=== PATIENT | female | born 1990 | race Caucasian/White ===

== ENCOUNTER → 2016-07-10 | Outpatient (CLI) | payer BC ==
--- NOTE | 2016-07-10 10:14 | US ---
EXAMINATION TYPE: US abdomen complete DATE OF EXAM: 07/10/2016 9:31 AM COMPARISON: on PACS CLINICAL HISTORY: R11.2 Nausea Vomiting R10.10 Abd Pain K21.9Reflux. Bloating. Nausea after eating. EXAM MEASUREMENTS: Liver Length: 15.3 cm Gallbladder Wall: 0.2 cm CHD: 0.3 cm Spleen: 13.4 cm Right Kidney: 11.4 x 4.9 x 3.5 cm Left Kidney: 11.7 x 5.5 x 4.9 cm TECHNOLOGIST IMPRESSION: Pancreas: not seen due to overlying bowel gas Liver: wnl Gallbladder: wnl Evidence for sonographic Kim's sign: negative CHD: wnl Spleen: enlarged Right Kidney: medial anechoic lesion at hilum = 1.8 x 1.1 x 1.1 cm Left Kidney: wnl Upper IVC: seen Abd Aorta: seen The gallbladder wall measures 2.4 mm. The pancreas is poorly visualized. There is a extrarenal pelvis on the right. IMPRESSION: LIMITED EXAMINATION SHOWING NO DEFINITE ACUTE ABNORMALITY.
== END | disposition home or self-care (01) ==
LOC: RADUSWWP 08:59
PROVIDERS: ATTEND Family Medicine
DX: K21.9 Gastro-esophageal reflux disease without esophagitis (principal)
CPT/HCPCS: 76700

== ENCOUNTER 2016-08-28 10:12 | Day surgery (SDC) | payer BC ==
[2016-08-27 08:48] VITALS: BMI 35.4
[~2016-08-28 10:12] MED LIST: LACTATED RINGERS 1,000 ML IV SCH; LIDOCAINE 1% 20 ML VIAL (10MG/ML) FOR IV START INTRADERMA PRN
[2016-08-28 10:48] VITALS: TEMP 98
[2016-08-28] MEDS ORDERED: LACTATED RINGERS 1,000 ML IV ONE (10:50)
[2016-08-28] MEDS ORDERED: PROPOFOL 10 MG/ML 20 ML VIAL IV ONE (11:28)
[2016-08-28] MEDS ORDERED: fentaNYL (PF) 50 MCG/ML 2 ML AMP ONE ×2 (11:28)
--- NOTE | 2016-08-28 11:43 | P.PCN ---
Date of Procedure: 08/28/16 Procedure(s) Performed: BRIEF HISTORY: Patient is a 25-year-old, pleasant, white female, scheduled for an upper endoscopy as part of evaluation of epigastric pain and long-standing history of gastroesophageal reflux symptoms. She also has been have complaining of abdominal bloating for the last 2 years duration. She was started on Prilosec 20 mg daily and symptoms are gradually improving. He scheduled for an upper endoscopy to rule out compensated reflux disease. PROCEDURE PERFORMED: Esophagogastroduodenoscopy with biopsy. PREOPERATIVE DIAGNOSIS: The gastric pain, long-standing history of GERD and abdominal bloating. IV sedation per anesthesia. PROCEDURE: After informed consent was obtained, the patient was brought into the endoscopy unit. IV sedation was administered by Anesthesia under continuous monitoring. Initially the Olympus GIF-140 video endoscope was inserted into the mouth. Esophagus intubated without any difficulty. It was gradually advanced into the stomach and duodenum and carefully examined. The bulb and the second part of the duodenum appeared normal. The scope at this time was withdrawn to the stomach, adequately insufflated with air, and upon careful examination, mucosa of the antrum, had mild mottling of the mucosa and biopsies were done from this area. The body, cardia and the fundus appeared normal. The scope was then withdrawn into the esophagus. Small hiatal hernia noted. The GE junction was located at 35 cm from the incisors. There was a long segment of Dunn's esophagus extended from 25-35 cm from the incisors and multiple biopsies were done from the segment of Dunn's esophagus. At the proximal segment of the Dunn's esophagus there were 2 superficial erosions identified. The rest of the esophagus appeared normal and the patient tolerated the procedure well. IMPRESSION: 1. 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 2. Small hiatal hernia. 3. Mild antral gastritis. RECOMMENDATIONS: The findings of this examination were discussed with the patient as well as her family. She was advised to follow with the biopsy results. If the biopsy does confirm presence of Dunn's esophagus, she can have a repeat upper endoscopy every 2 years. In the meantime I suggested that she increase the Prilosec to 20 mg twice daily and follow antireflux measures.
[2016-08-28 12:21] VITALS: BP 116/69; PULSE 69; RESP 18
== END 2016-08-28 12:36 | disposition home or self-care (01) ==
LOC: ORWHC2ENDO 10:12
PROVIDERS: ATTEND Internal Medicine Gastroenterology
DX: K29.50 Unspecified chronic gastritis without bleeding (principal); K22.70 Barrett's esophagus without dysplasia; K21.9 Gastro-esophageal reflux disease without esophagitis; K44.9 Diaphragmatic hernia without obstruction or gangrene; K59.00 Constipation, unspecified; Z79.899 Other long term (current) drug therapy; Z88.0 Allergy status to penicillin
CPT/HCPCS: 81025; 88305; 88342; 43239; J3010; J2704

== ENCOUNTER → 2017-08-31 | Outpatient (CLI) | payer OTHER ==
--- NOTE | 2017-08-31 08:22 | CT ---
EXAMINATION TYPE: CT facial bones wo con DATE OF EXAM: 08/31/2017 COMPARISON: NONE HISTORY: Localized swelling, mass and lump, head CT DLP: 746.[address] of the facial bones was performed in the axial and coronal planes. Bone and soft tissu e window settings are submitted. The lack of contrast limits evaluation. There is a rounded unilocular lucent lesion periapical region first premolar on the upper left felt t o reflect a periapical cyst which measures 7.8 x 7 mm. Ventral bony erosion is noted. This may corres pond to the site of "lump". No additional lesions are identified. Paranasal sinuses are well aerated. No evidence for fracture. Nose and upper lip ring is incidentally noted with streak artifact. IMPRESSION: 1. Suspect a periapical cyst first premolar upper left mandibular region. Ventral bony erosion noted.
== END | disposition home or self-care (01) ==
LOC: RADCTMAIN 07:46
PROVIDERS: ATTEND Family Medicine
DX: M89.9 Disorder of bone, unspecified (principal)
CPT/HCPCS: 70486

== ENCOUNTER → 2018-04-06 | Outpatient (CLI) | payer OTHER ==
--- NOTE | 2018-04-06 22:55 | US ---
EXAMINATION TYPE: US transvaginal DATE OF EXAM: 04/06/2018 COMPARISON: CT abdomen and pelvis April 29, 2014 CLINICAL HISTORY: N92.0 Excessive and frequent menstruation with. TECHNIQUE: Transvaginal (TV). Date of LMP: 03/29/18 EXAM MEASUREMENTS: Uterus: 6.0 x 2.6 x 3.8 cm Endometrial Stripe: 0.4 cm Right Ovary: 3.1 x 2.0 x 1.9 cm Left Ovary: 3.4 x 2.1 x 2.0 cm 1. Uterus: Anteverted wnl 2. Endometrium: wnl 3. Right Ovary: wnl 4. Left Ovary: wnl 5. Bilateral Adnexa: wnl 6. Posterior cul-de-sac: wnl IMPRESSION: No suspicious finding is seen to account for patient's symptoms.
== END | disposition home or self-care (01) ==
LOC: RADUSWWP 16:44
PROVIDERS: ATTEND Family Medicine
DX: N92.0 Excessive and frequent menstruation with regular cycle (principal)
CPT/HCPCS: 76830

== ENCOUNTER 2018-07-05 21:40 | Emergency (ER) | payer OTHER ==
[2018-07-05] MEDS ORDERED: SODIUM CHLORIDE 0.9% 1,000 ML IV ONE (21:53)
--- NOTE | 2018-07-05 21:55 | ED ---
General Adult HPI - General Chief complaint: Abdominal Pain Stated complaint: Kidney pain, Fever Time Seen by Provider: 07/05/18 21:52 Source: patient Mode of arrival: ambulatory Limitations: no limitations - History of Present Illness Initial comments: Is a previously healthy 27 her old female presents the emergency department today for evaluation of persistent fever, flank pain. Patient reports she's been experiencing right-sided flank pain for approximately 6 days. She initially thought it was just musculoskeletal back pain however the pain pers isted today she developed a fever. She was evaluated by her primary care physician diagnosed with a urinary infection treated with an IM dose of Rocephin, she's been treating her fever with naproxen she was advised by her primary care that if she has persistent fever despite antibiotic and antipyretic use she should come to the ER for evaluation. Despite using antipyretics she had a persistent fever greater than 100 which prompted her to come here for reevaluation. - Related Data Home Medications Medication Instructions Recorded Confirmed Omeprazole [PriLOSEC] 20 mg PO BID 02/26/16 07/05/18 Naproxen 500 mg PO BID PRN 07/05/18 07/05/18 Allergies Allergy/AdvReac Type Severity Reaction Status Date / Time amoxicillin Allergy Rash/Hives Verified 07/05/18 22:45 Review of Systems ROS Statement: Those systems with pertinent positive or pertinent negative responses have been documented in the HPI. ROS Other: All systems not noted in ROS Statement are negative. Past Medical History Past Medical History: No Reported History Additional Past Medical History / Comment(s): boil on abdomed/ staph History of Any Multi-Drug Resistant Organisms: None Reported Date of last positivie culture/infection: 02/26/16 MDRO Source:: abdomen Past Surgical History: No Surgical Hx Reported Additional Past Surgical History / Comment(s): dermoid cyst on ovary removed Past Anesthesia/Blood Transfusion Reactions: Motion Sickness, Postoperative Nausea & Vomiting (PONV) Past Psychological History: No Psychological Hx Reported Smoking Status: Never smoker Past Alcohol Use History: None Reported Past Drug Use History: None Reported - Past Family History Father Family Medical History: Cancer, Diabetes Mellitus Additional Family Medical History / Comment(s): July 2015 of Esophageal cancer Mother Family Medical History: Diabetes Mellitus General Exam - General Exam Comments Initial Comments: Physical Exam GENERAL: Patient is well-developed and well-nourished. Patient is flushed, skin is warm HENT: Normocephalic, Atraumatic. EYES: PERRL, EOMI PULMONARY: Unlabored respirations. No audible rales rhonchi or wheezing was noted. CARDIOVASCULAR: There is a regular rate and rhythm without any murmurs gallops or rubs. ABDOMEN: Soft and nontender with normal bowel sounds. Right sided flank pain to percussion SKIN: Skin is clear with no lesions or rashes and otherwise unremarkable. : Deferred NEUROLOGIC: Patient is alert and oriented x3. Moving all extremities spontaneously MUSCULOSKELETAL: Normal extremities with adequate strength and full range of motion. No lower extremity swelling or edema. No calf tenderness. PSYCHIATRIC: Normal psychiatric evaluation. Limitations: no limitations Limitations: no limitations Course Vital Signs 07/05/18 07/06/18 21:43 00:39 Temperature 100.5 F H 99.5 F Pulse Rate 134 H 68 Respiratory 20 18 Rate Blood Pressure 124/88 109/70 O2 Sat by Pulse 96 99 Oximetry Medical Decision Making - Medical Decision Making Patient was seen and evaluated history was obtained from the patient Outpatient urinalysis suggestive of UTI patient did receive IM Rocephin Patient is tachycardic and febrile upon arrival a sepsis order set was initiated Patient received antipyretics and IV fluids upon reevaluation her tachycardia has improved significantly her fever has resolved she reports feeling well urinalysis again confirms a urinary tract infection she was given IV Rocephin and advised to resume her oral outpatient antibiotics as prescribed. All questions pertaining care were answered return parameters were discussed the patient was discharged home in stable condition. - Lab Data Result diagrams: 07/05/18 22:15 07/05/18 22:15 Lab Results 07/05/18 07/05/18 07/05/18 Range/Units 22:15 22:15 22:15 WBC 9.5 (3.8-10.6) k/uL RBC 4.88 (3.80-5.40) m/uL Hgb 13.5 (11.4-16.0) gm/dL Hct 40.7 (34.0-46.0) % MCV 83.4 (80.0-100.0) fL MCH 27.8 (25.0-35.0) pg MCHC 33.3 (31.0-37.0) g/dL RDW 13.5 (11.5-15.5) % Plt Count 264 (150-450) k/uL Neutrophils % 80 % Lymphocytes % 11 % Monocytes % 6 % Eosinophils % 1 % Basophils % 0 % Neutrophils # 7.6 (1.3-7.7) k/uL Lymphocytes # 1.1 (1.0-4.8) k/uL Monocytes # 0.6 (0-1.0) k/uL Eosinophils # 0.1 (0-0.7) k/uL Basophils # 0.0 (0-0.2) k/uL Sodium 139 (137-145) mmol/L Potassium 4.2 (3.5-5.1) mmol/L Chloride 107 (98-107) mmol/L Carbon Dioxide 22 (22-30) mmol/L Anion Gap 10 mmol/L BUN 16 (7-17) mg/dL Creatinine 0.68 (0.52-1.04) mg/dL Est GFR (CKD-EPI)AfAm >90 (>60 ml/min/1.73 sqM) Est GFR (CKD-EPI)NonAf >90 (>60 ml/min/1.73 sqM) Glucose 135 H (74-99) mg/dL Plasma Lactic Acid Severiano (0.7-2.0) mmol/L Calcium 9.0 (8.4-10.2) mg/dL Total Bilirubin 0.7 (0.2-1.3) mg/dL AST 26 (14-36) U/L ALT 31 (9-52) U/L Alkaline Phosphatase 71 (38-126) U/L Total Protein 7.5 (6.3-8.2) g/dL Albumin 4.1 (3.5-5.0) g/dL Urine Color Urine Appearance (Clear) Urine pH (5.0-8.0) Ur Specific Paloma (1.001-1.035) Urine Protein (Negative) Urine Glucose (UA) (Negative) Urine Ketones (Negative) Urine Blood (Negative) Urine Nitrite (Negative) Urine Bilirubin (Negative) Urine Urobilinogen (<2.0) mg/dL Ur Leukocyte Esterase (Negative) Urine RBC (0-5) /hpf Urine WBC (0-5) /hpf Ur Squamous Epith Cells (0-4) /hpf Urine Mucus (None) /hpf Urine HCG, Qual Not Detected (Not Detectd) Influenza Type A RNA (Not Detectd) Influenza Type B (PCR) (Not Detectd) 07/05/18 07/05/18 07/05/18 Range/Units 22:15 22:15 22:30 WBC (3.8-10.6) k/uL RBC (3.80-5.40) m/uL Hgb (11.4-16.0) gm/dL Hct (34.0-46.0) % MCV (80.0-100.0) fL MCH (25.0-35.0) pg MCHC (31.0-37.0) g/dL RDW (11.5-15.5) % Plt Count (150-450) k/uL Neutrophils % % Lymphocytes % % Monocytes % % Eosinophils % % Basophils % % Neutrophils # (1.3-7.7) k/uL Lymphocytes # (1.0-4.8) k/uL Monocytes # (0-1.0) k/uL Eosinophils # (0-0.7) k/uL Basophils # (0-0.2) k/uL Sodium (137-145) mmol/L Potassium (3.5-5.1) mmol/L Chloride (98-107) mmol/L Carbon Dioxide (22-30) mmol/L Anion Gap mmol/L BUN (7-17) mg/dL Creatinine (0.52-1.04) mg/dL Est GFR (CKD-EPI)AfAm (>60 ml/min/1.73 sqM) Est GFR (CKD-EPI)NonAf (>60 ml/min/1.73 sqM) Glucose (74-99) mg/dL Plasma Lactic Acid Severiano 0.9 (0.7-2.0) mmol/L Calcium (8.4-10.2) mg/dL Total Bilirubin (0.2-1.3) mg/dL AST (14-36) U/L ALT (9-52) U/L Alkaline Phosphatase (38-126) U/L Total Protein (6.3-8.2) g/dL Albumin (3.5-5.0) g/dL Urine Color Yellow Urine Appearance Clear (Clear) Urine pH 7.5 (5.0-8.0) Ur Specific [place] 1.014 (1.001-1.035) Urine Protein Trace H (Negative) Urine Glucose (UA) Negative (Negative) Urine Ketones Negative (Negative) Urine Blood Negative (Negative) Urine Nitrite Negative (Negative) Urine Bilirubin Negative (Negative) Urine Urobilinogen 2.0 (<2.0) mg/dL Ur Leukocyte Esterase Moderate H (Negative) Urine RBC 4 (0-5) /hpf Urine WBC 61 H (0-5) /hpf Ur Squamous Epith Cells 4 (0-4) /hpf Urine Mucus Rare H (None) /hpf Urine HCG, Qual (Not Detectd) Influenza Type A RNA Not Detected (Not Detectd) Influenza Type B (PCR) Not Detected (Not Detectd) Disposition Clinical Impression: UTI (urinary tract infection) Disposition: HOME SELF-CARE Condition: Good Instructions (If sedation given, give patient instructions): Urinary Tract Infection in Women (ED) Is patient prescribed a controlled substance at d/c from ED?: No Referrals: David Robison III, MD [Primary Care Provider] - 1-2 days
[2018-07-05] MEDS ORDERED: ACETAMINOPHEN TAB 500 MG TAB PO STA (22:36)
[2018-07-05 22:37] LABS: Basophils % (A) 0 %; Eosinophils # (A) 0.1 k/uL (0-0.7); Eosinophils % (A) 1 %; HCT 40.7 % (34.0-46.0); HGB 13.5 gm/dL (11.4-16.0); Lymphocytes # (A) 1.1 k/uL (1.0-4.8); Lymphocytes % (A) 11 %; MCH 27.8 pg (25.0-35.0); MCHC 33.3 g/dL (31.0-37.0); MCV 83.4 fL (80.0-100.0); Mean Platelet Volume 6.5; Monocytes # (A) 0.6 k/uL (0-1.0); Monocytes % (A) 6 %; Neutrophils # (A) 7.6 k/uL (1.3-7.7); Neutrophils % (A) 80 %; Platelet Count 264 k/uL (150-450); RBC 4.88 m/uL (3.80-5.40); RDW 13.5 % (11.5-15.5); WBC 9.5 k/uL (3.8-10.6)
[2018-07-05] MEDS: SODIUM CHLORIDE 0.9% 500 ML 500 ML IV SCH (22:41)
[2018-07-05 22:53] LABS: ALT 31 U/L (9-52); AST 26 U/L (14-36); Albumin 4.1 g/dL (3.5-5.0); Alkaline Phosphatase 71 U/L (38-126); Anion Gap 10 mmol/L; Blood Urea Nitrogen 16 mg/dL (7-17); Carbon Dioxide 22 mmol/L (22-30); Chloride 107 mmol/L (98-107); Glucose 135 mg/dL (74-99); Potassium 4.2 mmol/L (3.5-5.1); Sodium 139 mmol/L (137-145); Total Bilirubin 0.7 mg/dL (0.2-1.3); Total Protein 7.5 g/dL (6.3-8.2)
[2018-07-05 22:57] LABS: Appearance,Urine Clear (Clear); Bilirubin,Urine Negative (Negative); Blood,Urine Negative (Negative); Color,Urine Yellow; Glucose,Urine (UA) Negative (Negative); Ketones,Urine Negative (Negative); Leukocyte Esterase,Urine Moderate (Negative); Mucus,Urine Rare /hpf; Nitrite,Urine Negative (Negative); PH, Urine 7.5 (5.0-8.0); Protein,Urine Trace (Negative); RBC,Urine 4 /hpf (0-5); Specific Gravity,Urine 1.014 (1.001-1.035); Squamous Epithelial Cell,Urine 4 /hpf (0-4); WBC,Urine 61 /hpf (0-5)
[2018-07-06 00:41] VITALS: BP 109/70; PULSE 68; RESP 18; TEMP 99.5
== END 2018-07-06 00:39 | disposition home or self-care (01) ==
LOC: EC 21:40
DX: N39.0 Urinary tract infection, site not specified (principal); Z98.890 Other specified postprocedural states; Z79.899 Other long term (current) drug therapy; Z88.0 Allergy status to penicillin
CPT/HCPCS: 36415; 80053; 83605; 85025; 81001; 81025; 87040; 87086; 87502; 99284; 96365; 96361; J0696

== ENCOUNTER 2019-05-24 08:57 | Day surgery (SDC) | payer BC, OTHER ==
[2019-05-19 14:31] VITALS: BMI 35.4
[2019-05-24 09:57] VITALS: TEMP 98.9
[2019-05-24] MEDS ORDERED: PROPOFOL 10 MG/ML 20 ML VIAL IV ONE (10:16)
[2019-05-24] MEDS ORDERED: LIDOCAINE 1% INJ 10MG/ML (20 ML MDV) ONE (10:16)
[2019-05-24] MEDS ORDERED: GLYCOPYRROLATE 0.2 MG/ML 2 ML VIAL ONE (10:16)
--- NOTE | 2019-05-24 10:27 | P.PCN ---
Date of Procedure: 05/24/19 Procedure(s) Performed: BRIEF HISTORY: Patient is a 28-year-old, pleasant, female, scheduled for an upper endoscopy as a part of surveillance of Dunn's esophagus. She does have long-standing history of GERD and remains on Prilosec 20 mg twice daily. PROCEDURE PERFORMED: Esophagogastroduodenoscopy biopsy. PREOPERATIVE DIAGNOSIS: Surveillance of Dunn's esophagus. IV sedation per anesthesia. PROCEDURE: After informed consent was obtained, the patient was brought into the endoscopy unit. IV sedation was administered by Anesthesia under continuous monitoring. Initially the Olympus GIF-140 video endoscope was inserted into the mouth. Esophagus intubated without any difficulty. It was gradually advanced into the stomach and duodenum and carefully examined. The bulb and the second part of the duodenum appeared normal. The scope at this time was withdrawn to the stomach, adequately insufflated with air, and upon careful examination, mucosa of the antrum, body, cardia and the fundus appeared normal. The scope was then withdrawn into the esophagus. The GE junction was located at 34 cm from the incisors. Moderate size hiatal hernia noted There was a long segment of Dunn's esophagus and from 24-34 cm from the incisors and multiple biopsies were done to rule out dysplasia. The rest of the esophagus appeared normal. There were no erosions or ulcerations seen and the patient tolerated the procedure well. IMPRESSION: 1. Long segment Dunn's esophagus extending from 24-34 cm from the incisors with normal-appearing mucosa status post multiple biopsies to rule out dysplasia. 2. Moderate size hiatal hernia. RECOMMENDATIONS: The findings of this examination were discussed with the patient as well as a family. She was advised to follow with the biopsy results. If the biopsy shows no evidence of dysplasia, she can have a repeat upper endoscopy in 2 years. He'll continue with omeprazole 20 mg twice daily and follow antireflux measures
[2019-05-24 10:34] VITALS: RESP 16
[2019-05-24 10:49] VITALS: PULSE 85
[2019-05-24 10:59] VITALS: BP 111/73
== END 2019-05-24 11:21 | disposition home or self-care (01) ==
LOC: ORWHC2ENDO 08:57
PROVIDERS: ATTEND Internal Medicine Gastroenterology
DX: K22.70 Barrett's esophagus without dysplasia (principal); K21.9 Gastro-esophageal reflux disease without esophagitis; K44.9 Diaphragmatic hernia without obstruction or gangrene; Z88.0 Allergy status to penicillin; G43.909 Migraine, unspecified, not intractable, without status migrainosus; Z79.899 Other long term (current) drug therapy
CPT/HCPCS: 81025; 43239; J2001; J2704; 88305

== ENCOUNTER 2021-08-07 16:22 | Outpatient (CLI) | payer BC, OTHER ==
[2021-08-07 17:55] VITALS: BP 124/68; PULSE 107; RESP 16; TEMP 98.9
--- NOTE | 2021-08-30 11:55 | P.MSEPDOC ---
Presenting Problems - Arrival Data Date of Arrival on Unit: 08/07/21 Time of Arrival on Unit: 16:30 Mode of Transport: Ambulatory - Complaint OB-Reason for Admission/Chief Complaint: Decreased Movement Medical History - Information : 1 Para: 0 Term: 0 : 0 Abortions: Spontaneous or Elective: 0 Number of Living Children: 0 - Gestational Age Gestational Age by MOMO (wks/days): 30 Weeks and 5 Days Review of Systems - Review of Systems Constitutional: No problems Breast: No problems ENT: No problems Cardiovascular: No problems Respiratory: No problems Gastrointestinal: No problems Genitourinary: No problems Musculoskeletal: No problems Neurological: No problems Skin: No problems Vital Signs - Temperature Temperature: 98.9 F Temperature Source: Temporal Artery Scan - Pulse Radial Pulse Rate: 107 Pulse Assessment Method: Auscultation - Respirations Respiratory Rate: 16 Oxygen Delivery Method: Room Air - Blood Pressure Right Arm Blood Pressure: 124/68 Blood Pressure Mean: 86 Blood Pressure Source: Automatic Cuff Medical Screen Scoring - Assessment - Baby A Baseline FHR: 150 Heart Rate - NICHD Category: Category I (Normal) NST: Reactive Physician Notification - Physician Notified Physician Notified Date: 08/07/21 Physician Notified Time: 17:30 Physician: Cal Pringle New Order Received: Yes - Notification Comment Comment: observe ,monitor, reactive NST. Discharge home with instructions if Reactive. Maternal Triage Index - Maternal Triage Index Presenting for scheduled procedure w/no complaint: No - Stat/Priority 1 Stat Priority 1: No - Urgent/Priority 2 Urgent Priority 2: Yes Provider Notified: Cal Pringle Provider Notified Time: 17:30 Criteria Met for Priority 2: decreased movement. 30 weeks. not felt baby move since noon. now 1630 Disposition - Disposition OB Disposition: Discharge to home, Written follow up instructions reviewed Discharge Date: 08/07/21 Discharge Time: 17:35 I agree with the RN Medical Screening Exam: Yes Physician's MSE Comment: I have neither seen nor examined the patient. Case reviewed; plan agreed upon as documented in EMR&OBIX.: Yes Diagnosis: RELATED CONDITIONS, UNSPECIFIED, THIRD TRIMESTER
== END 2021-08-07 17:35 | disposition home or self-care (01) ==
LOC: FBPOP 16:22
PROVIDERS: ATTEND Obstetrics & Gynecology
DX: O47.03 False labor before 37 completed weeks of gestation, third trimester (principal); Z3A.30 30 weeks gestation of pregnancy; Z88.1 Allergy status to other antibiotic agents
CPT/HCPCS: 59025; 99213

== ENCOUNTER 2021-10-04 13:05 | Outpatient (CLI) | payer BC, OTHER ==
[2021-10-04 15:07] VITALS: BP 113/71; PULSE 115; RESP 18; TEMP 98.1
--- NOTE | 2021-10-21 09:08 | P.MSEPDOC ---
Presenting Problems - Arrival Data Date of Arrival on Unit: 10/04/21 Time of Arrival on Unit: 13:05 Mode of Transport: Ambulatory - Complaint OB-Reason for Admission/Chief Complaint: Possible Onset of Labor, Vaginal Bleeding Comment: pt presents to triage for contractions and a little vaginal bleeding Medical History - Information : 1 Para: 0 Term: 0 : 0 Abortions: Spontaneous or Elective: 0 Number of Living Children: 0 - Gestational Age Gestational Age by MOMO (wks/days): 39 Weeks and 0 Days Review of Systems - Review of Systems Constitutional: No problems Breast: No problems ENT: No problems Cardiovascular: No problems Respiratory: No problems Gastrointestinal: No problems Genitourinary: No problems Musculoskeletal: No problems Neurological: No problems Skin: No problems Vital Signs - Temperature Temperature: 98.1 F Temperature Source: Temporal Artery Scan - Pulse Right Brachial Pulse Rate: 115 Pulse Assessment Method: Automatic Cuff - Respirations Respiratory Rate: 18 Oxygen Delivery Method: Room Air - Blood Pressure Right Arm Blood Pressure: 113/71 Blood Pressure Mean: 85 Blood Pressure Source: Automatic Cuff Medical Screen Scoring - Cervical Exam Dilation (cm): 3 Effacement (%): 70 Station: -2 - Uterine Contractions Frequency From (mins): 3 Frequency To (mins): 4 Duration From (seconds): 50 Duration To (seconds): 80 Intensity: Mild Resting: Soft to palpation - Assessment - Baby A Baseline FHR: 150 Heart Rate - NICHD Category: Category I (Normal) NST: Reactive Physician Notification - Physician Notified Physician Notified Date: 10/04/21 Physician Notified Time: 13:44 Physician: Darcy Abad Order Received: Yes Maternal Triage Index - Maternal Triage Index Presenting for scheduled procedure w/no complaint: No - Stat/Priority 1 Stat Priority 1: No - Urgent/Priority 2 Urgent Priority 2: No - Prompt/Priority 3 Prompt Priority 3: Yes Criteria Met for Priority 3: pt presents to triage for contractions and a little vaginal bleeding, GA 39 weeks Disposition - Disposition OB Disposition: Admit, Discharge to home, Written follow up instructions reviewed Discharge Date: 10/04/21 Discharge Time: 14:45 I agree with the RN Medical Screening Exam: Yes Case reviewed; plan agreed upon as documented in EMR&OBIX.: Yes Diagnosis: FALSE LABOR AT OR AFTER 37 COMPLETED WEEKS OF GESTATION
== END 2021-10-04 14:45 | disposition home or self-care (01) ==
LOC: FBPOP 13:05
PROVIDERS: ATTEND Obstetrics & Gynecology
DX: O47.1 False labor at or after 37 completed weeks of gestation (principal); Z3A.39 39 weeks gestation of pregnancy
CPT/HCPCS: 59025; 84112; 99213

== ENCOUNTER 2021-10-04 22:31 | Outpatient (CLI) | payer BC, OTHER ==
[2021-10-05 01:29] VITALS: BP 130/83; PULSE 105; RESP 16; TEMP 98.1
--- NOTE | 2021-10-21 09:07 | P.MSEPDOC ---
Presenting Problems - Arrival Data Date of Arrival on Unit: 10/04/21 Time of Arrival on Unit: 22:31 Mode of Transport: Ambulatory - Complaint OB-Reason for Admission/Chief Complaint: Possible Onset of Labor Comment: pt. states contractions started at 0300am today are 3-5 min apart rating them 7/10. Medical History - Information : 1 Para: 0 Term: 0 : 0 Abortions: Spontaneous or Elective: 0 Number of Living Children: 0 - Gestational Age Gestational Age by MOMO (wks/days): 39 Weeks and 1 Days Review of Systems - Review of Systems Constitutional: No problems Breast: No problems ENT: No problems Cardiovascular: No problems Respiratory: No problems Gastrointestinal: No problems Genitourinary: No problems Musculoskeletal: No problems Neurological: No problems Skin: No problems Vital Signs - Temperature Temperature: 98.1 F Temperature Source: Oral - Pulse Pulse Oximetery Pulse Rate: 105 Pulse Assessment Method: Auscultation - Respirations Respiratory Rate: 16 Oxygen Delivery Method: Room Air O2 Sat by Pulse Oximetry: 95 - Blood Pressure Right Arm Blood Pressure: 130/83 Blood Pressure Mean: 98 Blood Pressure Source: Automatic Cuff Medical Screen Scoring - Cervical Exam Dilation (cm): 3 Effacement (%): 70 Station: -3 Membranes: Intact - Uterine Contractions Frequency From (mins): 2 Frequency To (mins): 8 Duration From (seconds): 30 Duration To (seconds): 60 Intensity: Mild Resting: Soft to palpation - Assessment - Baby A Baseline FHR: 150 Heart Rate - NICHD Category: Category I (Normal) NST: Reactive Physician Notification - Physician Notified Physician Notified Date: 10/04/21 Physician Notified Time: 23:55 Physician: Darcy Abad Order Received: Yes - Notification Comment Comment: orders to discharge pt. home, pt. had no cervical change after 1 hour Maternal Triage Index - Maternal Triage Index Presenting for scheduled procedure w/no complaint: No - Stat/Priority 1 Stat Priority 1: No - Urgent/Priority 2 Urgent Priority 2: No - Prompt/Priority 3 Prompt Priority 3: No - Non-Urgent/Priority 4 Non-Urgent Priority 4: Yes Criteria Met for Priority 4: 39.0, contractions Disposition - Disposition OB Disposition: Discharge to home Discharge Date: 10/05/21 Discharge Time: 00:12 I agree with the RN Medical Screening Exam: Yes Case reviewed; plan agreed upon as documented in EMR&OBIX.: Yes Diagnosis: FALSE LABOR AT OR AFTER 37 COMPLETED WEEKS OF GESTATION Additional Diagnoses: Patient was neither seen nor examined by me
== END 2021-10-05 00:12 | disposition home or self-care (01) ==
LOC: FBPOP 22:31
PROVIDERS: ATTEND Obstetrics & Gynecology
DX: O47.1 False labor at or after 37 completed weeks of gestation (principal); Z3A.39 39 weeks gestation of pregnancy
CPT/HCPCS: 59025; 84112; 99213

== ENCOUNTER 2021-10-06 16:04 | Inpatient (IN) | payer BC, OTHER ==
[2021-10-06] MEDS ORDERED: OXYTOCIN 10 UNIT/ML 1 ML VIAL IM PRN (17:08)
[2021-10-06] MEDS ORDERED: CARBOPROST TROMETHAMINE 250 MCG/ML 1 ML AMP IM PRN (17:08)
[2021-10-06] MEDS ORDERED: LIDOCAINE 0.5% (PF) 5 MG/ML (50 ML SDV) SQ PRN (17:08)
[2021-10-06] MEDS ORDERED: METHYLERGONOVINE 0.2 MG/ML 1 ML AMP IM PRN (17:08)
[2021-10-06] MEDS ORDERED: TERBUTALINE 1 MG/ML VIAL SQ PRN (17:08)
[2021-10-06] MEDS ORDERED: BUTORPHANOL 1 MG/ML 1 ML VIAL IV PRN (17:11)
[2021-10-06] MEDS ORDERED: SODIUM CHLORIDE 0.9% 100 ML BAG ONE (17:40)
[2021-10-06] MEDS ORDERED: ROPIVACAINE 5MG/ML 20ML VIAL ONE (17:40)
[2021-10-06] MEDS ORDERED: fentaNYL (PF) 50 MCG/ML 5 ML AMP ONE (17:40)
[2021-10-06 17:41] LABS: ALT 12 U/L (4-34); AST 18 U/L (14-36); African American GFR (CKD) >90 (>60 ml/min/1.73 sqM); Blood Urea Nitrogen 10 mg/dL (7-17); LDH 440 U/L (313-618); Non-African American GFR(CKD) >90 (>60 ml/min/1.73 sqM); Uric Acid 6.1 mg/dL (3.7-7.4)
[2021-10-06 17:42] LABS: Basophils % (A) 0 %; Eosinophils # (A) 0.1 k/uL (0-0.7); Eosinophils % (A) 1 %; HCT 40.8 % (34.0-46.0); HGB 13.7 gm/dL (11.4-16.0); Lymphocytes # (A) 1.4 k/uL (1.0-4.8); Lymphocytes % (A) 10 %; MCH 29.9 pg (25.0-35.0); MCHC 33.7 g/dL (31.0-37.0); MCV 88.7 fL (80.0-100.0); Mean Platelet Volume 8.2; Monocytes # (A) 0.6 k/uL (0-1.0); Monocytes % (A) 4 %; Neutrophils # (A) 12.1 k/uL (1.3-7.7); Neutrophils % (A) 84 %; Platelet Count 304 k/uL (150-450); RDW 15.6 % (11.5-15.5); WBC 14.4 k/uL (3.8-10.6)
--- NOTE | 2021-10-06 21:26 | P.HPOB ---
History of Present Illness H&P Date: 10/06/21 Chief Complaint: 39-2/7 weeks, spontaneous rupture, active labor The patient is a 30-year-old 1 para 0 admitted at 39-2/7 weeks as established by an 8 week ultrasound. She is admitted with documented spontaneous rupture of membranes in active labor at approximately 5 cm of dilation. Her has been essentially uncomplicated though she did have Covid during the first trimester. She is undergone weekly nonstress testing since 32 weeks which has been reassuring throughout. She also carries a history of HSV for which she has been prophylaxed with Valtrex since 36 weeks. On labor and delivery, all signs reassuring with a category 1 heart rate tracing. Group B strep status is negative. Obstetrical history: 1 para 0 with current statistics listed in history of present illness. EDC of 10/11/2021 was established by an 8 week ultrasound. Laboratory workup demonstrates a blood type of O+ with a negative antibody screen. Rubella status is immune. The remainder of the laboratory workup was within normal limits. One hour Glucola was normal and group B strep status is negative. Gynecologic history: Unremarkable with no history of any infections to include STDs aside from the history of HSV for which she has had no outbreaks during the and has been prophylaxis since 36 weeks with Valtrex. Review of Systems Review of systems is confined to history of present illness. Past Medical History Past Medical History: No Reported History, GERD/Reflux Additional Past Medical History / Comment(s): migraines, staph infection on abdomen History of Any Multi-Drug Resistant Organisms: None Reported Date of last positivie culture/infection: 02/26/16 MDRO Source:: abdomen Past Surgical History: No Surgical Hx Reported Additional Past Surgical History / Comment(s): dermoid cyst on ovary removed Past Anesthesia/Blood Transfusion Reactions: Motion Sickness, Postoperative Damien sea & Vomiting (PONV) Past Psychological History: No Psychological Hx Reported Smoking Status: Never smoker Past Alcohol Use History: Occasional Past Drug Use History: None Reported - Past Family History Father Family Medical History: Cancer Additional Family Medical History / Comment(s): July 2015 of Esophageal cancer Mother Family Medical History: Diabetes Mellitus Medications and Allergies Home Medications Medication Instructions Recorded Confirmed Type Omeprazole [PriLOSEC] 20 mg PO BID 02/26/16 10/06/21 History Aspirin [[place] Aspirin EC] 81 mg PO DAILY 08/07/21 10/06/21 History Pnv,Calcium 72/Iron/Folic Acid 1 tab PO DAILY 08/07/21 10/06/21 History [ Plus Tablet] valACYclovir HCL [Valtrex] 500 mg PO BID 10/04/21 10/06/21 History Allergies Allergy/AdvReac Type Severity Reaction Status Date / Time amoxicillin Allergy Mild Rash/Hives Verified 10/06/21 16:22 nitrofurantoin Allergy Rash/Hives Verified 10/06/21 16:22 [From Macrobid] Exam Vital Signs Temp Pulse Resp BP Pulse Ox 10/06/21 16:24 98.0 F 114 H 18 177/84 99 Intake and Output 10/06/21 10/06/21 10/06/21 06:59 14:59 22:59 Other: Weight 106.594 kg In general, this is a well-developed, well-nourished white female in no acute distress. Her heart has a regular rhythm and rate without murmur. Her lungs are clear to auscultation bilaterally in all mcmahon. Her abdomen is gravid, nondistended, has normal active bowel sounds, is soft, nontender, and without any palpable masses aside from uterine fundus. Her extremities are without any cyanosis, clubbing, or significant edema and are nontender to palpation bilaterally. Digital cervical examination at presentation demonstrated cervix to be 5 cm dilated, 70% effaced the vertex in presentation at -2 station. Spontaneous rupture of membranes was documented. Results Result Diagrams: 10/06/21 17:12 10/06/21 17:12 Abnormal Lab Results - Last 24 Hours (Table) 10/06/21 Range/Units 17:12 WBC 14.4 H (3.8-10.6) k/uL RDW 15.6 H (11.5-15.5) % Neutrophils # 12.1 H (1.3-7.7) k/uL Assessment and Plan (1) Active labor at term Current Visit: Yes Status: Acute Code(s): [id number] - SNOMED Code(s): 72668903 Plan: The patient has been admitted for active management of labor. An epidural catheter has been placed for analgesia. She'll continue to have close maternal and surveillance and expectant management will be practiced.
[2021-10-06] MEDS ORDERED: CITRIC ACID-SODIUM CITRATE 15 ML CUP PO ONE (22:44)
[2021-10-06] MEDS ORDERED: LACTATED RINGERS 1,000 ML IV ONE (22:44)
[2021-10-06] MEDS ORDERED: ONDANSETRON 4 MG/2 ML VIAL ONE (22:47)
[2021-10-06] MEDS ORDERED: KETOROLAC 15 MG/ML 1 ML VIAL ONE (22:47)
[2021-10-06] MEDS ORDERED: MORPHINE SULFATE (PF) 0.3 MG/0.3 ML SYR ONE (22:47)
[2021-10-06] MEDS ORDERED: OXYTOCIN 30 UNITS/500 ML NS BAG IV ONE (22:47)
[2021-10-06] MEDS ORDERED: ZOLPIDEM 5 MG TAB PO PRN (23:35)
[2021-10-06] MEDS ORDERED: METOCLOPRAMIDE 5 MG/ML 2 ML VIAL IVP PRN (23:35)
[2021-10-06] MEDS ORDERED: diphenhydrAMINE 50 MG/ML 1 ML VIAL IVP PRN ×2 (23:35)
[2021-10-06] MEDS ORDERED: KETOROLAC 15 MG/ML 1 ML VIAL IVP PRN (23:35)
[2021-10-06] MEDS ORDERED: LANOLIN CREAM 5 GM TUBE TOPICAL PRN (23:35)
[2021-10-06] MEDS ORDERED: NALOXONE 0.4 MG/ML 1 ML VIAL IV PRN (23:35)
[2021-10-06] MEDS ORDERED: ONDANSETRON 4 MG/2 ML VIAL IVP PRN (23:35)
[2021-10-06] MEDS ORDERED: diphenhydrAMINE 50 MG CAP PO PRN (23:35)
[2021-10-06] MEDS ORDERED: HYDROmorphone 2 MG TAB PO PRN ×2 (23:35)
[2021-10-06] MEDS ORDERED: diphenhydrAMINE 25 MG CAP PO PRN (23:35)
[2021-10-06] MEDS ORDERED: SIMETHICONE 80 MG CHEWABLE PO PRN (23:35)
[2021-10-06] MEDS ORDERED: OXYTOCIN 30 UNITS/500 ML NS 30 UNIT in SALINE 1 500ML.BAG IV SCH (23:45)
--- NOTE | 2021-10-06 23:46 | P.OP ---
Date of Procedure: 10/06/21 Preoperative Diagnosis: #1. 39-2/7 weeks, labor, spontaneous rupture of membranes #2. Arrest of descent #3. Suspected occiput posterior position Postoperative Diagnosis: Same plus #4. Meconium-stained fluid Procedure(s) Performed: #1. Primary low-transverse section Anesthesia: epidural Surgeon: Cal Pringle Manager Of Exhibitions And Collections #1: Marcellus Ashley Estimated Blood Loss (ml): 510 IV fluids (ml): 1,000 Urine output (ml): 250 Pathology: none sent Condition: stable Disposition: floor Operative Findings: Preoperatively, the patient had made slow progress through the later portion of the active phase of labor but ultimately reached complete. She pushed over the course of approximately 1 hour with no descent of the head below a -1 to - 2 station with A beginning to develop. The head was thought to be in the occiput posterior position. She also is noted to have a very narrow pubic arch. Additionally, heart tones remained category 1 with an elevated baseline in the area of 170s. She was also felt to have told meconium-stained fluid over the course of the afternoon. Given these findings, decision was made to proceed to the operating room. She was taken to the operating room where she was delivered of a viable 7 lbs. 11 oz. baby boy with Apgars of 8 at 1 minute and 9 at 5 minutes delivered in the direct occiput posterior position. Thorough suctioning was carried out prior to delivery of the body and after delivery of the head. The head was encountered deep within the pelvis and was difficult to elevate up and through the incision leading to a laceration of the incision on the left side towards the uterine vessels. The placenta was delivered manually, intact, and grossly normal but was meconium-stained with a grossly normal three-vessel cord. The uterus, tubes, and ovaries were otherwise normal though there was a very small subserosal fibroid on the right anterior lower segment less than 1 cm in size. Description of Procedure: The patient was prepped and draped in usual fashion after the epidural catheter was bolused by the anesthesiologist. A Pfannenstiel incision was made and extended into the abdominal cavity without difficulty. The bladder peritoneum was elevated, incised, and reflected distally. A 2 cm incision was made in the transverse plane of the lower uterine segment to enter the uterus at which time lightly meconium-stained fluid was noted. The incision was extended in both directions using the bandage scissors. The head was encountered deep within the pelvis withto get my hand below. As a result, I used 2 fingers on the shoulders to elevate the head from the pelvis to some extent and was able to get underneath the head to delivered up and through the incision where the nose and mouth were thoroughly suctioned. The infant was delivered onto the field where the cord was doubly clamped, cut, and the infant passed resuscitative measures with weight and Apgars as noted above. The placenta was delivered manually, intact, and grossly normal with a grossly normal three-vessel cord as noted above. The uterus was exteriorized and the interior cavity swept of any remaining placental or membranous fragments. After removal of the remaining membranes, the margins of the incision were grasped with Rios clamps at which time there was noted to be a laceration or extension of the incision on the left angle downward towards the cervix and uterine blood vessels. I was able to capture the corner with Rios clamp. The incision was then closed with 2 layers, the first layer being a running locking stitch of 0 chromic catgut followed by a running imbricating stitch of 0 chromic catgut, each from angle to angle. Hemostasis appeared to be excellent. The posterior cul-de-sac was suctioned with a guard and the uterine and ovarian findings were as noted above. The uterus was replaced within the abdominal cavity and the gutters swept of any remaining blood, fluid, or clot. Examination of the incision demonstrated both angles to be dry but a small point of bleeding in the midline was noted and was made hemostatic with a single grxksu-pw-eoqyu stitch of 0 steam plant operator rasheed catgut. Any small points of bleeding were made hemostatic with the Bovie. After assuring hemostasis, the parietal peritoneum was loosely reapproximated in the layer of muscles examined and found to be hemostatic. The fascia was closed with 2 running stitches of 0 Vicryl proceeding from the lateral margins to the midpoint. The subcutaneous tissues were irrigated, made hemostatic with the Ranjit vie, and reapproximated with a running stitch of 30 plain catgut. The incision was closed with a running subcuticular stitch of 4-0 Vicryl from margin to margin followed by half-inch Steri-Strips placed with Mastisol. Quantitative blood loss for the case was 510 mL's. There were no complications. All sponge, instrument, and needle counts were correct. The patient tolerated the procedure well and proceeded to the recovery room in stable condition. Both mother and are resting comfortably in recovery.
[2021-10-07 08:03] LABS: Basophils % (A) 0 %; Eosinophils % (A) 0 %; HCT 27.9 % (34.0-46.0); Lymphocytes # (A) 1.2 k/uL (1.0-4.8); Lymphocytes % (A) 6 %; MCH 29.3 pg (25.0-35.0); MCHC 32.9 g/dL (31.0-37.0); MCV 89.3 fL (80.0-100.0); Mean Platelet Volume 8.4; Monocytes # (A) 0.9 k/uL (0-1.0); Monocytes % (A) 4 %; Neutrophils # (A) 17.6 k/uL (1.3-7.7); Neutrophils % (A) 89 %; Platelet Count 242 k/uL (150-450); RBC 3.12 m/uL (3.80-5.40); RDW 15.9 % (11.5-15.5); WBC 19.8 k/uL (3.8-10.6)
[2021-10-07 08:07] LABS: HGB 9.2 gm/dL (11.4-16.0)
[2021-10-07] MEDS: SENNOSIDES-DOCUSATE SODIUM 1 EACH TAB PO SCH ×2 (08:20→20:21)
--- NOTE | 2021-10-07 08:45 | P.PN ---
Progress Note - Text Progress Note Date: 10/07/21 (036) Anesthesia Postop day 1 Subjective: Status Post section with Duramorph. Patient seen and examined. Doing well without complaint. VAS 1 out of 10. Slight nauseabetter with breakthrough meds. Mild pruritus. Afebrile. Gross lower extremity strength intact. Without apparent anesthetic complications. Objective: Vital signs reviewed Heart: Regular Rate Lungs: Good chest excursion Abdomen: Appears nondistended Assessment: Status post with Duramorph postop day 1 Plan: Continue current care with your medical management. Anticipated and the Duramorph around midnight tonight, you may see increased pain needs around this time.
--- NOTE | 2021-10-07 08:49 | P.PN ---
Subjective Progress Note Date: 10/07/21 Principal diagnosis: Doing well postoperative day #1 Negative flatus. No complaints of pain. Moderate to minimal lochia rubra. Objective - Vital Signs Vital signs: Vital Signs Temp 98.3 F 10/07/21 08:00 Pulse 105 H 10/07/21 08:00 Resp 16 10/07/21 08:00 BP 96/66 10/07/21 08:00 Pulse Ox 100 10/07/21 04:00 FiO2 Intake & Output 10/06/21 10/07/21 10/07/21 18:59 06:59 18:59 Output Total 1300 250 Balance -1300 -250 Weight 106.594 kg Output: Urine 280 250 Uretheral (Milligan) 125 Estimated Blood Loss 510 Output, Quantitative 510 Blood Loss - Constitutional General appearance: Present: average body habitus - EENT Eyes: Present: PERRLA ENT: Present: hearing grossly normal - Respiratory Respiratory: bilateral: CTA - Cardiovascular Rhythm: regular - Gastrointestinal General gastrointestinal: Present: normal bowel sounds - Genitourinary Genitourinary Comment(s): Incision clean and dry, intact, Steri-Strips applied. Fundus firm, midline, symmetric, 18 week size. - Integumentary Integumentary: Present: normal - Musculoskeletal Musculoskeletal: Present: gait normal, strength equal bilaterally - Psychiatric Psychiatric: Present: A&O x's 3, appropriate affect, intact judgment & insight - Labs CBC & Chem 7: 10/07/21 07:22 10/06/21 17:12 Labs: Abnormal Lab Results - Last 24 Hours (Table) 10/06/21 10/07/21 Range/Units 17:12 07: WBC 14.4 H 19.8 H (3.8-10.6) k/uL RBC 3.12 L (3.80-5.40) m/uL Hgb 9.2 L D (11.4-16.0) gm/dL Hct 27.9 L (34.0-46.0) % RDW 15.6 H 15.9 H (11.5-15.5) % Neutrophils # 12.1 H 17.6 H (1.3-7.7) k/uL Assessment and Plan Assessment: Doing well first postoperative day Plan: Patient is currently working on breast-feeding with the admissions consultant. We will likely circumcise infant tomorrow morning. Continue postoperative care. Advanced diet and activity. Likely discharge home tomorrow. Time with Patient: Less than 30
[2021-10-07] MEDS: IBUPROFEN 600 MG TAB PO SCH ×4 (12:38→23:41)
[2021-10-07] MEDS: ACETAMINOPHEN TAB 500 MG TAB PO SCH ×4 (15:08→20:21)
[2021-10-07] MEDS: LACTATED RINGERS 1,000 ML IV SCH ×6 (16:50→16:59)
[2021-10-07 23:49] VITALS: RESP 16
[2021-10-08] MEDS: ACETAMINOPHEN TAB 500 MG TAB PO SCH (04:05)
--- NOTE | 2021-10-08 07:50 | P.DS ---
Providers Date of admission: 10/06/21 16:52 Expected date of discharge: 10/08/21 Attending physician: Cal Pringle Primary care physician: Stated None Hospital Course: This is a 30-year-old female 1 para 0 EDC 10/11/2021 at 39-2/7 weeks' gestation who presented in active spontaneous labor. History significant for positive HSV, no lesions or prodrome noted. Blood type O+, rubella status immune. Please see dictated history and physical for details. After a long labor, patient experienced arrest of descent and underwent a primary low transverse section, giving to a liveborn male infant with scores of 8 and 9 at one and 5 minutes respectively. Infant was occiput posterior, he weighed 7 lbs. 11 oz. or 3490 g. Please see dictated operative note for details. This morning the patient is doing well. She is voiding, ambulate in, passing flatus without difficulty. Vital signs are stable and she is afebrile. Fundus is firm and in the midline, symmetric and 18 week size. Breast-feeding is going well. Incision is clean and dry, intact, Steri-Strips applied. Extremities are negative for edema. Chest is clear in all mcmahon. [place] circumcision has been performed this morning. Patient is judged to be in very good condition for discharge home. She will follow-up with me in the office in 2 weeks for incision check. I have reminded her no intercourse, tampons or douching. She will use egzy-flz-ykokskp Advil or Aleve, or Motrin as needed for pain. She will call with any fevers shakes or chills, foul smelling or copious lochia, with the passage of large blood clots, with any pain not alleviated by [id number]-[id number] products, or indeed with any concerns. Continue vitamin daily. Prescription for a double electric breast pump is given. Assessment: Doing well second postoperative day Patient Condition at Discharge: Good Plan - Discharge Summary Discharge Rx Participant: No New Discharge Prescriptions: No Action Omeprazole [PriLOSEC] 20 mg PO BID Aspirin [Dodge Aspirin EC] 81 mg PO DAILY Vit No.180/Iron/Folic [ Plus Tablet] 1 tab PO DAILY valACYclovir HCL [Valtrex] 500 mg PO BID Discharge Medication List Omeprazole [PriLOSEC] 20 mg PO BID 02/26/16 [History] Aspirin [Dodge Aspirin EC] 81 mg PO DAILY 08/07/21 [History] Vit No.180/Iron/Folic [ Plus Tablet] 1 tab PO DAILY 08/07/21 [History] valACYclovir HCL [Valtrex] 500 mg PO BID 10/04/21 [History] Follow up Appointment(s)/Referral(s): Darcy Abad MD [STAFF PHYSICIAN] - 2 Weeks Discharge Disposition: HOME SELF-CARE
[2021-10-08] MEDS: IBUPROFEN 600 MG TAB PO SCH (08:10)
[2021-10-08 08:32] VITALS: BP 110/75; PULSE 88; TEMP 98.2
== END 2021-10-08 13:50 | disposition home or self-care (01) | DRG 787 ==
LOC: FBPOP 16:04 → 4FBP 16:52
PROVIDERS: ADMIT Obstetrics & Gynecology; ATTEND Obstetrics & Gynecology
PROC: 10D00Z1 Extraction of Products of Conception, Low, Open Approach (ICD-10-PCS; principal; 2021-10-06 22:31)
PROC: 4A0HXCZ Measurement of Products of Conception, Cardiac Rate, External Approach (ICD-10-PCS; principal; 2021-10-06 22:31)
DX: O32.4XX0 Maternal care for high head at term, not applicable or unspecified (principal); O99.354 Diseases of the nervous system complicating childbirth; O98.813 Other maternal infectious and parasitic diseases complicating pregnancy, third trimester; O42.92 Full-term premature rupture of membranes, unspecified as to length of time between rupture and onset of labor; O99.73 Diseases of the skin and subcutaneous tissue complicating the puerperium; D25.2 Subserosal leiomyoma of uterus; O34.13 Maternal care for benign tumor of corpus uteri, third trimester; O77.0 Labor and delivery complicated by meconium in amniotic fluid; L29.9 Pruritus, unspecified; O99.62 Diseases of the digestive system complicating childbirth; G43.909 Migraine, unspecified, not intractable, without status migrainosus; K21.9 Gastro-esophageal reflux disease without esophagitis; Z37.0 Single live birth; Z3A.39 39 weeks gestation of pregnancy; Z79.82 Long term (current) use of aspirin; Z80.0 Family history of malignant neoplasm of digestive organs; Z83.3 Family history of diabetes mellitus; Z88.1 Allergy status to other antibiotic agents; Z88.8 Allergy status to other drugs, medicaments and biological substances; Z86.19 Personal history of other infectious and parasitic diseases
CPT/HCPCS: 82565; 83615; 84112; 84450; 84460; 84520; 84550; 85025; 86850; 86900; 86901; 99213

== ENCOUNTER 2022-07-10 07:53 | Day surgery (SDC) | payer BC, OTHER ==
[~2022-07-10 07:53] MED LIST changes: +LIDOCAINE 1% (10MG/ML) FOR IV START INTRADERMA PRN; -LIDOCAINE 1% 20 ML VIAL (10MG/ML) FOR IV START INTRADERMA PRN; +ONDANSETRON 4 MG/2 ML VIAL IVP PRN
[2022-07-10 08:28] VITALS: RESP 16; TEMP 97
[2022-07-10] MEDS ORDERED: LIDOCAINE 2% INJ 20 MG/ML (2 ML VIAL) ONE (09:01)
[2022-07-10] MEDS ORDERED: PROPOFOL 10 MG/ML 20 ML VIAL IV ONE (09:01)
--- NOTE | 2022-07-10 09:12 | P.PCN ---
Date of Procedure: 07/10/22 Procedure(s) Performed: BRIEF HISTORY: Patient is a 31-year-old, pleasant, white female scheduled for an upper endoscopy as a part of evaluation of GERD and Dunn's esophagus. She is presently on omeprazole 20 mg daily.. PROCEDURE PERFORMED: Esophagogastroduodenoscopy with biopsy. PREOPERATIVE DIAGNOSIS: GERD and Dunn's esophagus. IV sedation per anesthesia. PROCEDURE: After informed consent was obtained, the patient was brought into the endoscopy unit. IV sedation was administered by Anesthesia under continuous monitoring. Initially the Olympus GIF-140 video endoscope was inserted into the mouth. Esophagus intubated without any difficulty. It was gradually advanced into the stomach and duodenum and carefully examined. The bulb and the second part of the duodenum appeared normal. The scope at this time was withdrawn to the stomach, adequately insufflated with air, and upon careful examination, mucosa of the antrum, body, cardia and the fundus appeared normal. The scope was then withdrawn into the esophagus. Moderate size hiatal hernia noted. The GE junction was located at 33 cm from the incisors. Long segment of Dunn's esophagus extending from 25-30 cm from the incisors and multiple biopsies were done from this area. No mucosal abnormality seen. The proximal esophagus appeared normal. There were no erosions or ulcerations seen and the patient tolerated the procedure well. IMPRESSION: 1. 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 2. Small hiatal hernia. RECOMMENDATIONS: The findings of this examination were discussed with the patient as well as a family. She was advised to follow with the biopsy results. If the biopsy does not show any evidence of dysplasia, she can have a repeat upper endoscopy in 3 years..
[2022-07-10 09:24] VITALS: PULSE 86
[2022-07-10 09:43] VITALS: BP 109/80
== END 2022-07-10 09:56 | disposition home or self-care (01) ==
LOC: ORWHC2ENDO 07:53
PROVIDERS: ATTEND Internal Medicine Gastroenterology
DX: K22.70 Barrett's esophagus without dysplasia (principal); K31.A0 Gastric intestinal metaplasia, unspecified; K44.9 Diaphragmatic hernia without obstruction or gangrene; K21.9 Gastro-esophageal reflux disease without esophagitis; E28.2 Polycystic ovarian syndrome; Z88.0 Allergy status to penicillin; Z88.1 Allergy status to other antibiotic agents; Z98.890 Other specified postprocedural states
CPT/HCPCS: 81025; 88305; 43239; J2704; J2001

== ENCOUNTER 2023-05-06 10:11 | Inpatient (IN) | payer BC, OTHER ==
[2023-05-06] MEDS ORDERED: CITRIC ACID-SODIUM CITRATE 15 ML CUP PO ONE (10:14)
[2023-05-06] MEDS ORDERED: METHYLERGONOVINE 0.2 MG/ML 1 ML AMP IM PRN (10:14)
[2023-05-06] MEDS ORDERED: CARBOPROST TROMETHAMINE 250 MCG/ML 1 ML AMP IM PRN (10:14)
[2023-05-06] MEDS ORDERED: OXYTOCIN 10 UNIT/ML 1 ML VIAL IM PRN (10:14)
[2023-05-06] MEDS ORDERED: TRANEXAMIC 1,000 MG/100ML-NACL 1,000 MG in EMPTY BAG 1 BAG IV PRN (10:14)
[2023-05-06] MEDS ORDERED: miSOPROStoL 200 MCG TAB PO PRN (10:14)
[2023-05-06 10:43] LABS: Glucose,Whole Blood 119 mg/dL (70-110)
[2023-05-06 10:55] LABS: Anisocytosis Slight; Basophils % (A) 0 %; Eosinophils # (A) 0.2 k/uL (0-0.7); Eosinophils % (A) 1 %; HCT 35.4 % (34.0-46.0); HGB 11.8 gm/dL (11.4-16.0); Lymphocytes # (A) 1.4 k/uL (1.0-4.8); Lymphocytes % (A) 10 %; MCH 26.6 pg (25.0-35.0); MCHC 33.2 g/dL (31.0-37.0); Mean Platelet Volume 9.1; Monocytes # (A) 0.7 k/uL (0-1.0); Monocytes % (A) 5 %; Neutrophils % (A) 82 %; Platelet Count 249 k/uL (150-450); RBC 4.42 m/uL (3.80-5.40); RDW 16.4 % (11.5-15.5); WBC 13.5 k/uL (3.8-10.6)
[2023-05-06] MEDS: LACTATED RINGERS 1,000 ML IV SCH ×3 (11:32→18:19)
[2023-05-06] MEDS ORDERED: OXYTOCIN 30 UNITS/500 ML NS BAG IV ONE (12:05)
[2023-05-06] MEDS ORDERED: fentaNYL (PF) 50 MCG/ML 2 ML AMP ONE (12:05)
[2023-05-06] MEDS ORDERED: MORPHINE SULFATE (PF) 0.3 MG/0.3 ML SYR ONE (12:05)
[2023-05-06] MEDS ORDERED: ONDANSETRON 4 MG/2 ML VIAL ONE (12:05)
--- NOTE | 2023-05-06 12:56 | P.OP ---
Date of Procedure: 05/06/23 Preoperative Diagnosis: IUP at 37 and 6, GDM, A2, history of 1 desires repeat Postoperative Diagnosis: Same Procedure(s) Performed: Repeat section Anesthesia: spinal Surgeon: Yesenia Navarro Zoo Caretaker #1: Natalie Webster Estimated Blood Loss (ml): 560 IV fluids (ml): 1,000 Urine output (ml): 400 Pathology: other (Placenta) Condition: stable Disposition: observation Indications for Procedure: 32-year-old at 37-6/7 weeks with prior history of primary secondary to arrest of descent, patient desires repeat. Operative Findings: Normal uterus tubes and ovaries were appreciated viable male infant noted in vertex presentation high in the uterus delivered at 1225, weight of 7 lbs. 6 oz., Apgars of 9 and 10 at one and 5 minutes respectively. Ovaries appeared polycystic in nature. Description of Procedure: The patient was prepped and draped in the usual fashion after spinal anesthesia was administered by the anesthesia department. A Pfannenstiel incision was made and extended of the abdominal cavity without difficulty. The bladder peritoneum was noted to be far away from the operating field. A 2 cm incision was made in the transverse plane of the lower uterine segment to enter the uterus at which time clear fluid was noted. The incision was extended in both directions bluntly. The head was encountered within the field and delivered up and through the incision where the nose and mouth were thoroughly suctioned. Remainder of the infant was delivered onto the surgical field where the cord was doubly clamped, cut, and the infant was passed for resuscitative measures with weight and Apgars as noted above. The placenta was delivered manually, intact, and was grossly normal with a grossly normal three-vessel cord. The uterus was exteriorized and the interior cavity of the uterus swept of any remaining placental and membranous fragments with a laparotomy sponge. The margins of the incision were grasped with Rios clamps and the incision closed in 2 layers. First layer was a running locking layer of 0 Vicryl from margin to margin followed by a second layer of imbricating 0 Vicryl from margin to margin. Any small points of bleeding were then made hemostatic with the Bovie. Once hemostasis was achieved, the posterior cul-de-sac was suctioned with a guard and the uterine and ovarian findings are as noted above. The uterus was replaced within the abdominal cavity and the gutters swept of any remaining blood fluid or clot. The incision was again reexamined and hemostasis was noted to be excellent. Any small point of bleeding were made hemostatic with the Bovie. Once hemostasis was achieved the parietal peritoneum was loosely reapproximated. The layer of muscles were examined and made hemostatic with the Bovie. Attention was then turned to the fascia which was closed with 2 running stitches of 0 Vicryl proceeding from the lateral margins to the midp oint. The subcutaneous tissues were irrigated, made hemostatic with the Bovie, and reapproximated with a running stitch of 30 Vicryl. The skin was reapproximated with 4-0 Vicryl. Estimated blood loss for the case was approximately 560 mL. All sponge instrument and needle counts are correct. There were no complications. The patient tolerated the procedure well and proceeded to the recovery room in stable condition. Both mother and are resting comfortably in recovery.
--- NOTE | 2023-05-06 12:57 | P.HPOB ---
History of Present Illness H&P Date: 05/06/23 Chief Complaint: At 37-6/7 weeks, gestational diabetes A2 poorly controlled 32-year-old G to be 1 at 37-6/7 weeks that presents for repeat section. Patient has been receiving routine care was complicated by diagnosis of diabetes mellitus, she has been on insulin with maternal medicine, blood sugars have been poorly controlled. Insulin doses have been steadily increased without achieving blood sugar goals. Maternal medicine recommendation for delivery 37-38 weeks, given for the control blood sugars Patient notes good movement and has had reassuring testing throughout the . Last estimated weight, 60%ile Maternal blood type of O+, rubella status immune, hepatitis B surface antigen negative, HIV negative, RPR nonreactive, group beta strep culture is negative. Review of Systems Constitutional: Denies chills, Denies fatigue, Denies fever Ears, nose, mouth and throat: Denies headache Cardiovascular: Reports leg edema Respiratory: Denies dyspnea Gastrointestinal: Denies constipation, Denies diarrhea, Denies nausea, Denies vomiting Genitourinary: Reports Past Medical History Past Medical History: Diabetes Mellitus, GERD/Reflux Additional Past Medical History / Comment(s): PCOS. GDM, Dunn's esophagus History of Any Multi-Drug Resistant Organisms: None Reported Date of last positivie culture/infection: 02/26/16 MDRO Source:: abdomen Past Surgical History: No Surgical Hx Reported, Section Additional Past Surgical History / Comment(s): OPEN SURGERY FOR dermoid cyst on ovary removed. EGD Past Anesthesia/Blood Transfusion Reactions: Motion Sickness, Postoperative Nausea & Vomiting (PONV) Past Psychological History: No Psychological Hx Reported Smoking Status: Never smoker Past Alcohol Use History: None Reported Past Drug Use History: None Reported - Past Family History Father Family Medical History: Cancer Additional Family Medical History / Comment(s): July 2015 of Esophageal cancer Mother Family Medical History: Diabetes Mellitus Medications and Allergies Home Medications Medication Instructions Recorded Confirmed Type Omeprazole [PriLOSEC] 20 mg PO BID 02/26/16 05/06/23 History Aspirin 81 mg PO DAILY 04/29/23 05/06/23 History INSULIN LISPRO (HumaLOG) [humaLOG] 8 units SQ AC-BRKFST 04/29/23 05/06/23 History INSULIN LISPRO (HumaLOG) [humaLOG] 14 units SQ AC-SUPPER 04/29/23 05/06/23 History Insulin Regular [humuLIN R] 38 units SQ DAILY 04/29/23 05/06/23 History Insulin Regular [humuLIN R] 62 units SQ HS 04/29/23 05/06/23 History Unk Vitamin 1 tab PO DAILY 04/29/23 05/06/23 History Allergies Allergy/AdvReac Type Severity Reaction Status Date / Time amoxicillin Allergy Mild Rash/Hives Verified 05/06/23 10:34 nitrofurantoin Allergy Rash/Hives Verified 05/06/23 10:34 [From Macrobid] Exam Osteopathic Statement: *. No significant issues noted on an osteopathic structural exam other than those noted in the History and Physical/Consult. 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 Cervical exam is deferred. Results Result Diagrams: 05/06/23 10:45 Abnormal Lab Results - Last 24 Hours (Table) 05/06/23 05/06/23 Range/Units 10:40 10:45 WBC 13.5 H (3.8-10.6) k/uL RDW 16.4 H (11.5-15.5) % Neutrophils # 11.0 H (1.3-7.7) k/uL POC Glucose (mg/dL) 119 H (70-110) mg/dL Assessment and Plan (1) with 37 or more completed weeks gestation Current Visit: Yes Status: Acute Code(s): [id number] - SNOMED Code(s): 54634634 (2) GDM, class A2 Narrative/Plan: Poorly controlled with insulin, per maternal- medicine delivery 37-38 weeks. Current Visit: Yes Status: Acute Code(s): O24.419 - GESTATIONAL DIABETES MELLITUS IN , UNSP CONTROL SNOMED Code(s): 47475843 (3) H/O section Narrative/Plan: Desires repeat Current Visit: Yes Status: Acute Code(s): Z98.891 - HISTORY OF UTERINE SCAR FROM PREVIOUS SURGERY SNOMED Code(s): 167400132 Plan: 32-year-old at 37-6/7 weeks presents for repeat section. Patient has known diabetes mellitus with poorly controlled blood sugars on insulin. Patient is seen maternal- medicine for multiple visits with attempts to control blood sugars within goal range. Patient has had normal testing. is discussed with patient risks are reviewed. Patient st ates understanding and wishes to proceed.
[2023-05-06] MEDS ORDERED: diphenhydrAMINE 50 MG CAP PO PRN (13:03)
[2023-05-06] MEDS ORDERED: diphenhydrAMINE 25 MG CAP PO PRN (13:03)
[2023-05-06] MEDS ORDERED: SIMETHICONE 80 MG CHEWABLE PO PRN (13:03)
[2023-05-06] MEDS ORDERED: diphenhydrAMINE 50 MG/ML 1 ML VIAL IVP PRN ×2 (13:03)
[2023-05-06] MEDS ORDERED: METOCLOPRAMIDE 5 MG/ML 2 ML VIAL IVP PRN (13:03)
[2023-05-06] MEDS ORDERED: ONDANSETRON 4 MG/2 ML VIAL IVP PRN (13:03)
[2023-05-06] MEDS ORDERED: ZOLPIDEM 5 MG TAB PO PRN (13:03)
[2023-05-06] MEDS ORDERED: OXYTOCIN 30 UNITS/500 ML NS 30 UNIT in SALINE 1 500ML.BAG IV SCH (13:03)
[2023-05-06] MEDS ORDERED: NALOXONE 0.4 MG/ML 1 ML VIAL IV PRN ×2 (13:03→13:17)
--- NOTE | 2023-05-06 13:19 | P.ANPRN ---
Procedure Note - Anesthesia - Epidural/Spinal Spinal Date of Procedure: 05/06/23 Procedure Start Time: 12:05 Procedure Stop Time: 12:10 Location of Patient: OB Indication: Acute Post-Operative Pain, Requested by Surgeon Sedation Type: Awake Preparation: Sterile Dressing Position: Sitting Catheter: None Needle Guage: 22 Injectate: 300 g of preservative free morphine along with 1.2 mL of 0.75% bupivacaine Blood Aspirated: No Pain Paresthesia on Injection Noted: No Events: Uneventful and Well Tolerated
[2023-05-06] MEDS: ACETAMINOPHEN IV (For NPO) 1,000 MG in EMPTY BAG 1 BAG IVPB SCH (17:20)
[2023-05-06] MEDS: ACETAMINOPHEN TAB 500 MG TAB PO SCH ×2 (17:24→20:55)
[2023-05-06] MEDS: IBUPROFEN IV 800 MG in SODIUM CHLORIDE 0.9% 250 ML IV SCH ×2 (18:14→23:32)
[2023-05-06] MEDS: IBUPROFEN 600 MG TAB PO SCH (18:19)
[2023-05-06] MEDS: SENNOSIDES-DOCUSATE SODIUM 1 EACH TAB PO SCH (20:55)
[2023-05-07] MEDS: IBUPROFEN 600 MG TAB PO SCH ×4 (00:18→18:14)
[2023-05-07] MEDS: LACTATED RINGERS 1,000 ML IV SCH ×2 (02:00→02:19)
[2023-05-07] MEDS: ACETAMINOPHEN IV (For NPO) 1,000 MG in EMPTY BAG 1 BAG IVPB SCH (02:19)
[2023-05-07] MEDS: ACETAMINOPHEN TAB 500 MG TAB PO SCH ×4 (04:22→21:00)
[2023-05-07] MEDS: IBUPROFEN IV 800 MG in SODIUM CHLORIDE 0.9% 250 ML IV SCH ×2 (06:13→12:57)
--- NOTE | 2023-05-07 06:20 | P.PN ---
Progress Note - Text 05/07/23 550am 32-year-old female status post with spinal Duramorph. Patient was seen and evaluated for postop pain control, she has a VAS of 2 with no complains of nausea vomiting or pruritus
[2023-05-07 07:39] LABS: Anisocytosis Slight; Basophils % (A) 0 %; Eosinophils # (A) 0.1 k/uL (0-0.7); Eosinophils % (A) 1 %; HCT 28.3 % (34.0-46.0); Lymphocytes # (A) 1.7 k/uL (1.0-4.8); Lymphocytes % (A) 12 %; MCH 27.4 pg (25.0-35.0); MCHC 33.8 g/dL (31.0-37.0); MCV 81.1 fL (80.0-100.0); Mean Platelet Volume 8.5; Monocytes # (A) 0.6 k/uL (0-1.0); Monocytes % (A) 4 %; Neutrophils # (A) 11.6 k/uL (1.3-7.7); Neutrophils % (A) 82 %; Platelet Count 214 k/uL (150-450); RBC 3.49 m/uL (3.80-5.40); RDW 16.5 % (11.5-15.5); WBC 14.1 k/uL (3.8-10.6)
[2023-05-07 07:41] LABS: HGB 9.6 gm/dL (11.4-16.0)
[2023-05-07] MEDS: PRENATAL VIT-IRON-FOLIC ACID 1 EACH TABLET PO SCH (09:00)
[2023-05-07] MEDS: SENNOSIDES-DOCUSATE SODIUM 1 EACH TAB PO SCH ×2 (09:00→21:01)
--- NOTE | 2023-05-07 10:00 | P.PNOBGPC ---
Subjective - Subjective Principal diagnosis: s/p repeat section Interval history: The patient is doing well this morning and had no acute events overnight. She has no complaints this morning. She reports minimal lochia, voiding without difficulty, ambulating, and eating/drinking without nausea or vomiting. She has yet to pass flatus. She is her infant without difficulty. She denies chest pain, shortness of breathing, fevers, or chills overnight. She denies pain or swelling in the legs. Patient reports: Reports appetite normal, Reports voiding normally, Reports pain well controlled, Reports ambulating normally : doing well, nursing well Objective - Vital Signs Latest vital signs: Vital Signs Temp Pulse Resp BP Pulse Ox 05/07/23 09:05 97 05/07/23 08:00 98.4 F 79 18 93/46 97 05/07/23 04:00 98.1 F 90 18 99/65 98 05/07/23 00:00 98.0 F 77 18 105/67 98 05/06/23 20:00 98.5 F 52 L 18 111/75 98 05/06/23 17:29 98 05/06/23 15:04 96.7 F L 88 18 98/55 97 05/06/23 14:17 16 98 05/06/23 14:04 84 16 102/59 98 05/06/23 13:49 87 16 103/51 98 05/06/23 13:34 83 16 109/55 98 05/06/23 13:19 93 16 116/58 98 05/06/23 13:17 16 98 05/06/23 13:04 98.4 F 102 H 16 117/59 98 05/06/23 10:23 98.4 F 104 H 16 121/72 Intake and Output 05/06/23 05/07/23 05/07/23 22:59 06:59 14:59 Intake Total 50 Output Total 200 300 Balance -150 -300 Intake: Oral 50 Output: Urine 200 300 Uretheral (Milligan) 200 Other: Voiding Method Toilet # Voids 1 - Exam Extremities: Present: normal Abdomen: Present: normal appearance, soft Incision: Present: normal, dry, intact Uterus: Present: normal, firm - Labs Labs: Abnormal Lab Results - Last 24 Hours (Table) 05/06/23 05/06/23 05/06/23 Range/Units 10:40 10:45 10:45 WBC 13.5 H (3.8-10.6) k/uL RBC (3.80-5.40) m/uL Hgb (11.4-16.0) gm/dL Hct (34.0-46.0) % RDW 16.4 H (11.5-15.5) % Neutrophils # 11.0 H (1.3-7.7) k/uL POC Glucose (mg/dL) 119 H (70-110) mg/dL Hemoglobin A1c 6.4 H (<=6.0) % 05/07/23 Range/Units 07:09 WBC 14.1 H (3.8-10.6) k/uL RBC 3.49 L (3.80-5.40) m/uL Hgb 9.6 L D (11.4-16.0) gm/dL Hct 28.3 L (34.0-46.0) % RDW 16.5 H (11.5-15.5) % Neutrophils # 11.6 H (1.3-7.7) k/uL POC Glucose (mg/dL) (70-110) mg/dL Hemoglobin A1c (<=6.0) % Assessment and Plan Assessment: 32 year old now POD#1 s/p repeat section Plan: 1. Postoperative care. Patient meeting all milestones appropriately, continue to monitor. 2. A2GDM. Will need 2 hour GTT at 6 weeks . 3. Viable male . Consented for circumcision this AM and circumcision performed. Dispo: anticipate discharge home tomorrow.
[2023-05-08] MEDS: IBUPROFEN 600 MG TAB PO SCH ×3 (00:25→12:21)
[2023-05-08 01:45] VITALS: TEMP 98.1
[2023-05-08] MEDS: ACETAMINOPHEN TAB 500 MG TAB PO SCH ×2 (06:35→07:54)
[2023-05-08] MEDS: SENNOSIDES-DOCUSATE SODIUM 1 EACH TAB PO SCH (07:49)
[2023-05-08] MEDS: PRENATAL VIT-IRON-FOLIC ACID 1 EACH TABLET PO SCH (07:53)
[2023-05-08 10:19] VITALS: BP 106/60; PULSE 85; RESP 20
--- NOTE | 2023-05-08 10:42 | P.DS ---
Providers Date of admission: 05/06/23 10:11 Expected date of discharge: 05/08/23 Attending physician: Yesenia Navarro Primary care physician: Stated None Hospital Course: Ms. Valadez is a 32 year old now POD#2 s/p scheduled repeat section. The was complicated by poorly controlled A2 gestational diabetes on insulin. The section was uncomplicated and the patient has done well in her recovery, meeting all post-operative milestones. The patient is doing well this morning and had no acute events overnight. She has no complaints this morning. She reports minimal lochia, passing flatus, voiding without difficulty, ambulating, and eating/drinking without nausea or vomiting. Infant doing well at bedside, s/p circumcision. She denies chest pain, shortness of breathing, fevers, or chills overnight. She denies pain or swelling in the legs. Postoperative restrictions are reviewed with the patient including pelvic rest for 6 weeks, no lifting heavier than 15 pounds for 6 weeks. The patient is encouraged to call the office if she experiences any heavy bleeding, foul- smelling discharge, breast complaints, or any if she has any other concerns. She will follow up in the office with Dr. Navarro in 2 weeks for postoperative exam. She plans to use over the counter Motrin and Tylenol for analgesia at home. All questions are answered. Assessment: 32 year old now POD#2 s/p scheduled repeat section Patient Condition at Discharge: Good Plan - Discharge Summary Discharge Rx Participant: No New Discharge Prescriptions: No Action Omeprazole [PriLOSEC] 20 mg PO BID Unk Vitamin 1 tab PO DAILY INSULIN LISPRO (HumaLOG) [humaLOG] 8 units SQ AC-BRKFST Insulin Regular [humuLIN R] 38 units SQ DAILY Aspirin 81 mg PO DAILY Insulin Regular [humuLIN R] 62 units SQ HS INSULIN LISPRO (HumaLOG) [humaLOG] 14 units SQ AC-SUPPER Discharge Medication List Omeprazole [PriLOSEC] 20 mg PO BID 02/26/16 [History] Aspirin 81 mg PO DAILY 04/29/23 [History] INSULIN LISPRO (HumaLOG) [humaLOG] 8 units SQ AC-BRKFST 04/29/23 [History] INSULIN LISPRO (HumaLOG) [humaLOG] 14 units SQ AC-SUPPER 04/29/23 [History] Insulin Regular [humuLIN R] 38 units SQ DAILY 04/29/23 [History] Insulin Regular [humuLIN R] 62 units SQ HS 04/29/23 [History] Unk Vitamin 1 tab PO DAILY 04/29/23 [History] Follow up Appointment(s)/Referral(s): Yesenia Navarro, [Doctor of Osteopathic Medicine] - 2 Weeks Activity/Diet/Wound Care/Special Instructions: Instructions 1. Do not begin any exercise program for 3 weeks. 2. Do not resume sexual relations for 6 weeks or longer if uncomfortable. 3. You may take tub baths or showers at any time. 4. You may use tampons if desired after 6 weeks. 5. Keep any areas repaired with stitches clean and dry. 6. If you are not nursing, wear a good fitting, supportive bra during the day and limit fluid intake for at least 1 week to prevent breast engorgement. 7. Call the office, , within the next week to make appointment for your 6 week checkup if it has not already been made. 8. Report any of the following occurrences to the doctor promptly: a. Heavy, excessive bleeding b. Chills, fever c. Burning or frequency of urination d. Pain or redness and breasts if nursing e. Increasing pain or swelling of vulva (stitches). In addition to the above instructions, the following additional should be followed: 1. No heavy lifting or straining (exercising) until after 6 week checkup. 2. Keep abdominal incision clean and dry: You may wear a dressing if more comfortable. 3. Make office appointment for 2 weeks after delivery date. Discharge Disposition: HOME SELF-CARE
== END 2023-05-08 13:00 | disposition home or self-care (01) | DRG 788 ==
LOC: 4FBP 10:11
PROVIDERS: ADMIT Obstetrics & Gynecology Obstetrics; ATTEND Obstetrics & Gynecology Obstetrics
PROC: 10D00Z1 Extraction of Products of Conception, Low, Open Approach (ICD-10-PCS; principal; 2023-05-06 12:00)
DX: O24.424 Gestational diabetes mellitus in childbirth, insulin controlled (principal); K22.70 Barrett's esophagus without dysplasia; O99.62 Diseases of the digestive system complicating childbirth; Z3A.37 37 weeks gestation of pregnancy; Z37.0 Single live birth; Z79.82 Long term (current) use of aspirin; O34.211 Maternal care for low transverse scar from previous cesarean delivery
CPT/HCPCS: 83036; 85025; 86850; 86900; 86901

== ENCOUNTER 2023-07-22 05:55 | Observation (INO) | payer BC ==
--- NOTE | 2023-07-22 06:18 | ED ---
Abdominal Pain HPI - General Chief Complaint: Abdominal Pain Stated Complaint: Gallbladder pain Time Seen by Provider: 07/22/23 06:17 Source: patient, RN notes reviewed Mode of arrival: ambulatory Limitations: no limitations - History of Present Illness Initial Comments: Patient is a 32-year-old female presenting to the ER with a chief complaint of right upper quadrant abdominal pain. She states this been going on for a few weeks. She was seen by PCP and has an ultrasound scheduled. She recently underwent a section in April. She states her pain is usually worse at night hours after she eats food. She states last night she started to have nausea and multiple episodes of vomiting. Reports chills during these episodes. Reports her appetite has been normal. Denies any headache, cough, congestion, fever, chest pain, shortness of breath or peripheral edema. - Related Data Home Medications Medication Instructions Recorded Confirmed Omeprazole [PriLOSEC] 20 mg PO BID 02/26/16 05/06/23 Aspirin 81 mg PO DAILY 04/29/23 05/06/23 INSULIN LISPRO (HumaLOG) [humaLOG] 8 units SQ AC-BRKFST 04/29/23 05/06/23 INSULIN LISPRO (HumaLOG) [humaLOG] 14 units SQ AC-SUPPER 04/29/23 05/06/23 Insulin Regular [humuLIN R] 38 units SQ DAILY 04/29/23 05/06/23 Insulin Regular [humuLIN R] 62 units SQ HS 04/29/23 05/06/23 Unk Vitamin 1 tab PO DAILY 04/29/23 05/06/23 Allergies Allergy/AdvReac Type Severity Reaction Status Date / Time amoxicillin Allergy Mild Rash/Hives Verified 07/22/23 06:04 nitrofurantoin Allergy Rash/Hives Verified 07/22/23 06:04 [From Macrobid] Review of Systems ROS Statement: Those systems with pertinent positive or pertinent negative responses have been documented in the HPI. ROS Other: All systems not noted in ROS Statement are negative. Past Medical History Past Medical History: GERD/Reflux Additional Past Medical History / Comment(s): PCOS. History of Any Multi-Drug Resistant Organisms: None Reported Date of last positivie culture/infection: 02/26/16 MDRO Source:: abdomen Past Surgical History: No Surgical Hx Reported, Section Additional Past Surgical History / Comment(s): OPEN SURGERY FOR dermoid cyst on ovary removed. Past Anesthesia/Blood Transfusion Reactions: Motion Sickness, Postoperative Nausea & Vomiting (PONV) Past Psychological History: No Psychological Hx Reported Smoking Status: Never smoker Past Alcohol Use History: Occasional Past Drug Use History: None Reported - Past Family History Father Family Medical History: Cancer Additional Family Medical History / Comment(s): July 2015 of Esophageal cancer Mother Family Medical History: Diabetes Mellitus General Exam Limitations: no limitations General appearance: alert, in no apparent distress Head exam: Present: atraumatic, normocephalic, normal inspection Eye exam: Present: normal appearance, PERRL, EOMI. Absent: scleral icterus, conjunctival injection, periorbital swelling ENT exam: Present: normal exam, mucous membranes moist Respiratory exam: Present: normal lung sounds bilaterally. Absent: respiratory distress, wheezes, rales, rhonchi, stridor Cardiovascular Exam: Present: regular rate, normal rhythm, normal heart sounds. Absent: systolic murmur, diastolic murmur, rubs, gallop, clicks GI/Abdominal exam: Present: soft, tenderness (Right upper quadrant/epigastric), normal bowel sounds Neurological exam: Present: alert, oriented X3, CN II-XII intact Psychiatric exam: Present: normal affect, normal mood Skin exam: Present: warm, dry, intact, normal color. Absent: rash Course Vital Signs 07/22/23 07/22/23 06:02 07:04 Temperature 98.2 F Pulse Rate 90 70 Respiratory 18 16 Rate Blood Pressure 124/68 103/72 O2 Sat by Pulse 98 97 Oximetry - Reevaluation(s) Reevaluation #1: 07/22/23 08:[address] Duncan who accepts medical admission. Medical Decision Making - Medical Decision Making Was pt. sent in by a medical professional or institution (, PA, SUPERVISOR FRAME ASSEMBLY, urgent care, hospital, or fdc...) When possible be specific @ -No Did you speak to anyone other than the patient for history (EMS, parent, family, police, friend...)? What history was obtained from this source @ -No Did you review nursing and triage notes (agree or disagree)? Why? @ -I reviewed and agree with nursing and triage notes Were old charts reviewed (outside hosp., previous admission, EMS record, old EKG, old radiological studies, urgent care reports/EKG's, fdc records)? Report findings @ -No old charts were reviewed Differential Diagnosis (chest pain, altered mental status, abdominal pain women, abdominal pain men, vaginal bleeding, weakness, fever, dyspnea, syncope, headache, dizziness, GI bleed, back pain, seizure, CVA, palpatations, mental health, musculoskeletal)? @ -Differential Abdominal Pain Women: Appendicitis, Cholecystitis, d iverticulosis, ischemic bowel, pancreatitis, hepatitis, UTI, gastroenteritis, AAA, incarcerated hernia, bowel obstruction, constipation, inflammatory bowel, hepatitis, peptic ulcer disease, splenic infarction, perforated viscus, vulvitis, ovarian torsion, PID, kidney stone, placenta abruption, this is not meant to be an all-inclusive list EKG interpreted by me (3pts min.). @ -None X-rays interpreted by me (1pt min.). @ -None done CT interpreted by me (1pt min.). @ -None done U/S interpreted by me (1pt. min.). @ -Gallbladder ultrasound significant for acute cholecystitis with cholelithiasis What testing was considered but not performed or refused? (CT, X-rays, U/S, labs)? Why? @ -None What meds were considered but not given or refused? Why? @ -None Did you discuss the management of the patient with other professionals (professionals i.e. , PA, SUPERVISOR FRAME ASSEMBLY, lab, RT, psych nurse, social science analyst, utility arborist, teacher, adult probation officer, leather case finisher)? Give summary @ -Yes, case discussed with Dr. Duncan who accepts surgical admission. Was smoking cessation discussed for >3mins.? @ -No Was critical care preformed (if so, how long)? @ -No Were there social determinants of health that impacted care today? How? (Homelessness, low income, unemployed, alcoholism, drug addiction, transportation, low edu. Level, literacy, decrease access to med. care, [facility], rehab)? @ -No Was there de-escalation of care discussed even if they declined (Discuss DNR or withdrawal of care, Hospice)? DNR status @ -No What co-morbidities impacted this encounter? (DM, HTN, Smoking, COPD, CAD, Cancer, CVA, ARF, Chemo, Hep., AIDS, mental health diagnosis, sleep apnea, morbid obesity)? @ -None Was patient admitted / discharged? Hospital course, mention meds given and route, prescriptions, significant lab abnormalities, going to OR and other pertinent info. @ -Admitted. Patient is a 32-year-old female presenting to the ER with chief complaint of right upper quadrant abdominal pain. History and physical exam completed. Vitals stable. Patient no signs of acute distress and nontoxic- appearing. Positive Kim sign. Normal bowel sounds. Labs obtained significant for white blood cell count 10.7, chloride 110, carbon dioxide 18. Gallbladder ultrasound significant for acute cholecystitis with cholelithiasis. Admission considered for surgical consultation. Case discussed with Dr. Duncan who accept surgical admission. Patient NPO. Results discussed with patient, all questions answered. Patient agreeable for admission. Patient started on Flagyl and Rocephin as patient has an amoxicillin allergy. Symptomatic control in the ER. Patient admitted in stable condition. Case discussed with ED attending, Dr. Hawley. Undiagnosed new problem with uncertain prognosis? @ -No Drug Therapy requiring intensive monitoring for toxicity (Heparin, Nitro, Insulin, Cardizem)? @ -No Were any procedures done? @ -No Diagnosis/symptom? @ -Cholelithiasis/cholecystitis Acute, or Chronic, or Acute on Chronic? @ -Acute Uncomplicated (without systemic symptoms) or Complicated (systemic symptoms)? @ -Complicated Side effects of treatment? @ -No Exacerbation, Progression, or Severe Exacerbation? @ -No Poses a threat to life or bodily function? How? (Chest pain, [place], [place], pneumonia, PE, COPD, DKA, ARF, appy, cholecystitis, CVA, Diverticulitis, Homicidal, Suicidal, threat to staff... and all critical care pts) @ -Yes, cholecystitis can lead to sepsis. - Lab Data Result diagrams: 07/22/23 06:18 07/22/23 06:18 Lab Results 07/22/23 07/22/23 07/22/23 Range/Units 06:18 06:18 06:18 WBC 10.7 H (3.8-10.6) k/uL RBC 4.71 (3.80-5.40) m/uL Hgb 12.7 (11.4-16.0) gm/dL Hct 38.6 (34.0-46.0) % MCV 81.8 (80.0-100.0) fL MCH 26.9 (25.0-35.0) pg MCHC 32.8 (31.0-37.0) g/dL RDW 15.0 (11.5-15.5) % Plt Count 329 (150-450) k/uL MPV 7.8 Neutrophils % 79 % Lymphocytes % 14 % Monocytes % 5 % Eosinophils % 1 % Basophils % 0 % Neutrophils # 8.4 H (1.3-7.7) k/uL Lymphocytes # 1.4 (1.0-4.8) k/uL Monocytes # 0.5 (0-1.0) k/uL Eosinophils # 0.2 (0-0.7) k/uL Basophils # 0.0 (0-0.2) k/uL Sodium 142 (137-145) mmol/L Potassium 4.2 (3.5-5.1) mmol/L Chloride 110 H (98-107) mmol/L Carbon Dioxide 18 L (22-30) mmol/L Anion Gap 14 mmol/L BUN 24 H (7-17) mg/dL Creatinine 0.66 (0.52-1.04) mg/dL Est GFR (CKD-EPI)AfAm >90 (>60 ml/min/1.73 sqM) Est GFR (CKD-EPI)NonAf >90 (>60 ml/min/1.73 sqM) Glucose 130 H (74-99) mg/dL Plasma Lactic Acid Severiano 1.7 (0.7-2.0) mmol/L Calcium 9.7 (8.4-10.2) mg/dL Total Bilirubin 0.4 (0.2-1.3) mg/dL AST 25 (14-36) U/L ALT 20 (4-34) U/L Alkaline Phosphatase 85 (38-126) U/L Total Protein 7.4 (6.3-8.2) g/dL Albumin 4.3 (3.5-5.0) g/dL Amylase 62 (30-110) U/L Lipase 87 (23-300) U/L - Radiology Data Radiology results: report reviewed, image reviewed Disposition Clinical Impression: Cholecystitis, Cholelithiasis Disposition: ADMITTED IP TO THIS [facility] Condition: Stable Referrals: Vanessa Scanlon MD [Primary Care Provider] - 1-2 days Time of Disposition: 08:10
[2023-07-22] MEDS: SODIUM CHLORIDE 0.9% 1,000 ML IV STA (06:25)
[2023-07-22 06:30] LABS: Basophils % (A) 0 %; Eosinophils # (A) 0.2 k/uL (0-0.7); Eosinophils % (A) 1 %; HCT 38.6 % (34.0-46.0); HGB 12.7 gm/dL (11.4-16.0); Lymphocytes # (A) 1.4 k/uL (1.0-4.8); Lymphocytes % (A) 14 %; MCH 26.9 pg (25.0-35.0); MCHC 32.8 g/dL (31.0-37.0); MCV 81.8 fL (80.0-100.0); Mean Platelet Volume 7.8; Monocytes # (A) 0.5 k/uL (0-1.0); Monocytes % (A) 5 %; Neutrophils # (A) 8.4 k/uL (1.3-7.7); Neutrophils % (A) 79 %; Platelet Count 329 k/uL (150-450); RBC 4.71 m/uL (3.80-5.40); WBC 10.7 k/uL (3.8-10.6)
[2023-07-22 07:08] LABS: ALT 20 U/L (4-34); AST 25 U/L (14-36); African American GFR (CKD) >90 (>60 ml/min/1.73 sqM); Albumin 4.3 g/dL (3.5-5.0); Alkaline Phosphatase 85 U/L (38-126); Amylase 62 U/L (30-110); Anion Gap 14 mmol/L; Blood Urea Nitrogen 24 mg/dL (7-17); Calcium 9.7 mg/dL (8.4-10.2); Carbon Dioxide 18 mmol/L (22-30); Chloride 110 mmol/L (98-107); Glucose 130 mg/dL (74-99); Lipase 87 U/L (23-300); Non-African American GFR(CKD) >90 (>60 ml/min/1.73 sqM); Potassium 4.2 mmol/L (3.5-5.1); Sodium 142 mmol/L (137-145); Total Bilirubin 0.4 mg/dL (0.2-1.3); Total Protein 7.4 g/dL (6.3-8.2)
--- NOTE | 2023-07-22 07:41 | US ---
EXAMINATION TYPE: US gallbladder DATE OF EXAM: 07/22/2023 COMPARISON: NONE CLINICAL INDICATION: Female, 32 years old with history of RUQ pain; Intermittent RUQ pain for 1-2 mon ths. Worse today. Vomiting TECHNIQUE: Multiple sonographic images of the right upper quadrant are obtained. FINDINGS: EXAM MEASUREMENTS: Liver Length: 18.5 cm Gallbladder Wall: 0.3 cm CBD: 0.4 cm Right Kidney: 12.6 x 4.4 x 4.7 cm Pancreas: Obscured by bowel gas Liver: wnl Gallbladder: multiple stones. Some gallbladder wall thickening wall echo shadow complex may be prese nt. Evidence for sonographic Kim's sign: no CBD: limited evaluation, appears wnl Right Kidney: no evidence of hydronephrosis IMPRESSION: 1. Findings suggestive for acute cholecystitis with cholelithiasis.
[2023-07-22] MEDS ORDERED: NALOXONE 0.4 MG/ML 1 ML VIAL IV PRN (08:00)
[2023-07-22 08:15] LABS: Amorphous Sediment,Urine Rare /hpf; Appearance,Urine Clear (Clear); Bilirubin,Urine Negative (Negative); Blood,Urine Negative (Negative); Color,Urine Colorless; Glucose,Urine (UA) Negative (Negative); Ketones,Urine Negative (Negative); Leukocyte Esterase,Urine Small (Negative); Nitrite,Urine Negative (Negative); PH, Urine 5.5 (5.0-8.0); Protein,Urine Negative (Negative); Specific Gravity,Urine 1.025 (1.001-1.035); Urobilinogen,Urine <2.0 mg/dL (<2.0)
[2023-07-22] MEDS: ONDANSETRON 4 MG/2 ML VIAL IVP STA (08:17)
[2023-07-22] MEDS: MORPHINE SULFATE 2 MG/ML SYRINGE IVP ONE (08:20)
[2023-07-22] MEDS: SODIUM CHLORIDE 0.9% 1,000 ML IV SCH (08:24)
[2023-07-22] MEDS: metroNIDAZOLE-NS PMX 500 MG in SALINE 1 100ML.BAG IVPB SCH (08:40)
[2023-07-22] MEDS: cefTRIAXone IN SWFI 1,000 MG/10 ML SYRINGE IVP SCH (08:41)
[2023-07-22] MEDS: PANTOPRAZOLE 40 MG/10 ML VIAL IVP STA (09:16)
--- NOTE | 2023-07-22 09:45 | P.GSHP ---
History of Present Illness H&P Date: 07/22/23 CHIEF COMPLAINT: Abdominal pain HISTORY OF PRESENT ILLNESS: The patient is a 32-year-old female who reports waking up from sleep this morning after having mac & cheese for dinner last night. She reports acute onset right upper quadrant abdominal pain radiating to the back. At the time of presentation, patient reports her pain is better. She does report having small children at home. PAST MEDICAL HISTORY: See list and reviewed PAST SURGICAL HISTORY: See list and reviewed MEDICATIONS: See list and reviewed ALLERGIES: See list and reviewed SOCIAL HISTORY: See list and reviewed FAMILY HISTORY: See list and reviewed REVIEW OF ORGAN SYSTEMS: CONSTITUTIONAL: No fevers or chills. No recent weight loss. EYES: Denies any trouble with vision. No glasses. HEENT: No difficulties with hearing. No nosebleeds. No difficulty swallowing. RESPIRATORY: Denies pneumonia. Denies any troubles with breathing or dyspnea on exertion. CARDIOVASCULAR: Denies any chest pain, palpitations, or recent heart attacks. GASTROINTESTINAL: Denies change in bowel habits and gas bloat. Has Dunn's esophagus with reflux disease. GENITOURINARY: Denies any blood in urine or increased urinary frequency. NEUROLOGICAL: Denies any numbness or tingling along the distal extremities. No seizure disorders or headaches. MUSCULOSKELETAL: Denies any back pain, stiffness or joint arthritis. SKIN: No current skin cancer. No rash. PSYCHIATRIC: Denies current depression or suicidal thoughts. ENDOCRINE: Denies current thyroid disorders. Denies any blood sugar glucose intolerance. HEME/LYMPHATIC: Denies any lumps and bumps around the neck. No recent deep venous thrombosis. ALLERGY/IMMUNOLOGY: No immunoglobulin therapy. No immune deficiencies. BREAST: Denies current breast lumps, pain or nipple discharge. PHYSICAL EXAM: VITALS: Reviewed CONSTITUTIONAL: Well developed and in no acute distress. EYES: Conjuctivae without sclera icterus. Extraocular movements grossly intact. HEAD, EARS, NOSE, THROAT: Moist buccal mucosa. Head is atraumatic, normocephalic. Hears conversational speech. No nasal drainage. NECK: Supple. No JV distention. No thyroidomegaly. RESPIRATORY: Non-labored respirations and equal bilateral excursions. No gross wheezes. CARDIOVASCULAR: Palpable 2+ radial pulses. ABDOMEN: No peritonitis. LYMPH: No neck lymphadenopathy. MUSCULOSKELETAL: No clubbing cyanosis or edema SKIN: Warm and well perfused with good skin turgor. NEUROLOGIC: Cranial nerves II through XII grossly intact. No focal or lateralizing signs. PSYCH: Appropriate affect. Alert and oriented to person, place and time. Displays appropriate insight. CLINCAL LABS: Reviewed. LFTs elevated. Mild elevated white count. IMAGING: Independently reviewed. Ultrasound of the gallbladder independently reviewed demonstrates gallstones with contracted gallbladder. This is my independent interpretation. Presence of fatty liver disease. RADIOLOGY: Report reviewed. Ultrasound consistent with acute cholecystitis. RECORDS: Upper endoscopy records reviewed including pathology demonstrating Dunn's esophagus. ASSESSMENT: 1. Symptomatic gallstones with acute cholecystitis 2. Dunn's esophagus 3. Morbid obesity due to excess calories, BMI 37.9 PLAN: 1. Patient reports that she would like to consider her options with surgery versus outpatient management. 2. Robotic cholecystectomy described due to presentation of acute cholecystitis. 3. Zosyn antibiotic started for acute cholecystitis 4. DVT prophylaxis with heparin 5. Time of recovery at least 2 weeks described 6. Patient elevated risk due to comorbid conditions. 7. Admission to hospital described. Past Medical History Past Medical History: GERD/Reflux Additional Past Medical History / Comment(s): PCOS. History of Any Multi-Drug Resistant Organisms: None Reported Date of last positivie culture/infection: 02/26/16 MDRO Source:: abdomen Past Surgical History: No Surgical Hx Reported, Section Additional Past Surgical History / Comment(s): OPEN SURGERY FOR dermoid cyst on ovary removed. Past Anesthesia/Blood Transfusion Reactions: Motion Sickness, Postoperative Nausea & Vomiting (PONV) Past Psychological History: No Psychological Hx Reported Smoking Status: Never smoker Past Alcohol Use History: Occasional Past Drug Use History: None Reported - Past Family History Father Family Medical History: Cancer Additional Family Medical History / Comment(s): July 2015 of Esophageal cancer Mother Family Medical History: Diabetes Mellitus Medications and Allergies Home Medications Medication Instructions Recorded Confirmed Type Omeprazole [PriLOSEC] 20 mg PO BID 02/26/16 07/22/23 History Escitalopram [Lexapro] 20 mg PO DAILY 07/22/23 07/22/23 History Allergies Allergy/AdvReac Type Severity Reaction Status Date / Time amoxicillin Allergy Mild Rash/Hives/ Verified 07/22/23 08:56 Dizziness nitrofurantoin Allergy Rash/Hives/ Verified 07/22/23 08:56 [From Macrobid] Dizziness Surgical - Exam Vital Signs Temp Pulse Resp BP Pulse Ox 98.2 F 90 18 124/68 98 07/22/23 06:02 07/22/23 06:02 07/22/23 06:02 07/22/23 06:02 07/22/23 06:02 Results - Labs 07/22/23 06:18 07/22/23 06:18 Abnormal Lab Results - Last 24 Hours (Table) 07/22/23 07/22/23 07/22/23 Range/Units 06:18 06:18 07:55 WBC 10.7 H (3.8-10.6) k/uL Neutrophils # 8.4 H (1.3-7.7) k/uL Chloride 110 H (98-107) mmol/L Carbon Dioxide 18 L (22-30) mmol/L BUN 24 H (7-17) mg/dL Glucose 130 H (74-99) mg/dL Ur Leukocyte Esterase Small H (Negative) Amorphous Sediment Rare H (None) /hpf Diabetes panel 07/22/23 Range/Units 06:18 Sodium 142 (137-145) mmol/L Potassium 4.2 (3.5-5.1) mmol/L Chloride 110 H (98-107) mmol/L Carbon Dioxide 18 L (22-30) mmol/L BUN 24 H (7-17) mg/dL Creatinine 0.66 (0.52-1.04) mg/dL Glucose 130 H (74-99) mg/dL Calcium 9.7 (8.4-10.2) mg/dL AST 25 (14-36) U/L ALT 20 (4-34) U/L Alkaline Phosphatase 85 (38-126) U/L Total Protein 7.4 (6.3-8.2) g/dL Albumin 4.3 (3.5-5.0) g/dL Calcium panel 07/22/23 Range/Units 06:18 Calcium 9.7 (8.4-10.2) mg/dL Albumin 4.3 (3.5-5.0) g/dL Pituitary panel 07/22/23 Range/Units 06:18 Sodium 142 (137-145) mmol/L Potassium 4.2 (3.5-5.1) mmol/L Chloride 110 H (98-107) mmol/L Carbon Dioxide 18 L (22-30) mmol/L BUN 24 H (7-17) mg/dL Creatinine 0.66 (0.52-1.04) mg/dL Glucose 130 H (74-99) mg/dL Calcium 9.7 (8.4-10.2) mg/dL Adrenal panel 07/22/23 Range/Units 06:18 Sodium 142 (137-145) mmol/L Potassium 4.2 (3.5-5.1) mmol/L Chloride 110 H (98-107) mmol/L Carbon Dioxide 18 L (22-30) mmol/L BUN 24 H (7-17) mg/dL Creatinine 0.66 (0.52-1.04) mg/dL Glucose 130 H (74-99) mg/dL Calcium 9.7 (8.4-10.2) mg/dL Total Bilirubin 0.4 (0.2-1.3) mg/dL AST 25 (14-36) U/L ALT 20 (4-34) U/L Alkaline Phosphatase 85 (38-126) U/L Total Protein 7.4 (6.3-8.2) g/dL Albumin 4.3 (3.5-5.0) g/dL
[2023-07-22] MEDS: LACTATED RINGERS 1,000 ML IV ONE ×2 (16:00→20:09)
[2023-07-22] MEDS: DEXAMETHASONE SOD PHOSPHATE 4 MG/ML 1 ML VIAL IVP ONE (16:08)
[2023-07-22] MEDS ORDERED: ONDANSETRON 4 MG/2 ML VIAL ONE (16:08)
[2023-07-22] MEDS: ONDANSETRON 4 MG/2 ML VIAL IVP ONE (16:09)
[2023-07-22] MEDS ORDERED: LIDOCAINE 1% INJ 10MG/ML (20 ML MDV) ONE (19:05)
[2023-07-22] MEDS ORDERED: INDOCYANINE GREEN 25 MG VIAL IV ONE (19:05)
[2023-07-22] MEDS ORDERED: GLYCOPYRROLATE 0.2 MG/ML 2 ML VIAL ONE (19:05)
[2023-07-22] MEDS ORDERED: fentaNYL (PF) 50 MCG/ML 2 ML AMP ONE (19:05)
[2023-07-22] MEDS ORDERED: HYDROmorphone (PF) 1 MG/ML ONE (19:05)
[2023-07-22] MEDS ORDERED: PROPOFOL 10 MG/ML 20 ML VIAL IV ONE (19:05)
[2023-07-22] MEDS ORDERED: MIDAZOLAM 2 MG/2 ML VIAL ONE (19:05)
[2023-07-22] MEDS ORDERED: SUCCINYLCHOLINE CHLORIDE 200 MG/10 ML VIAL IV ONE (19:05)
[2023-07-22] MEDS ORDERED: NEOSTIGMINE 1 MG/ML 10 ML VIAL ONE (19:05)
[2023-07-22] MEDS ORDERED: ROCURONIUM 10 MG/ML (5 ML VIAL) IV ONE (19:05)
[2023-07-22] MEDS: LIDOCAINE 1%-EPI 1:100,000 50 ML VIAL SQ ONE (19:30)
[2023-07-22] MEDS: HYDROmorphone 0.5 MG/0.5 ML SYRINGE IVP ONE ×2 (20:26→20:31)
[2023-07-22] MEDS ORDERED: HYDROmorphone 1 MG/ML 1 ML SYRINGE IVP PRN (20:32)
[2023-07-22] MEDS: KETOROLAC 15 MG/ML 1 ML VIAL IVP ONE (20:39)
--- NOTE | 2023-07-22 20:40 | P.OP ---
Date of Procedure: 07/22/23 Description of Procedure: SURGEON: ANNIE SINGH MD PREOPERATIVE DIAGNOSES: 1. Acute cholecystitis with sepsis 2. Symptomatic gallstones 3. Dunn's esophagus 4. Morbid obesity due to excess calories, BMI 37.9 5. Polycystic ovarian syndrome 6. Motion sickness 7. Postop nausea vomiting POSTOPERATIVE DIAGNOSES: 1. Acute cholecystitis with sepsis 2. Symptomatic gallstones 3. Dunn's esophagus 4. Morbid obesity due to excess calories, BMI 37.9 5. Polycystic ovarian syndrome 6. Motion sickness 7. Postop nausea vomiting 8. Sigmoid volvulus, right upper quadrant 9. Right upper quadrant peritoneal adhesions OPERATION: 1. Robotic-assisted da Gely Xi laparoscopic lysis of adhesions more than 50% of the case 2. Robotic-assisted da Gely Xi laparoscopic cholecystectomy, multiport with FIREFLY ESTIMATED BLOOD LOSS: 5 mL. SPECIMENS REMOVED: Gallbladder. COMPLICATIONS: None. OPERATIVE FINDINGS: 1. Moderate right upper quadrant peritoneal adhesions involving gallbladder, pericholecystic lysed over 50% of the case performed 2. Active sigmoid volvulus at right upper quadrant overlapping gallbladder identified and reduced 3. Acute on chronic cholecystitis due to gallstone INDICATIONS: The patient is a 32 year-old female who presents with epigastric right upper quadrant pain, symptomatic gallstones, and acute cholecystitis. Surgical intervention with cholecystectomy was described. Robotic assisted laparoscopic approach was described. Benefits and risks of the procedure including but not limited to bleeding, infection, injury to the biliary tree was reviewed. Informed consent was obtained. DESCRIPTION OF PROCEDURE: Patient was brought to the operating room, placed in supine position. After general induction, the abdomen had been prepped and draped in standard sterile fashion. The robotic da Gely XI system was primed. After a timeout protocol was performed, the patient had been prepped and draped in standard sterile fashion. The patient was injected with indocyanine green. A 5 mm 0 degrees laparoscopic trocar entry was performed along the left upper quadrant. The abdomen insufflated to 15 mmHg pressure which was tolerated well. Diagnostic laparoscopy demonstrated no injury to bowel viscera or mesentery. Active sigmoid volvulus obstructing view of the right upper quadrant gallbladder was found without ischemia. Severe pericholecystic adhesions and peritoneal lesions were found at the right upper quadrant. Presence of mild hepatomegaly with fatty liver disease was confirmed. Next, two 8 mm robotic ports were placed along the right upper abdomen. The camera 8-mm port was maintained along the epigastrium. Another 8 mm port was placed along the left upper abdominal wall after exchanging the 5 mm port. Please note that the ports were placed at least 10 to 15 cm away from the target anatomy of the gallbladder. The robot was docked along the left lateral abdomen. The patient was repositioned in reverse Trendelenburg position with the right side up. Using a grasper for arm 3, a grasper for arm 4, including hook cautery for arm 1, the robotic system was docked and primed as described. Instruments were interchanged by the assistant professor of anthropology including hook cautery, Bovie cautery and clip appliers. I had sat at the console. The gallbladder was reflected towards the dome of the liver. Moderate pericholecystic adhesions were identified and lysed using hook cautery consisting over 50% of the case. Due to moderate distention of the infundibulum, dome down technique was performed removing the gallbladder from the hepatic fossa starting from the fundus towards the infundibulum. Using a sponge, the liver was reflected towards the diaphragm and starting at the gallbladder fundus, hook cautery was used to find the avascular plane between the liver and the gallbladder. As the gallbladder was dissected from the hepatic fossa, hemostasis was checked using vessel sealer along the posterior gallbladder. Next, indocyanine green was used to confirm the common bile duct as well as cystic duct. The cystic duct was short and dissection was performed at the junction of the cystic duct and infundibulum. The infundibulum was retracted laterally to expose the cystic duct away from the common bile duct. The cystic duct was dissected free from its surrounding tissue. FIREFLY was used to identify the cystic structures. A critical view of safety was obtained. Large PLASTIC clips were used throughout the entire case. Using a clip retouching operator, 3 clips were placed at the junction of the infundibulum and cystic duct also incorporating cystic artery. Hemostasis was checked and found to be adequate. Mild bleeding at the liver surface was controlled using Bovie cautery at the grasper site. The robot was undocked. I re-scrubbed into the case. A 10 mm Endo Catch bag was used to remove the gallbladder in total via the left upper quadrant incision after widening the incision. The specimen was removed from the abdominal cavity. All pneumoperitoneum instruments were evacuated from the abdominal cavity. The incisions were cleansed using dilute hydrogen peroxide. The incisions were reapproximated using 4-0 Monocryl in an interrupted subcuticular fashion. Please note along the trocar sites, local anesthetic was placed as a field block prior to insertion of all instruments. Liquid glue was applied to the skin. At the end of the procedure needle, sponge, and instrument count had been verified correct by the surgical first assistant. The patient was transferred to postanesthesia care unit in stable condition.
[2023-07-22] MEDS: METOCLOPRAMIDE 5 MG/ML 2 ML VIAL IVP PRN (21:35)
[2023-07-22] MEDS: SCOPOLAMINE 1 MG/72 HR PATCH TRANSDERM STA (22:40)
[2023-07-22] MEDS: ACETAMINOPHEN IV (For NPO) 1,000 MG in EMPTY BAG 1 BAG IVPB ONE (22:41)
[2023-07-22] MEDS: KETOROLAC 15 MG/ML 1 ML VIAL IVP SCH (23:43)
[2023-07-22] MEDS: ONDANSETRON 4 MG/2 ML VIAL IVP SCH (23:44)
[2023-07-23] MEDS: ENOXAPARIN 30 MG/0.3 ML SYRINGE SQ SCH (09:00)
[2023-07-23 11:17] LABS: Basophils # (A) 0.02 X 10*3/uL (0.00-0.10); Basophils % (A) 0.1 %; Eosinophils # (A) 0.01 X 10*3/uL (0.04-0.35); Eosinophils % (A) 0.1 %; HCT 35.2 % (37.2-46.3); HGB 11.4 g/dL (12.0-15.0); Lymphocytes # (A) 1.53 X 10*3/uL (0.90-5.00); Lymphocytes % (A) 10.2 %; MCH 25.9 pg (27.0-32.0); MCHC 32.4 g/dL (32.0-37.0); MCV 79.8 FL (80.0-97.0); Mean Platelet Volume 9.8 FL (9.5-12.2); Monocytes # (A) 0.64 X 10*3/uL (0.20-1.00); Monocytes % (A) 4.3 %; NRBC Per 100 WBC 0 X 10*3/uL (0.00-0.01); Neutrophils # (A) 12.68 X 10*3/uL (1.80-7.70); Neutrophils % (A) 84.9 %; Platelet Count 330 X 10*3/uL (140-440); RBC 4.41 X 10*6/uL (4.10-5.20); RDW 14.9 % (11.5-14.5); WBC 14.94 X 10*3/uL (4.50-10.00)
[2023-07-23 11:38] LABS: ALT 24 U/L (8-44); AST 28 U/L (13-35); Albumin 3.9 g/dL (3.8-4.9); Albumin/Globulin Ratio 1.56 Ratio (1.60-3.17); Alkaline Phosphatase 57 U/L (41-126); BUN/Creat Ratio 15.83 Ratio (12.00-20.00); Blood Urea Nitrogen 9.5 mg/dL (9.0-27.0); Carbon Dioxide 25.2 mmol/L (21.6-31.8); Chloride 102 mmol/L (96-109); Globulin 2.5 g/dL (1.6-3.3); Glucose 104 mg/dL (70-110); Potassium 4.2 mmol/L (3.5-5.5); Sodium 139 mmol/L (135-145); Total Bilirubin 0.3 mg/dL (0.3-1.2); Total Protein 6.4 g/dL (6.2-8.2)
--- NOTE | 2023-07-23 13:08 | P.PN ---
Subjective Progress Note Date: 07/23/23 CHIEF COMPLAINT: Abdominal pain HISTORY OF PRESENT ILLNESS: The patient is a 32-year-old female status post cholecystectomy for acute cholecystitis. She reports appropriate incisional pain. She reports internal right upper quadrant abdominal pain. Incidentally, patient has intraoperative finding of sigmoid volvulus which was detorsed during surgery. REVIEW OF ORGAN SYSTEMS: PHYSICAL EXAM: VITALS: Reviewed CONSTITUTIONAL: Well developed and in no acute distress. EYES: Conjuctivae without sclera icterus. Extraocular movements grossly intact. HEAD, EARS, NOSE, THROAT: Moist buccal mucosa. Head is atraumatic, normocephalic. Hears conversational speech. No nasal drainage. RESPIRATORY: Non-labored respirations and equal bilateral excursions. No gross wheezes. CARDIOVASCULAR: Palpable 2+ radial pulses. ABDOMEN: No peritonitis. MUSCULOSKELETAL: No clubbing cyanosis or edema SKIN: Warm and well perfused with good skin turgor. NEUROLOGIC: Cranial nerves II through XII grossly intact. No focal or lateralizing signs. PSYCH: Appropriate affect. Alert and oriented to person, place and time. Displays appropriate insight. CLINCAL LABS: Reviewed. LFTs normal. WBC appropriately elevated due to post stress response ASSESSMENT: 1. Symptomatic gallstones with acute cholecystitis 2. Dunn's esophagus 3. Morbid obesity due to excess calories, BMI 37.9 4. Sigmoid volvulus PLAN: 1. Recommend CT of the abdomen pelvis due to new finding of sigmoid volvulus and right upper quadrant abdominal pain. 2. Discharge pending follow-up CT scan regarding abdominal pain 3. Follow-up as outpatient for Dunn's esophagus including sigmoid volvulus Objective - Vital Signs Vital signs: Vital Signs Temp 98.6 F 07/23/23 06:53 Pulse 62 07/23/23 06:53 Resp 16 07/23/23 06:53 BP 92/60 07/23/23 06:53 Pulse Ox 99 07/23/23 06:53 FiO2 Intake & Output 07/22/23 07/23/23 07/23/23 18:59 06:59 18:59 Intake Total 2160 Output Total 5 Balance 2155 Weight 97.069 kg 97.069 kg Intake: IV 1200 Oral 960 Output: Estimated Blood Loss 5 Other: Voiding Method Toilet Toilet # Voids 2 - Labs CBC & Chem 7: 07/23/23 06:20 07/23/23 06:20 Labs: Abnormal Lab Results - Last 24 Hours (Table) 07/23/23 07/23/23 Range/Units 06:20 06:20 WBC 14.94 H (4.50-10.00) X 10*3/uL Hgb 11.4 L (12.0-15.0) g/dL Hct 35.2 L (37.2-46.3) % MCV 79.8 L (80.0-97.0) FL MCH 25.9 L (27.0-32.0) pg RDW 14.9 H (11.5-14.5) % Immature Gran # 0.06 H (0.00-0.04) X 10*3/uL Neutrophils # 12.68 H (1.80-7.70) X 10*3/uL Eosinophils # 0.01 L (0.04-0.35) X 10*3/uL Albumin/Globulin Ratio 1.56 L (1.60-3.17) Ratio
--- NOTE | 2023-07-23 13:23 | P.DS ---
Providers Date of admission: 07/22/23 08:32 Expected date of discharge: 07/23/23 Attending physician: Darcy Duncan Primary care physician: Vanessa Scanlon Hospital Course: POSTOPERATIVE DIAGNOSES: 1. Acute cholecystitis with sepsis 2. Symptomatic gallstones 3. Dunn's esophagus 4. Morbid obesity due to excess calories, BMI 37.9 5. Polycystic ovarian syndrome 6. Motion sickness 7. Postop nausea vomiting 8. Sigmoid volvulus, right upper quadrant 9. Right upper quadrant peritoneal adhesions COURSE: The patient is a 32 year-old female who presented with acute cholecystitis and right upper quadrant abdominal pain. She underwent robotic cholecystectomy with new findings of sigmoid volvulus which was detorsed during her procedure. Laboratory results demonstrated improvement of LFTs however patient did complain of left upper quadrant abdominal pain. CT of the abdomen pelvis was ordered to assess recurrent sigmoid volvulus prior to discharge. Prior to discharge, discharge instructions and diet were reviewed. Outpatient follow-up for Dunn's esophagus including sigmoid volvulus described. Patient Condition at Discharge: Stable Plan - Discharge Summary Discharge Rx Participant: No New Discharge Prescriptions: New Ibuprofen [Motrin] 600 mg PO Q8HR PRN #30 tab PRN Reason: Pain Simethicone [Gas-X] 125 mg PO AC-TID PRN #20 capsule PRN Reason: Pain Acetaminophen Tab [Tylenol Tab] 1,000 mg PO Q6HR PRN #30 tablet PRN Reason: Pain Continue Omeprazole [PriLOSEC] 20 mg PO BID Escitalopram [Lexapro] 20 mg PO DAILY Discharge Medication List Omeprazole [PriLOSEC] 20 mg PO BID 02/26/16 [History] Escitalopram [Lexapro] 20 mg PO DAILY 07/22/23 [History] Acetaminophen Tab [Tylenol Tab] 1,000 mg PO Q6HR PRN #30 tablet 07/23/23 [Rx] Ibuprofen [Motrin] 600 mg PO Q8HR PRN #30 tab 07/23/23 [Rx] Simethicone [Gas-X] 125 mg PO AC-TID PRN #20 capsule 07/23/23 [Rx] Follow up Appointment(s)/Referral(s): Vanessa Scanlon MD [Primary Care Provider] - 1-2 days Darcy Duncan MD [STAFF PHYSICIAN] - 07/27/23 (TELEHEALTH - DR WILL CALL YOU BETWEEN 9 am to 8 pm) Patient Instructions/Handouts: Low Fat Diet (DC), Laparoscopic Cholecystectomy (DC) Activity/Diet/Wound Care/Special Instructions: TELEHEALTH - DR WILL CALL YOU BETWEEN 9 am to 8 pm Recommend low-fat diet for the next 2 days. No lifting over 10 pounds in 2 weeks until August 05August shower. No bath tub soaks for two weeks until August 05 Diet as tolerated. Use Tylenol, simethicone and ibuprofen or Aleve scheduled for the next 24-48 hours for best pain relief. Use ice along incisions for today to prevent swelling. Discharge Disposition: HOME SELF-CARE
[2023-07-23 14:43] VITALS: BP 103/63; PULSE 75; RESP 18; TEMP 98.5
[2023-07-23] MEDS: IOPAMIDOL CONTRAST (ORAL USE) VIAL PO PRN (15:10)
--- NOTE | 2023-07-23 16:57 | CT ---
EXAMINATION TYPE: CT abdomen pelvis w con DATE OF EXAM: 07/23/2023 COMPARISON: 04/29/2014 HISTORY: Gallbladder removed yesterday. CT DLP: 1869.2 mGycm Automated exposure control for dose reduction was used. TECHNIQUE: Helical acquisition of images was performed from the lung bases through the pelvis. CONTRAST: Performed with Oral Contrast and with IV Contrast, patient injected with 100 mL of Isovue 300. FINDINGS: There is mild posterior bibasilar atelectasis.. There is a 5 mm right lower lobe pulmonary nodule whi ch is likely benign. There is mild inflammation within the gallbladder fossa consistent with the history of recent cholecy stectomy. There is no biliary ductal dilatation. There is no focal mass or organomegaly involving the liver, pancreas, spleen or adrenal glands. There is no solid renal mass or hydronephrosis and there is homogeneous contrast enhancement of the r enal parenchyma. The caliber the abdominal aorta is normal is no retroperitoneal adenopathy or hemorr camila. The bowel loops are normal in caliber and there is no evidence of dilatation or obstruction. No infla mmatory changes are identified in the bowel wall or mesentery. There is no free intraperitoneal air or fluid. No pelvic mass, free fluid, abscess or adenopathy. No focal osseous lesions are seen. There are scattered air bubbles in the upper anterior abdominal wall soft tissues consistent with the history of recent surgical intervention for cholecystectomy. IMPRESSION: 1. Postoperative changes of cholecystectomy. 2. No other significant amount is seen.
[2023-07-23] MEDS: ESCITALOPRAM 20 MG TAB PO SCH (19:23)
[2023-07-23] MEDS ORDERED: PANTOPRAZOLE 40 MG TABLET PO SCH (21:00)
[2023-07-24] MEDS ORDERED: ESCITALOPRAM 20 MG TAB PO SCH ×2 (09:00→18:32)
== END 2023-07-23 19:45 | disposition home or self-care (01) ==
LOC: EC 05:55 → 6NMEDSUR 08:32 → 4SSUR 15:02
PROVIDERS: ADMIT Surgery Plastic and Reconstructive Surgery; ATTEND Surgery Plastic and Reconstructive Surgery
DX: A41.9 Sepsis, unspecified organism (principal); K80.12 Calculus of gallbladder with acute and chronic cholecystitis without obstruction; K66.0 Peritoneal adhesions (postprocedural) (postinfection); K56.2 Volvulus; K76.0 Fatty (change of) liver, not elsewhere classified; K21.9 Gastro-esophageal reflux disease without esophagitis; E28.2 Polycystic ovarian syndrome; K22.70 Barrett's esophagus without dysplasia; E66.01 Morbid (severe) obesity due to excess calories; Z68.37 Body mass index [BMI] 37.0-37.9, adult; Z79.82 Long term (current) use of aspirin; Z79.4 Long term (current) use of insulin; Z88.0 Allergy status to penicillin; Z88.1 Allergy status to other antibiotic agents; Z98.891 History of uterine scar from previous surgery
CPT/HCPCS: 47562; S2900; 36415; 74177; 76705; 80053; 81001; 81025; 82150; 83605; 83690; 85025; 87040; 88304; 96361; 96372; 96374; 96375; 99285

== ENCOUNTER → 2023-08-18 | Outpatient (CLI) | payer BC ==
--- NOTE | 2023-08-18 17:33 | P.BASOAP ---
Subjective Progress Note Date: 08/18/23 She reports barretts. EGD Barretts as anti-reflux. She needs weight loss. Objective - Vital Signs Vital signs: Vital Signs Temp 98.2 F 08/18/23 16:55 Pulse 93 08/18/23 16:55 Resp 16 08/18/23 16:55 BP 127/84 08/18/23 16:55 Pulse Ox FiO2 Intake & Output 08/17/23 08/18/23 08/18/23 18:59 06:59 18:59 Weight 101.151 kg Assessment/Plan Plan: Date: 08/18/23 Initial Weight: 101.151 kg Initial BMI: 38.9 Current Weight: 101.151 kg Current BMI: 38.9 Type of Surgery: Total Volume in Band: Previous Volume: Volume Removed: Volume Added: Band Size:
[2023-08-18 17:35] VITALS: BP 127/84; PULSE 93; RESP 16; TEMP 98.2; BMI 38.9
== END ==
LOC: BARWHC3 16:54
PROVIDERS: ATTEND Surgery Plastic and Reconstructive Surgery
DX: E66.01 Morbid (severe) obesity due to excess calories (principal); K21.9 Gastro-esophageal reflux disease without esophagitis; Z88.0 Allergy status to penicillin; Z88.6 Allergy status to analgesic agent; Z68.38 Body mass index [BMI] 38.0-38.9, adult
CPT/HCPCS: 99202

== ENCOUNTER 2023-08-29 12:25 | Emergency (ER) | payer BC ==
[2023-08-29 13:04] VITALS: TEMP 98.3
[2023-08-29] MEDS ORDERED: VANCOMYCIN IV PER PHARMACY 1 EACH MISC MISCELLANE PRN (13:26)
--- NOTE | 2023-08-29 13:58 | ED ---
Skin/Abscess/FB HPI - General Chief complaint: Skin/Abscess/Foreign Body Stated complaint: Abscess Time Seen by Provider: 08/29/23 12:45 Source: patient, RN notes reviewed Mode of arrival: ambulatory Limitations: no limitations - History of Present Illness Initial comments: 32-year-old female presenting with abscess on right lower quadrant of abdomen x 2 days. Denies drainage from the site. Admits some surrounding redness. Denies fever, chills. She states she had an abscess on her abdomen several years ago, went septic, and was admitted to the hospital for 5 days. - Related Data Home Medications Medication Instructions Recorded Confirmed Omeprazole [PriLOSEC] 20 mg PO BID 02/26/16 08/20/23 Escitalopram [Lexapro] 20 mg PO DAILY 07/22/23 08/20/23 Previous Rx's Medication Instructions Recorded Acetaminophen Tab [Tylenol Tab] 1,000 mg PO Q6HR PRN #30 tablet 07/23/23 Ibuprofen [Motrin] 600 mg PO Q8HR PRN #30 tab 07/23/23 Simethicone [Gas-X] 125 mg PO AC-TID PRN #20 capsule 07/23/23 Cephalexin [Keflex] 500 mg PO Q6HR 7 Days #28 cap 08/29/23 Sulfamethox-Tmp 800-160Mg [Bactrim 1 each PO Q12HR 7 Days #14 tab 08/29/23 Ds] Allergies Allergy/AdvReac Type Severity Reaction Status Date / Time amoxicillin Allergy Mild Rash/Hives/ Verified 07/22/23 08:56 Dizziness nitrofurantoin Allergy Rash/Hives/ Verified 07/22/23 08:56 [From Macrobid] Dizziness Review of Systems ROS Statement: Those systems with pertinent positive or pertinent negative responses have been documented in the HPI. ROS Other: All systems not noted in ROS Statement are negative. Past Medical History Past Medical History: GERD/Reflux Additional Past Medical History / Comment(s): PCOS. History of Any Multi-Drug Resistant Organisms: None Reported Date of last positivie culture/infection: 02/26/16 MDRO Source:: abdomen Past Surgical History: No Surgical Hx Reported, Section, Cholecystectomy Additional Past Surgical History / Comment(s): OPEN SURGERY FOR dermoid cyst on ovary removed. Past Anesthesia/Blood Transfusion Reactions: Motion Sickness, Postoperative Nausea & Vomiting (PONV) Past Psychological History: No Psychological Hx Reported Smoking Status: Never smoker Past Alcohol Use History: Occasional Past Drug Use History: None Reported - Past Family History Father Family Medical History: Cancer Additional Family Medical History / Comment(s): July 2015 of Esophageal cancer Mother Family Medical History: Diabetes Mellitus General Exam Limitations: no limitations General appearance: alert, in no apparent distress Head exam: Present: atraumatic, normocephalic, normal inspection Eye exam: Present: normal appearance, PERRL, EOMI. Absent: scleral icterus, conjunctival injection, periorbital swelling ENT exam: Present: normal exam, mucous membranes moist Respiratory exam: Present: normal lung sounds bilaterally. Absent: respiratory distress, wheezes, rales, rhonchi, stridor Cardiovascular Exam: Present: regular rate, normal rhythm, normal heart sounds. Absent: systolic murmur, diastolic murmur, rubs, gallop, clicks GI/Abdominal exam: Present: soft, normal bowel sounds. Absent: distended, te nderness, guarding, rebound, rigid Psychiatric exam: Present: normal affect, normal mood Skin exam: Present: warm, dry, intact, normal color, other (4 x 4 cm fluctuant mass present on right lower aspect of abdomen with no drainage. There is diffuse surrounding erythema.) Course Vital Signs 08/29/23 12:26 Temperature 98.3 F Pulse Rate 97 Respiratory 16 Rate Blood Pressure 128/86 O2 Sat by Pulse 98 Oximetry Procedures - Incision & Drainage Consent Obtained: verbal consent Indication: Abscess Site: abdomen Size (cm): 4 Anesthetic Used: lidocaine 1%, without epi Amount (mLs): 4 I&D Cleaning Method: Alcohol Wipe, Betadine Sterile Field Used?: Yes Scalpel Used: #11 Ultrasound used: No Needle Aspiration Performed?: No Irrigation Performed?: No I&D Drainage Obtained: Pus, Blood Loculation Noted: probing needed to break Insertion of drain: No Culture Obtained?: No Patient Tolerated Procedure: well, no complications Medical Decision Making - Medical Decision Making Was pt. sent in by a medical professional or institution (, PA, SCRIPT READER, urgent care, hospital, or shelter...) When possible be specific @ -No Did you speak to anyone other than the patient for history (EMS, parent, family, police, friend...)? What history was obtained from this source @ -No Did you review nursing and triage notes (agree or disagree)? Why? @ -I reviewed and agree with nursing and triage notes Were old charts reviewed (outside hosp., previous admission, EMS record, old EKG, old radiological studies, urgent care reports/EKG's, shelter records)? Report findings @ -No old charts were reviewed Differential Diagnosis (chest pain, altered mental status, abdominal pain women, abdominal pain men, vaginal bleeding, weakness, fever, dyspnea, syncope, headache, dizziness, GI bleed, back pain, seizure, CVA, palpatations, mental health, musculoskeletal)? @ -Abscess, cellulitis, sepsis, dermatitis EKG interpreted by me (3pts min.). @ -None X-rays interpreted by me (1pt min.). @ -None done CT interpreted by me (1pt min.). @ -None done U/S interpreted by me (1pt. min.). @ -None done What testing was considered but not performed or refused? (CT, X-rays, U/S, labs)? Why? @ -None What meds were considered but not given or refused? Why? @ -None Did you discuss the management of the patient with other professionals (professionals i.e. DrAnaly, PA, SCRIPT READER, lab, RT, psych nurse, long term care social worker, cafeteria table attendant, teacher, promotions officer, caser up)? Give summary @ -No Was smoking cessation discussed for >3mins.? @ -No Was critical care preformed (if so, how long)? @ -No Were there social determinants of health that impacted care today? How? (Homelessness, low income, unemployed, alcoholism, drug addiction, transportation, low edu. Level, literacy, decrease access to med. care, half-way, rehab)? @ -No Was there de-escalation of care discussed even if they declined (Discuss DNR or withdrawal of care, Hospice)? DNR status @ -No What co-morbidities impacted this encounter? (DM, HTN, Smoking, COPD, CAD, Cancer, CVA, ARF, Chemo, Hep., AIDS, mental health diagnosis, sleep apnea, morbid obesity)? @ -None Was patient admitted / discharged? Hospital course, mention meds given and route, prescriptions, significant lab abnormalities, going to OR and other pertinent info. @ -Patient was discharged. Patient was seen and evaluated for abscess on right lower aspect of abdomen. Patient is afebrile and nontachycadic. Incision and drainage was performed on 4 x 4 centimeter fluctuant abscess with no complications. Due to history of sepsis secondary to abdominal abscess, patient was given a dose of IV vancomycin and Rocephin. Lab work was unremarkable. Discussed diagnosis of abscess with patient and wound care discussed. Prescribed Bactrim and Keflex Discussed close follow-up with PCP. Return/alarm symptoms discussed with patient and patient shows understanding and agrees to plan. Patient discharged in stable condition. Case discussed with Dr. Baldwin. Undiagnosed new problem with uncertain prognosis? @ -No Drug Therapy requiring intensive monitoring for toxicity (Heparin, Nitro, Insulin, Cardizem)? @ -No Were any procedures done? @ -No Diagnosis/symptom? @ -Abscess Acute, or Chronic, or Acute on Chronic? @ -Acute Uncomplicated (without systemic symptoms) or Complicated (systemic symptoms)? @ -Uncomplicated Side effects of treatment? @ -No Exacerbation, Progression, or Severe Exacerbation? @ -No Poses a threat to life or bodily function? How? (Chest pain, [place], [place], pneumonia, PE, COPD, DKA, ARF, appy, cholecystitis, CVA, Diverticulitis, Homicidal, Suicidal, threat to staff... and all critical care pts) @ -No - Lab Data Result diagrams: 08/29/23 13:48 08/29/23 13:48 Lab Results 08/29/23 08/29/23 Range/Units 13:48 13:48 WBC 12.3 H (3.8-10.6) k/uL RBC 4.59 (3.80-5.40) m/uL Hgb 12.1 (11.4-16.0) gm/dL Hct 36.9 (34.0-46.0) % MCV 80.2 (80.0-100.0) fL MCH 26.3 (25.0-35.0) pg MCHC 32.7 (31.0-37.0) g/dL RDW 15.4 (11.5-15.5) % Plt Count 295 (150-450) k/uL MPV 7.4 Neutrophils % 76 % Lymphocytes % 15 % Monocytes % 5 % Eosinophils % 3 % Basophils % 0 % Neutrophils # 9.3 H (1.3-7.7) k/uL Lymphocytes # 1.8 (1.0-4.8) k/uL Monocytes # 0.6 (0-1.0) k/uL Eosinophils # 0.4 (0-0.7) k/uL Basophils # 0.0 (0-0.2) k/uL Sodium 138 (137-145) mmol/L Potassium 3.9 (3.5-5.1) mmol/L Chloride 107 (98-107) mmol/L Carbon Dioxide 22 (22-30) mmol/L Anion Gap 9 mmol/L BUN 15 (7-17) mg/dL Creatinine 0.48 L (0.52-1.04) mg/dL Est GFR (CKD-EPI)AfAm >90 (>60 ml/min/1.73 sqM) Est GFR (CKD-EPI)NonAf >90 (>60 ml/min/1.73 sqM) Glucose 130 H (74-99) mg/dL Calcium 8.5 (8.4-10.2) mg/dL Total Bilirubin 0.6 (0.2-1.3) mg/dL AST 23 (14-36) U/L ALT 17 (4-34) U/L Alkaline Phosphatase 86 (38-126) U/L Total Protein 6.8 (6.3-8.2) g/dL Albumin 3.8 (3.5-5.0) g/dL Disposition Clinical Impression: Abscess Disposition: HOME SELF-CARE Condition: Stable Instructions (If sedation given, give patient instructions): Abscess Incision and Drainage (DC) Additional Instructions: Please return to the Emergency Department if symptoms worsen or any other aileen rns. Prescriptions: Sulfamethox-Tmp 800-160Mg [Bactrim Ds] 1 each PO Q12HR 7 Days #14 tab Cephalexin [Keflex] 500 mg PO Q6HR 7 Days #28 cap Is patient prescribed a controlled substance at d/c from ED?: No Referrals: Vanessa Scanlon MD [Primary Care Provider] - 1-2 days Time of Disposition: 15:19
[2023-08-29 14:06] LABS: Basophils % (A) 0 %; Eosinophils # (A) 0.4 k/uL (0-0.7); Eosinophils % (A) 3 %; HCT 36.9 % (34.0-46.0); HGB 12.1 gm/dL (11.4-16.0); Lymphocytes # (A) 1.8 k/uL (1.0-4.8); Lymphocytes % (A) 15 %; MCH 26.3 pg (25.0-35.0); MCHC 32.7 g/dL (31.0-37.0); MCV 80.2 fL (80.0-100.0); Mean Platelet Volume 7.4; Monocytes # (A) 0.6 k/uL (0-1.0); Monocytes % (A) 5 %; Neutrophils # (A) 9.3 k/uL (1.3-7.7); Neutrophils % (A) 76 %; Platelet Count 295 k/uL (150-450); RBC 4.59 m/uL (3.80-5.40); RDW 15.4 % (11.5-15.5); WBC 12.3 k/uL (3.8-10.6)
[2023-08-29 14:25] LABS: ALT 17 U/L (4-34); AST 23 U/L (14-36); African American GFR (CKD) >90 (>60 ml/min/1.73 sqM); Albumin 3.8 g/dL (3.5-5.0); Alkaline Phosphatase 86 U/L (38-126); Anion Gap 9 mmol/L; Blood Urea Nitrogen 15 mg/dL (7-17); Calcium 8.5 mg/dL (8.4-10.2); Carbon Dioxide 22 mmol/L (22-30); Chloride 107 mmol/L (98-107); Glucose 130 mg/dL (74-99); Non-African American GFR(CKD) >90 (>60 ml/min/1.73 sqM); Potassium 3.9 mmol/L (3.5-5.1); Sodium 138 mmol/L (137-145); Total Bilirubin 0.6 mg/dL (0.2-1.3); Total Protein 6.8 g/dL (6.3-8.2)
[2023-08-29] MEDS: LIDOCAINE 1% INJ 10MG/ML (20 ML MDV) SQ ONE (14:50)
[2023-08-29] MEDS: VANCOMYCIN 2,000 MG in SODIUM CHLORIDE 0.9% 500 ML 500 ML IVPB ONE (15:36)
[2023-08-29 15:48] VITALS: BP 120/84; PULSE 92; RESP 18
[2023-08-30] MEDS ORDERED: VANCOMYCIN 1,500 MG in SODIUM CHLORIDE 0.9% 500 ML 500 ML IVPB SCH
== END 2023-08-29 15:38 | disposition home or self-care (01) ==
LOC: EC 12:25
DX: L02.211 Cutaneous abscess of abdominal wall (principal); Z88.0 Allergy status to penicillin; Z88.1 Allergy status to other antibiotic agents
CPT/HCPCS: 36415; 80053; 85025; 87040; 10060; 99283; 96365; J2001; J0696

== ENCOUNTER → 2023-09-13 | Outpatient (CLI) | payer BC ==
[2023-09-13 12:06] LABS: Partial Thromboplastin Time 24.7 sec (22.0-30.0); Prothrombin Time 11.3 sec (10.0-12.5)
[2023-09-13 15:25] LABS: HCT 37.8 % (37.2-46.3); HGB 12.2 g/dL (12.0-15.0); MCH 25.8 pg (27.0-32.0); MCHC 32.3 g/dL (32.0-37.0); MCV 80.1 FL (80.0-97.0); Mean Platelet Volume 9.5 FL (9.5-12.2); NRBC Per 100 WBC 0 X 10*3/uL (0.00-0.01); Platelet Count 270 X 10*3/uL (140-440); RBC 4.72 X 10*6/uL (4.10-5.20); RDW 15.4 % (11.5-14.5); WBC 6.21 X 10*3/uL (4.50-10.00)
[2023-09-13 15:54] LABS: Prealbumin 24.8 mg/dL (18.0-42.0)
[2023-09-13 16:20] LABS: % Iron Saturation 13.13 (12.00-45.00); ALT 21 U/L (8-44); AST 20 U/L (13-35); Albumin 4.3 g/dL (3.8-4.9); Albumin/Globulin Ratio 1.59 Ratio (1.60-3.17); Alkaline Phosphatase 55 U/L (41-126); Blood Urea Nitrogen 13.4 mg/dL (9.0-27.0); Calcium 9.2 mg/dL (8.7-10.3); Carbon Dioxide 24.8 mmol/L (21.6-31.8); Chloride 101 mmol/L (96-109); Chol/HDL Ratio 3.24 Ratio; Globulin 2.7 g/dL (1.6-3.3); Glucose 111 mg/dL (70-110); Iron 52 UG/DL (50-170); LDL Cholesterol,Calculated 68.9 mg/dL (0.0-131.0); Magnesium 1.7 mg/dL (1.5-2.4); Phosphorus 2.7 mg/dL (2.4-5.1); Potassium 4.1 mmol/L (3.5-5.5); Sodium 136 mmol/L (135-145); Total Bilirubin 0.3 mg/dL (0.3-1.2); Total Iron Binding Capacity 396 UG/DL (228-460)
[2023-09-13 16:21] LABS: Ferritin 27.8 ng/mL (10.0-291.0)
== END | disposition home or self-care (01) ==
LOC: LABWHC1 11:15
PROVIDERS: ATTEND Surgery Plastic and Reconstructive Surgery
DX: E66.01 Morbid (severe) obesity due to excess calories (principal); E89.1 Postprocedural hypoinsulinemia; D50.8 Other iron deficiency anemias; K91.2 Postsurgical malabsorption, not elsewhere classified; E44.0 Moderate protein-calorie malnutrition; E45 Retarded development following protein-calorie malnutrition; E55.9 Vitamin D deficiency, unspecified; K74.1 Hepatic sclerosis; N19 Unspecified kidney failure; T56.894A Toxic effect of other metals, undetermined, initial encounter; K50.90 Crohn's disease, unspecified, without complications
CPT/HCPCS: 36415; 80053; 80061; 82306; 82525; 82607; 82728; 82746; 83036; 83540; 83550; 83735; 83970; 84100; 84134; 84425; 84443; 84590; 84630; 85027; 85610; 85730

== ENCOUNTER 2023-10-25 06:58 | Day surgery (SDC) | payer BC ==
[2023-10-25 07:15] VITALS: TEMP 97.7
[2023-10-25] MEDS: IV FLUID CONTINUATION 1,000 ML IV ONE ×3 (07:30→07:32)
[2023-10-25] MEDS: LACTATED RINGERS 1,000 ML IV SCH (07:30)
--- NOTE | 2023-10-25 07:31 | P.GSHP ---
History of Present Illness H&P Date: 10/25/23 CHIEF COMPLAINT: GERD HISTORY OF PRESENT ILLNESS: The patient is a 32-year-old female who presents reports gastroesophageal reflux disease. Upper endoscopy was offered for further evaluation and management. PAST MEDICAL HISTORY: Please see list. PAST SURGICAL HISTORY: Please see list. MEDICATIONS: Please see list. ALLERGIES: Please see list. SOCIAL HISTORY: No illicit drug use FAMILY HISTORY: No reports of Crohn disease or ulcerative colitis. REVIEW OF ORGAN SYSTEMS: CONSTITUTIONAL: No reports of fevers or chills. GI: Denies any blood in stools or constipation. PHYSICAL EXAM: VITAL SIGNS: Stable GENERAL: Well-developed and pleasant in no acute distress. HEENT: No scleral icterus. Extraocular movements grossly intact. Moist buccal mucosa. NECK: Supple without lymphadenopathy. CHEST: Unlabored respirations. Equal bilateral excursions. CARDIOVASCULAR: Regular rate and rhythm. Distal 2+ pulses. ABDOMEN: Soft, nondistended. MUSCULOSKELETAL: No clubbing, cyanosis, or edema. ASSESSMENT: 1. Gastroesophageal reflux disease PLAN: 1. Recommend proceeding with an upper endoscopy Past Medical History Past Medical History: GERD/Reflux Additional Past Medical History / Comment(s): PCOS. Gestational diabetes. 5 months . Barretts esophagus. History of Any Multi-Drug Resistant Organisms: None Reported Date of last positivie culture/infection: 02/26/16 MDRO Source:: abdomen Past Surgical History: Section, Cholecystectomy Additional Past Surgical History / Comment(s): OPEN SURGERY FOR dermoid cyst on ovary removed. EGD. Past Anesthesia/Blood Transfusion Reactions: Motion Sickness, Postoperative Nausea & Vomiting (PONV) Additional Past Anesthesia/Blood Transfusion Reaction / Comment(s): sister with PONV Smoking Status: Never smoker - Past Family History Father Family Medical History: Cancer Additional Family Medical History / Comment(s): July 2015 of Esophageal cancer Mother Family Medical History: Diabetes Mellitus Medications and Allergies Home Medications Medication Instructions Recorded Confirmed Type Escitalopram [Lexapro] 20 mg PO DAILY 07/22/23 10/25/23 History Omeprazole 20 mg PO BID 10/21/23 10/25/23 History Allergies Allergy/AdvReac Type Severity Reaction Status Date / Time amoxicillin Allergy Mild Rash/Hives/ Verified 10/25/23 07:17 Dizziness nitrofurantoin Allergy Rash/Hives/ Verified 10/25/23 07:17 [From Macrobid] Dizziness Surgical - Exam Vital Signs Temp Pulse Resp BP Pulse Ox 97.7 F 89 16 123/71 98 10/25/23 07:13 10/25/23 07:13 10/25/23 07:13 10/25/23 07:13 10/25/23 07:13
[2023-10-25] MEDS ORDERED: PROPOFOL 10 MG/ML 20 ML VIAL IV ONE (07:32)
[2023-10-25 07:35] LABS: Glucose,Whole Blood 125 mg/dL (70-110)
[2023-10-25 08:19] VITALS: RESP 17
--- NOTE | 2023-10-25 08:21 | P.PCN ---
Date of Procedure: 10/25/23 Description of Procedure: PREOPERATIVE DIAGNOSIS: Gastroesophageal reflux disease. Morbid obesity. POSTOPERATIVE DIAGNOSIS: Dunn's esophagus Morbid obesity. Gastritis with bleeding Gastric polyp Diaphragmatic hiatal hernia OPERATION: Esophagogastroduodenoscopy with hot snare snare polypectomy, gastric cardia for bleeding gastric polyp Esophagogastroduodenoscopy with biopsies along esophagus, antrum and duodenum SURGEON: Darcy Duncan MD ANESTHESIA: MAC. INDICATIONS: The patient is a 32-year-old female who presents with reflux disease. Benefits and risks of the procedure were described. Informed consent was obtained. DESCRIPTION: The patient was brought into the endoscopy suite and laid in the left lateral decubitus position. An Olympus gastroscope was passed along the posterior oropharynx down to the distal esophagus where the squamocolumnar junction was encountered at 32 cm from the incisors. The stomach was entered and no bile reflux was found. Additional findings are listed below. Biopsies with cold forceps were obtained of the antrum. The first through third portion of the duodenum was examined. Retroflexion of the scope confirmed Hill grade lower esophageal valve unable to obtain due to insufficient insufflation. The squamocolumnar junction demonstrated LA grade B erosive esophagitis. Large bleeding gastric polyp along the gastric cardia was excised using hot snare polypectomy the stomach was desufflated. The patient tolerated the procedure well. FINDINGS: Squamocolumnar junction 24 cm from the incisors. Diaphragmatic hiatus at 32 cm. Long segment Dunn's esophagus, 8 cm with biopsies obtained, multiple Hiatal hernia, 2 cm Hill grade lower esophageal valve, able to obtain LA grade D erosive esophagitis. Biopsies obtained of the duodenum. Chronic gastritis with biopsies obtained. Bleeding gastric polyp and gastric cardia resected using hot snare RECOMMENDATIONS: Recommend antireflux procedure, gastric bypass Plan - Discharge Summary Discharge Rx Participant: No New Discharge Prescriptions: Continue Escitalopram [Lexapro] 20 mg PO DAILY Omeprazole 20 mg PO BID Discharge Medication List Escitalopram [Lexapro] 20 mg PO DAILY 07/22/23 [History] Omeprazole 20 mg PO BID 10/21/23 [History] [facility]Ref[facility] [place] [place] [facility] [place] [facility] Patient Instructions/Handouts: *Surgery [facility] - (Anesthesia) Discharge Instructions Outpatient Surgery, Hiatal Hernia (DC) Discharge Disposition: HOME SELF-CARE
[2023-10-25 08:25] VITALS: BP 100/69; PULSE 89
== END 2023-10-25 08:48 | disposition home or self-care (01) ==
LOC: ORWHC2ENDO 06:58
PROVIDERS: ATTEND Surgery Plastic and Reconstructive Surgery
DX: K21.00 Gastro-esophageal reflux disease with esophagitis, without bleeding (principal); K29.50 Unspecified chronic gastritis without bleeding; K22.70 Barrett's esophagus without dysplasia; K31.7 Polyp of stomach and duodenum; K29.80 Duodenitis without bleeding; K44.9 Diaphragmatic hernia without obstruction or gangrene; Z80.0 Family history of malignant neoplasm of digestive organs; E66.01 Morbid (severe) obesity due to excess calories; Z68.38 Body mass index [BMI] 38.0-38.9, adult; Z88.1 Allergy status to other antibiotic agents; Z88.0 Allergy status to penicillin; Z79.899 Other long term (current) drug therapy
CPT/HCPCS: 81025; 88305; 88342; 43239; 43251; J2704; 45385

== ENCOUNTER → 2024-01-12 | Outpatient (CLI) | payer BC ==
[2024-01-12 17:08] VITALS: BP 124/85; PULSE 88; RESP 16; TEMP 98.2; BMI 43.2
--- NOTE | 2024-01-12 17:56 | P.BASOAP ---
Subjective Progress Note Date: 01/12/24 Weight loss of 12 pounds. Protein 75 gram to 90 grams. Increase 90 oz. Consitpation and DVT prevention reviewed. She is dieting. Objective - Vital Signs Vital signs: Vital Signs Temp 98.2 F 01/12/24 17:03 Pulse 88 01/12/24 17:03 Resp 16 01/12/24 17:03 BP 124/85 01/12/24 17:03 Pulse Ox FiO2 Intake & Output 01/11/24 01/12/24 01/12/24 18:59 06:59 18:59 Weight 110.677 kg Assessment/Plan Plan: Date: 01/12/24 Initial Weight: 101.151 kg Initial BMI: 39.4 Current Weight: 110.677 kg Current BMI: 43.2 Type of Surgery: Total Volume in Band: Previous Volume: Volume Removed: Volume Added: Band Size:
== END | disposition home or self-care (01) ==
LOC: BARWHC3 16:02
PROVIDERS: ATTEND Surgery Plastic and Reconstructive Surgery
DX: E66.01 Morbid (severe) obesity due to excess calories (principal)
CPT/HCPCS: 99211

== ENCOUNTER → 2024-01-21 | Outpatient (CLI) | payer BC ==
[2024-01-21 15:27] LABS: Basophils # (A) 0.03 X 10*3/uL (0.00-0.10); Basophils % (A) 0.3 %; Eosinophils # (A) 0.19 X 10*3/uL (0.04-0.35); Eosinophils % (A) 2.2 %; HCT 38.8 % (37.2-46.3); HGB 12.4 g/dL (12.0-15.0); Lymphocytes # (A) 1.55 X 10*3/uL (0.90-5.00); MCH 24.5 pg (27.0-32.0); MCV 76.7 FL (80.0-97.0); Mean Platelet Volume 9.7 FL (9.5-12.2); Monocytes # (A) 0.56 X 10*3/uL (0.20-1.00); Monocytes % (A) 6.5 %; NRBC Per 100 WBC 0 X 10*3/uL (0.00-0.01); Neutrophils # (A) 6.25 X 10*3/uL (1.80-7.70); Neutrophils % (A) 72.5 %; Platelet Count 327 X 10*3/uL (140-440); RBC 5.06 X 10*6/uL (4.10-5.20); RDW 15.1 % (11.5-14.5); WBC 8.62 X 10*3/uL (4.50-10.00)
[2024-01-21 16:05] LABS: ALT 12 U/L (8-44); AST 14 U/L (13-35); Albumin 4.4 g/dL (3.8-4.9); Albumin/Globulin Ratio 1.57 Ratio (1.60-3.17); Alkaline Phosphatase 55 U/L (41-126); BUN/Creat Ratio 37.33 Ratio (12.00-20.00); Blood Urea Nitrogen 22.4 mg/dL (9.0-27.0); Calcium 9.4 mg/dL (8.7-10.3); Carbon Dioxide 20.5 mmol/L (21.6-31.8); Chloride 103 mmol/L (96-109); Globulin 2.8 g/dL (1.6-3.3); Glucose 114 mg/dL (70-110); Potassium 4.2 mmol/L (3.5-5.5); Sodium 137 mmol/L (135-145); Total Bilirubin 0.4 mg/dL (0.3-1.2); Total Protein 7.2 g/dL (6.2-8.2)
== END | disposition home or self-care (01) ==
LOC: LABPAT 11:29
PROVIDERS: ATTEND Surgery Plastic and Reconstructive Surgery
DX: Z01.812 Encounter for preprocedural laboratory examination (principal)
CPT/HCPCS: 80053; 85025; 86850; 86900; 86901

== ENCOUNTER 2024-01-31 08:00 | Inpatient (IN) | payer BC ==
[2024-01-31] MEDS ORDERED: LIDOCAINE 1% (10MG/ML) FOR IV START INTRADERMA PRN (08:46)
--- NOTE | 2024-01-31 08:49 | P.GSHP ---
History of Present Illness H&P Date: 01/31/24 CHIEF COMPLAINT: Morbid obesity HISTORY OF PRESENT ILLNESS: Maria Elena Valadez is a 33-year-old female who comes with lifelong morbid obesity. As result of morbid obesity, she has developed Dunn's esophagus, gestational diabetes, polycystic ovarian syndrome, osteoarthritis of the hips and knees. She has completed medical supervised weight loss. She completed medical including cardiac assessment. She has completed psychological risk assessment. All surgical options were reviewed. She elected for gastric bypass for management of Dunn's esophagus including morbid obesity. At height of 5 feet 3 inches, her ideal body weight is 144 pounds. She comes in 242 pounds. Her body mass index is 42.9. She is 104 pounds overweight. PAST MEDICAL HISTORY: 1. Morbid obesity due to excess calories 2. Body mass index of 42.9 3. Osteoarthritis of the knees. 4. Osteoarthritis of the lower back. 5. Dunn's esophagus 6. Polycystic ovarian syndrome 7. Gestational diabetes 8. Generalized anxiety disorder 9. Postop nausea and vomiting 10. Depressive disorder PAST SURGICAL HISTORY: 1. Cholecystectomy 2. Upper endoscopy HOME MEDICATIONS: Please see list and reviewed ALLERGIES: Please see list and reviewed SOCIAL HISTORY: Past tobacco use. FAMILY HISTORY: No family history of ulcerative colitis disease or Crohn's disease. Family history of morbid obesity. No lupus in the family. No reports of stomach or esophageal cancer. REVIEW OF ORGAN SYSTEMS: CONSTITUTIONAL: At height of 5 feet 3 inches, her ideal body weight is 144 pounds. She comes in 242 pounds. Her body mass index is 42.9. She is 104 pounds overweight. HEENT: Denies any active troubles with vision or hearing. ENDOCRINE: Has diabetes. Has hypothyroidism. CARDIOVASCULAR: Past reports of palpitations or heart attacks or chest pain. RESPIRATORY: Has daytime somnolence. GASTROINTESTINAL: Denies any bright red blood per rectum. Has gastroesophageal reflux disease with Dunn's esophagus MUSCULOSKELETAL: Has lower back pain and joint pain. Has osteoarthritis of the knees. NEURO: No headaches. No seizure disorders. PSYCH: Has depression. No suicidal ideation. RHEUMATOLOGIC: No lupus. No rheumatoid arthritis. HEMATOLOGIC: Denies any abnormal bleeding or bruising. No personal history of DVTs. SKIN: Has rash. No skin cancer. PHYSICAL EXAM: VITAL SIGNS: Height 5 foot 3 inches, weight 244pounds. BMI 42.9 GENERAL: Well-developed in no acute distress. HEENT: No scleral icterus. Extraocular movements grossly intact. Hears conversational speech. No nasal drainage. NECK: Supple without lymphadenopathy. CHEST: Nonlabored respirations with equal bilateral excursions. CARDIOVASCULAR: Regular rate and regular rhythm. Distal 2+ pulses. ABDOMEN: Obese, soft, nontender, nondistended. MUSCULOSKELETAL: No clubbing, cyanosis. NEURO: No focal or lateralizing signs. Cranial nerves 2 through 12 grossly within normal limits. PSYCH: Appropriate affect. Alert and oriented to person, place and time. SKIN: Good skin turgor. Well perfused. PLAN: 1. Bariatric options between a sleeve, band and a Vera-en-Y gastric bypass were reviewed in detail. The patient elected for gastric bypass to address both morbid obesity including Dunn's esophagus for severe gastroesophageal reflux disease. Robotic assisted approach described. 2. The [place] [facility] Data was also reviewed with benefits and risks as described. 3. An 8 page second-generation bariatric consent form was reviewed in detail including potential of bleeding, infection, leaks, adequate weight loss, nutritional deficiencies which the patient demonstrated understanding of the risks. 4. A 2 week high-protein low caloric 800 kcal diet described to address hepatomegaly. 5. Preoperative labs including complete metabolic panel and CBC with type and screen recommended. 6. DVT prophylaxis per [place] [facility]. 7. Antibiotic prophylaxis. 8. Inpatient hospitalization anticipated for more than 2 nights. 9. All questions and concerns were addressed with the patient. 10. Overall, patient has expressed understanding of bariatric care including postoperative diet and commitment of lifestyle. Patient should benefit from surgical intervention for correction of morbid obesity. 11. Targeted weight loss of 12 pounds described from 244 pounds to 232 pounds reviewed. Patient understands a weight loss then obtained, risk of canceling surgery as well as aborting her procedure reviewed. Past Medical History Past Medical History: GERD/Reflux Additional Past Medical History / Comment(s): PCOS. Gestational diabetes. Barretts esophagus. History of Any Multi-Drug Resistant Organisms: None Reported Date of last positivie culture/infection: 02/26/16 MDRO Source:: abdomen Past Surgical History: Section, Cholecystectomy Additional Past Surgical History / Comment(s): OPEN SURGERY FOR dermoid cyst on ovary removed. EGD. Past Anesthesia/Blood Transfusion Reactions: Motion Sickness, Postoperative Nausea & Vomiting (PONV) Additional Past Anesthesia/Blood Transfusion Reaction / Comment(s): sister with PONV Smoking Status: Never smoker - Past Family History Father Family Medical History: Cancer Additional Family Medical History / Comment(s): July 2015 of Esophageal cancer Mother Family Medical History: Diabetes Mellitus Medications and Allergies Home Medications Medication Instructions Recorded Confirmed Type Escitalopram [Lexapro] 20 mg PO DAILY 07/22/23 01/24/24 History Omeprazole 20 mg PO BID 10/21/23 01/24/24 History Allergies Allergy/AdvReac Type Severity Reaction Status Date / Time amoxicillin Allergy Mild Rash/Hives/ Verified 01/24/24 11:27 Dizziness nitrofurantoin Allergy Rash/Hives/ Verified 01/24/24 11:27 [From Macrobid] Dizziness
[2024-01-31] MEDS: CHLORHEXIDINE GLUCONATE 15 ML CUP MUCOUS MEM STA (13:41)
[2024-01-31] MEDS: SCOPOLAMINE 1 MG/72 HR PATCH TRANSDERM ONE (13:41)
[2024-01-31] MEDS: PANTOPRAZOLE 40 MG/10 ML VIAL IVP STA (13:41)
[2024-01-31] MEDS: ALVIMOPAN 12 MG CAPSULE PO PRN (13:41)
[2024-01-31] MEDS: LACTATED RINGERS 1,000 ML IV SCH (13:42)
[2024-01-31] MEDS: ONDANSETRON 4 MG/2 ML VIAL IVP PRN ×2 (13:42→17:42)
[2024-01-31] MEDS: DEXAMETHASONE SOD PHOSPHATE 4 MG/ML 1 ML VIAL IV ONE (13:42)
[2024-01-31] MEDS: ACETAMINOPHEN TAB 500 MG TAB PO PRN (13:43)
[2024-01-31] MEDS: IV FLUID CONTINUATION 1,000 ML IV ONE (13:52)
--- NOTE | 2024-01-31 14:08 | P.HPADDEND ---
H&P Addendum H&P Addendum Date: 01/31/24 Patient did not obtain weight loss goal of 12 pounds. Patient reviewed options of trial of surgery with uncertainty of completion/aborting case due to hepatomegaly. Patient understood and wished to proceed.
[2024-01-31] MEDS: MIDAZOLAM 2 MG/2 ML VIAL IV ONE (14:14)
[2024-01-31] MEDS ORDERED: KETAMINE HCL IN 0.9 % NACL 50 MG/5 ML SYRINGE ONE (14:27)
[2024-01-31] MEDS ORDERED: ROPIVACAINE 5 MG/ML 30 ML VIAL ONE (14:27)
[2024-01-31] MEDS ORDERED: MIDAZOLAM 2 MG/2 ML VIAL ONE (14:27)
[2024-01-31] MEDS ORDERED: ePHEDrine 50 MG/ML 1 ML VIAL ONE (14:27)
[2024-01-31] MEDS ORDERED: LIDOCAINE 1% INJ 10MG/ML (20 ML MDV) ONE (14:27)
[2024-01-31] MEDS ORDERED: SODIUM CHLORIDE 0.9% (PF) 10 ML VIAL ONE (14:27)
[2024-01-31] MEDS ORDERED: SUCCINYLCHOLINE CHLORIDE 200 MG/10 ML VIAL IV ONE (14:27)
[2024-01-31] MEDS ORDERED: PROPOFOL 10 MG/ML 20 ML VIAL IV ONE (14:27)
[2024-01-31] MEDS ORDERED: NEOSTIGMINE 1 MG/ML 10 ML VIAL ONE (14:27)
[2024-01-31] MEDS ORDERED: ROCURONIUM 10 MG/ML (5 ML VIAL) IV ONE (14:27)
[2024-01-31] MEDS ORDERED: fentaNYL (PF) 50 MCG/ML 2 ML AMP ONE (14:27)
[2024-01-31] MEDS ORDERED: DEXAMETHASONE SOD PHOSPHATE 4 MG/ML 1 ML VIAL ONE (14:27)
[2024-01-31] MEDS ORDERED: GLYCOPYRROLATE 0.2 MG/ML 2 ML VIAL ONE (14:27)
[2024-01-31] MEDS ORDERED: PHENYLEPHRINE-0.9% NACL SYG 1,000 MCG/10 ML SYRINGE ONE (14:27)
--- NOTE | 2024-01-31 14:27 | P.ANPRN ---
Procedure Note - Anesthesia - Nerve Block Performed Bilateral Erector Spinae Single Time Out Performed: Yes (1414) Date of Procedure: 01/31/24 Procedure Start Time: 14:15 Procedure Stop Time: 14:20 Location of Patient: PreOp Indication: Acute Post-Operative Pain, Requested by Surgeon Specifically requested for management of pain by : Darcy Duncan Sedation Type: Sedate with meaningful contact maintained Preparation: Sterile Prep Position: Sitting Catheter: None Needle Types: Pajunk Needle Gauge: 21 Ultrasound used to visualize needle placement: Yes Ultrasound used to observe medication spread: Yes Injectate: 0.5% Ropivacaine (see comment for volume) (20cc + 10cc nacl pf each side) Blood Aspirated: No Pain Paresthesia on Injection Noted: No Resistance on Injection: Normal Image Stored and Saved: Yes Events: Uneventful and Well Tolerated
[2024-01-31] MEDS: HEPARIN SODIUM,PORCINE 5,000 UNIT/ML 1 ML VIAL SQ PRN (14:29)
[2024-01-31] MEDS: LIDOCAINE 1%-EPI 1:100,000 20 ML VIAL SQ ONE (14:56)
[2024-01-31] MEDS: LACTATED RINGERS 1,000 ML IV ONE (15:29)
[2024-01-31] MEDS ORDERED: NALOXONE 0.4 MG/ML 1 ML VIAL IV PRN ×2 (17:40→17:44)
[2024-01-31] MEDS ORDERED: diphenhydrAMINE 50 MG/ML 1 ML VIAL IVP PRN (17:40)
[2024-01-31 17:42] VITALS: RESP 18
[2024-01-31] MEDS: HYDROmorphone 0.5 MG/0.5 ML SYRINGE IVP PRN (17:46)
--- NOTE | 2024-01-31 18:08 | P.OP ---
Date of Procedure: 01/31/24 Description of Procedure: SURGEON: ANNIE SINGH MD PREOPERATIVE DIAGNOSES: 1. Morbid obesity due to excess calories 2. Body mass index of 42.9 3. Osteoarthritis of the knees. 4. Osteoarthritis of the lower back. 5. Dunn's esophagus 6. Polycystic ovarian syndrome 7. Gestational diabetes 8. Generalized anxiety disorder 9. Postop nausea and vomiting 10. Depressive disorder POSTOPERATIVE DIAGNOSES: 1. Morbid obesity due to excess calories 2. Body mass index of 42.9 3. Osteoarthritis of the knees. 4. Osteoarthritis of the lower back. 5. Dunn's esophagus 6. Polycystic ovarian syndrome 7. Gestational diabetes 8. Generalized anxiety disorder 9. Postop nausea and vomiting 10. Depressive disorder 11. Fatty liver disease OPERATION: 1. Robotic assisted da Gely Xi laparoscopic Jimmy-en-Y gastric bypass, 100 cm antecolic antegastric Jimmy limb, with 25 mm EEA. 2. Intraoperative esophagogastrojejunoscopy with removal of foreign body. ANESTHESIA: GETA and local ESTIMATED BLOOD LOSS: 20 mL SPECIMENS REMOVED: None. COMPLICATIONS: NONE. Operative Findings: 1. Biliopancreatic limb 60 cm 2. Bypass performed using 100 cm jimmy limb secondary to avoid increased tension at 150 cm. 3. Jejunojejunostomy and Moody's defects closed using 2-0 V-LOC, green 4. Leak test negative with gastrojejunal anastomosis patent and hemostatic. 5. Reinforcement sutures were placed along the gastrojejunal anastomosis at 9:00, 12:00 and 3:00. INDICATIONS: Maria Elena Valadez is a 33-year-old female who comes with lifelong morbid obesity. As result of morbid obesity, she has developed Dunn's esophagus, gestational diabetes, polycystic ovarian syndrome, ost eoarthritis of the hips and knees. She has completed medical supervised weight loss. She completed medical including cardiac assessment. She has completed psychological risk assessment. All surgical options were reviewed. She elected for gastric bypass for management of Dunn's esophagus including morbid obesity. At height of 5 feet 3 inches, her ideal body weight is 144 pounds. She comes in 242 pounds. Her body mass index is 42.9. She is 104 pounds overweight. A second-generation bariatric consent form was described in detail including the possibility of protein malnutrition, leaks, gastrojejunal stricture, venous thrombosis, need for further surgery for which she demonstrated understanding. Benefits and risks of the procedure were described at length. Informed consent was obtained. DESCRIPTION: The patient was brought into the operating room theater. She was placed supine. She had received heparin subcutaneously for DVT prophylaxis. Additionally Peridex oral solution as an oral decontaminant was placed per anesthesia. After general induction, the abdomen was prepped and draped in standard sterile fashion. Ioban draping was placed along the abdomen. Milligan catheter was avoided. A robotic da Gely Xi system was prepped and primed. Incisions were proposed at 15 cm from the xiphoid. Proposed port sites were marked with indelible marker along the anterior axillary line bilaterally, mid clavicular line bilaterally with each port marked 10 cm from each other. The robotic stapler port was marked for the right midclavicular line including along the left midclavicular line. A 5 mm 0 degrees laparoscopic trocar entry was performed along the left upper quadrant. The abdomen was insufflated to 15 mmHg pressure, which she tolerated well. Diagnostic laparoscopy demonstrated no injury to bowel, viscera, or mesentery. The liver was consistent with her 2-week protein diet without hepatomegaly. Additionally, pelvic adhesions of omentum to the lower abdomen was found consistent with a prior C-sections. An 8 mm camera port was placed left lateral to the umbilicus at the epigastrium, 15 cm distal to the xiphoid. Next, 12-mm robot stapler port was placed along the right mid abdomen. An 12 mm port was exchanged along the left upper quadrant. An 8 mm port was placed on the left lateral abdominal wall under direct visualization Please note that the ports were placed 18 to 20 cm away from the target anatomy of the stomach. Care was taken to check that each robotic arm was safely away from collision with the bed or the patient. At the epigastrium, a medium sized Sena liver retractor was placed under direct visualization with the Iron Clam Grader placed under the right shoulder of the patient. The patient was repositioned in reverse Trendelenburg position at 25-degrees after lowering the bed. The robot was docked over the patient. Using grasper for arm 3, a grasper for arm 1, including vessel sealer for arm 4, the robotic system was docked and primed as described. Instruments were interchanged by the assistant restaurant general manager including endoscissors, the needle commercial collections driver, and stapler. I had sat at the console. Next, the transverse mesocolon was reflected into the upper abdomen for the jejunojejunostomy portion of the case. The ligament of Treitz was identified and measured 60 cm antegrade and marked using 3-0 Silk. The jejunum was divided at the 60 cm point using 60-mm white loads above the suture measurement. The biliopancreatic limb was held in place. The Jimmy limb was measured 100 cm in an antegrade fashion to avoid tension along the proposed gastrojejunal anastomosis. At 100 cm along the anti-mesenteric border of the Jimmy limb, a jejunojejunostomy was proposed whereby enterotomies were created along the biliopancreatic limb including the Jimmy limb using a Bovie cautery. A stay suture of 3-0 Slik was placed to align and create the anastomosis. The enterotomies along the anti- mesenteric borders were created followed by unidirectional fire from the patient's right side using 60 mm white loads Smart technology robotic stapler. The jejunojejunostomy was found to be hemostatic. The enterotomy was closed after horizontal mattress stitch of 3-0 silk used to elevate the enterotomy followed by closure with the robotic stapler blue load. The jejunal limb was temporarily tacked along the left upper quadrant. Attention was now brought to the creation of the gastrojejunostomy. Along the lesser curvature of the stomach, dissection was made along the retrogastric space to allow first firing of the robotic staple. Blue loads of 60 mm staplers were used to divide the stomach to create the gastric pouch. The patient was then prepared for placement of a Orvil. A 25-mm Orvil was selected for placement by the nurse buttonhole machine operator. An Olympus gastroscope was entered into the posterior oropharynx to advance the tubing into the gastric pouch under direct visualization as the tubing was lodged into the posterior oropharynx. The Orvil tubing was placed anterior to the staple line of the gastric pouch and brought out through the left inferior lateral port. I re-scrubbed into the case. The robotic arms were temporarily undocked. The Orvil was then carefully and successfully navigated with the help of the nurse buttonhole machine operator into the gastric pouch. The sutures were identified and divided. The tubing was from the 25 mm anvil. As the Orvil had been placed, the jejunal limb was brought proximally into the upper abdomen. No torsion was found upon the Jimmy limb. No tension was identified as the limb was brought along the upper abdomen. The jejunal limb was previously opened using hook cautery. The 25-mm EEA stapler was brought through the left anterior lateral port site from the left side. The EEA stapler was brought through the open jejunal limb and its needle was deployed at the antimesenteric border where the anvil were mated for approximately 1 minute upon firing. The stapler was removed after irrigating the shaft of the instrument with warm normal saline. Donuts were found to be intact and on both sides. The Snip.ly Xi robot arms were then re-docked. I sat at the console. The open jejunal limb defect was closed using 60 mm white load after releasing any tension from the blind jejunal limb. No redundancy was present for jejunal limb. The transverse mesocolon was divided for the jimmy limb. Reinforcement sutures were placed along the gastrojejunal anastomosis and placed along the 9:00, 12:00 o'clock position using 3-0 Vicryl. The Moody and jejunojejunostomy mesenteric defect was closed using 2-0 V LOC, green. I then went to the head of the bed to perform the esophagogastrojejunoscopy and a leak test. An Olympus gastroscope was passed alongthe posterior oropharynx which was unremarkable for any injury to the vocal cords. The scope was passed down to the proximal portion of the pouch, whereby no active bleeding was encountered. Excellent visualization of the gastrojejunostomy anastomosis, including the Jimmy limb was encountered with endoscopic image obtained. The anastomosis was found to be patent without active bleeding. Residual blood was suctioned from the gastric pouch. The gastrointestinal tract was desufflated. No evidence of intraoperative leak was encountered as the gastric pouch and anastomosis were submerged under normal saline solution. The robot was then undocked. I then went back to the bedside of the patient, whereby with coordinated effort of the assistant restaurant general manager, irrigation was aspirated from the upper abdominal cavity. Tisseel was placed circumferentially over the anastomosis of the gastrojejunostomy. The fascial defect of the EEA stapler was closed using Clive Reardon and 0 Vicryl. All instruments and pneumoperitoneum were evacuated from the abdominal cavity. The port correlating with the EEA stapler device was cleansed with normal saline solution and hydrogen peroxide. The rest of incisions were reapproximated using 4-0 Monocryl in an interrupted subcuticular fashion. Local anesthetic was infiltrated along the skin for postop analgesia. Liquid glue was applied to the skin. OptiFoam dressing was placed along the EEA stapler site. At the end of the procedure, needle, sponge and instrument count had been verified correct by the surgical scheduler. The patient had tolerated the procedure well and was extubated and taken to the postanesthesia unit in stable condition.
[2024-01-31] MEDS: ONDANSETRON 4 MG/2 ML VIAL IVP SCH (18:43)
[2024-01-31] MEDS: droPERidol 5 MG/2 ML VIAL IVP ONE (19:10)
[2024-01-31] MEDS: SIMETHICONE 80 MG CHEWABLE PO SCH (21:06)
[2024-01-31] MEDS: PANTOPRAZOLE 40 MG/10 ML VIAL IV SCH (21:06)
[2024-01-31] MEDS: HEPARIN SODIUM,PORCINE 5,000 UNIT/ML 1 ML VIAL SQ SCH (21:06)
[2024-01-31] MEDS: HYOSCYAMINE ORAL DROPS 1.875 MG/15 ML BOTTLE PO SCH (21:07)
[2024-01-31] MEDS: 0.9% NACL WITH KCL 20 MEQ/L 1,000 ML IV SCH (21:07)
[2024-01-31] MEDS: ACETAMINOPHEN IV (For NPO) 1,000 MG in EMPTY BAG 1 BAG IVPB SCH (21:10)
[2024-01-31] MEDS: ALBUTEROL NEBULIZED 2.5 MG/3 ML INHALATION SCH (22:01)
[2024-01-31] MEDS: fentaNYL PCA 500 MCG/50 ML BAG IV SCH (23:05)
[2024-01-31] MEDS: HYDROmorphone 1 MG/ML 1 ML SYRINGE IVP PRN (23:15)
[2024-02-01] MEDS: ONDANSETRON 4 MG/2 ML VIAL IVP STA (01:06)
[2024-02-01] MEDS: 0.9% NACL WITH KCL 20 MEQ/L 1,000 ML IV SCH (06:44)
[2024-02-01 08:42] LABS: Blood Urea Nitrogen 5.9 mg/dL (9.0-27.0); Chloride 102 mmol/L (96-109); Magnesium 1.7 mg/dL (1.5-2.4); Phosphorus 2.9 mg/dL (2.4-5.1); Potassium 4.1 mmol/L (3.5-5.5); Sodium 135 mmol/L (135-145)
[2024-02-01 08:43] LABS: Calcium 8.7 mg/dL (8.7-10.3)
[2024-02-01 09:45] LABS: HCT 39.3 % (37.2-46.3); HGB 12.7 g/dL (12.0-15.0); MCH 25.3 pg (27.0-32.0); MCHC 32.3 g/dL (32.0-37.0); MCV 78.3 FL (80.0-97.0); Mean Platelet Volume 10.2 FL (9.5-12.2); NRBC Per 100 WBC 0 X 10*3/uL (0.00-0.01); Platelet Count 349 X 10*3/uL (140-440); RBC 5.02 X 10*6/uL (4.10-5.20); RDW 15.7 % (11.5-14.5); WBC 23.04 X 10*3/uL (4.50-10.00)
[2024-02-01 10:37] LABS: Basophils # (A) 0.02 X 10*3/uL (0.00-0.10); Basophils % (A) 0.1 %; Eosinophils # (A) 0 X 10*3/uL (0.04-0.35); Eosinophils % (A) 0 %; Lymphocytes # (A) 0.58 X 10*3/uL (0.90-5.00); Lymphocytes % (A) 2.5 %; Monocytes # (A) 0.75 X 10*3/uL (0.20-1.00); Monocytes % (A) 3.3 %; Neutrophils # (A) 21.59 X 10*3/uL (1.80-7.70); Neutrophils % (A) 93.7 %
[2024-02-01] MEDS: SODIUM CHLORIDE 0.9% 2,000 ML IV ONE (15:17)
[2024-02-01 15:25] VITALS: BP 115/71; PULSE 90; TEMP 99.2
--- NOTE | 2024-02-01 15:32 | P.DS ---
Providers Date of admission: 01/31/24 13:01 Expected date of discharge: 02/01/24 Attending physician: Darcy Duncan Consults: 01/31/24 08:51 Consult Physician Routine Consulting Provider: [facility] Consult Reason/Comments: Abdominal wall block Do you want consulting provider notified?: Yes Primary care physician: [facility] Course: Discharge diagnosis 1. Morbid obesity due to excess calories 2. Body mass index of 42.9 3. Osteoarthritis of the knees. 4. Osteoarthritis of the lower back. 5. Dunn's esophagus 6. Polycystic ovarian syndrome 7. Gestational diabetes 8. Generalized anxiety disorder 9. Postop nausea and vomiting 10. Depressive disorder 11. Fatty liver disease 12. Leukocytosis possibly reactive from the [facility] course Maria Elena Valadez is a 33-year-old female who comes with lifelong morbid obesity. Patient is status post Robotic assisted laparoscopic Vera-en-Y gastric bypass. Patient tolerating diet. Her pain is controlled. She has been up and ambulating. She is afebrile. She denies any difficulty urinating. She is stable for discharge. Physician Plastic Mixer note has been reviewed by physician. Signing provider agrees with the documented findings, assessment, and plan of care. Patient Condition at Discharge: Stable Plan - Discharge Summary Discharge Rx Participant: No New Discharge Prescriptions: New Simethicone 40 mg/0.6 ml Drops [Mylicon Drops] 40 mg PO PCHS PRN #30 ml PRN Reason: Gas Acetaminophen Tab [Tylenol] 1,000 mg PO Q6HR PRN #30 tablet PRN Reason: Pain Ondansetron Odt [Zofran Odt] 4 mg PO Q8HR PRN #9 tab PRN Reason: Nausea bisacodyL [Dulcolax] 5 mg PO DAILY PRN #10 tab PRN Reason: Constipation Omeprazole [PriLOSEC] 40 mg PO DAILY #90 cap Discontinued Omeprazole 20 mg PO BID No Action Escitalopram [Lexapro] 20 mg PO DAILY Discharge Medication List Escitalopram [Lexapro] 20 mg PO DAILY 07/22/23 [History] Acetaminophen Tab [Tylenol] 1,000 mg PO Q6HR PRN #30 tablet 02/01/24 [Rx] Omeprazole [PriLOSEC] 40 mg PO DAILY #90 cap 02/01/24 [Rx] Ondansetron Odt [Zofran Odt] 4 mg PO Q8HR PRN #9 tab 02/01/24 [Rx] Simethicone 40 mg/0.6 ml Drops [Mylicon Drops] 40 mg PO PCHS PRN #30 ml 02/01/24 [Rx] bisacodyL [Dulcolax] 5 mg PO DAILY PRN #10 tab 02/01/24 [Rx] [facility] [place] [place] [facility] [place] [facility] 9:30 am Activity/Diet/Wound Care/Special Instructions: NO LONG DRIVES OR AIRPLANE RIDES OVER 30 MINUTES FOR THE NEXT 2 WEEKS, Feb 13 DUE TO HIGH RISK OF PULMONARY EMBOLISM/DVTs Liquid diet only for 2 weeks until Feb 13 May Shower. No soaking in bath tubs 2 weeks until Feb 13 Continue to use incentive spirometry to prevent pneumonias. Please continue to ambulate at home to prevent blood clots in legs. Please notify your surgeon if you develop nausea and vomiting including new onset of abdominal pain. No lifting over 4 pounds in 4 weeks, Mar 02 Drink 64 oz of fluid daily. Start protein shakes on . Notify bariatric center for temp over 101.0, increased pain, drainage from incisions. No straws or carbonated beverages. Liquid diet only. Sugar content should be less than 6 g to avoid dumping syndrome. Take MOM for constipation. CRUSH, OPEN, OR CUT TABLETS LARGER THAN A SIZE OF A TIC TAC Do Not take Lexapro due to increased bleeding risk, until seen by surgeon Discharge Disposition: HOME SELF-CARE
== END 2024-02-01 18:26 | disposition home or self-care (01) | DRG 621 ==
LOC: 2ORMAIN 13:01 → 4SSUR 18:17
PROVIDERS: ADMIT Surgery Plastic and Reconstructive Surgery; ATTEND Surgery Plastic and Reconstructive Surgery
PROC: 0DNU4ZZ Release Omentum, Percutaneous Endoscopic Approach (ICD-10-PCS; 2024-01-31)
PROC: 0DNW4ZZ Release Peritoneum, Percutaneous Endoscopic Approach (ICD-10-PCS; 2024-01-31)
PROC: 8E0W4CZ Robotic Assisted Procedure of Trunk Region, Percutaneous Endoscopic Approach (ICD-10-PCS; 2024-01-31)
PROC: 0D164ZA Bypass Stomach to Jejunum, Percutaneous Endoscopic Approach (ICD-10-PCS; principal; 2024-01-31 14:30)
DX: E66.01 Morbid (severe) obesity due to excess calories (principal); D72.829 Elevated white blood cell count, unspecified; E28.2 Polycystic ovarian syndrome; F32.A Depression, unspecified; K21.9 Gastro-esophageal reflux disease without esophagitis; F41.1 Generalized anxiety disorder; K66.0 Peritoneal adhesions (postprocedural) (postinfection); K22.70 Barrett's esophagus without dysplasia; K76.0 Fatty (change of) liver, not elsewhere classified; M16.0 Bilateral primary osteoarthritis of hip; R16.0 Hepatomegaly, not elsewhere classified; N73.6 Female pelvic peritoneal adhesions (postinfective); M17.0 Bilateral primary osteoarthritis of knee; Z79.899 Other long term (current) drug therapy; Z98.891 History of uterine scar from previous surgery; Z87.891 Personal history of nicotine dependence; Z68.41 Body mass index [BMI] 40.0-44.9, adult; Z90.49 Acquired absence of other specified parts of digestive tract
CPT/HCPCS: 64999; 80051; 81025; 82310; 82565; 83735; 84100; 84520; 85025

== ENCOUNTER → 2024-02-02 | Outpatient (CLI) | payer BC ==
[2024-02-02 10:00] VITALS: BP 118/88; PULSE 91; RESP 16; TEMP 98.1; BMI 40.8
== END | disposition home or self-care (01) ==
LOC: BARWHC3 09:39
PROVIDERS: ATTEND Surgery Plastic and Reconstructive Surgery
DX: E66.01 Morbid (severe) obesity due to excess calories (principal); Z71.3 Dietary counseling and surveillance; Z88.0 Allergy status to penicillin; Z88.1 Allergy status to other antibiotic agents; Z88.5 Allergy status to narcotic agent; Z68.41 Body mass index [BMI] 40.0-44.9, adult
CPT/HCPCS: 97802; G0463; 99211

== ENCOUNTER → 2024-02-02 | Outpatient (CLI) | payer BC ==
--- NOTE | 2024-02-02 12:53 | FL ---
EXAMINATION TYPE: FL barium swallow DATE OF EXAM: 02/02/2024 CLINICAL HISTORY: Status post gastric bypass Contrast: 2 oz ISO 370 The patient ingested contrast without difficulty or delay. Noted are postsurgical changes of gastric bypass. There is no evidence for leak or obstruction. Contrast is noted within the duodenum. IMPRESSION: Post-surgical change of gastric bypass without evidence for obstruction or leak at this p oint in time. [facility], , 02/02/2024 12:50 PM
== END | disposition home or self-care (01) ==
LOC: RADFLWHC 10:13
PROVIDERS: ATTEND Surgery Plastic and Reconstructive Surgery
DX: R13.10 Dysphagia, unspecified
CPT/HCPCS: 74220

== ENCOUNTER → 2024-02-04 | Outpatient (CLI) | payer BC ==
[2024-02-04 10:34] VITALS: BP 115/78; PULSE 84; RESP 16; TEMP 97.3
[2024-02-04] MEDS: SODIUM CHLORIDE 0.9% 1,000 ML IV ONE (10:35)
== END ==
LOC: PROCWHC3 10:29
PROVIDERS: ATTEND Surgery Plastic and Reconstructive Surgery
CPT/HCPCS: 96360

== ENCOUNTER → 2024-02-04 | Outpatient (CLI) | payer BC ==
[2024-02-04 10:46] VITALS: BP 115/78; PULSE 84; RESP 14; TEMP 98.7
--- NOTE | 2024-02-04 18:15 | P.BASOAP ---
Subjective Progress Note Date: 02/04/24 Patient seen and evaluated. She reports nausea. Fluid intake has been low. Goal protein and fluid intake over 72 ounces described. Recommend IV fluid bolus due to dehydration. Close follow-up as outpatient. No sign of infection. Objective - Vital Signs Vital signs: Vital Signs Temp 98.7 F 02/04/24 10:16 Pulse 84 02/04/24 10:16 Resp 14 02/04/24 10:16 BP 115/78 02/04/24 10:16 Pulse Ox FiO2 Intake & Output 02/03/24 02/04/24 02/04/24 18:59 06:59 18:59 Weight 106.141 kg Assessment/Plan Plan: Date: 02/04/24 Initial Weight: 101.151 kg Initial BMI: Current Weight: 106.141 kg Current BMI: Type of Surgery: Total Volume in Band: Previous Volume: Volume Removed: Volume Added: Band Size:
== END ==
LOC: BARWHC3 09:43
PROVIDERS: ATTEND Surgery Plastic and Reconstructive Surgery
DX: E66.01 Morbid (severe) obesity due to excess calories (principal); R11.0 Nausea; E86.0 Dehydration; Z88.0 Allergy status to penicillin; Z88.5 Allergy status to narcotic agent; Z88.1 Allergy status to other antibiotic agents; Z68.41 Body mass index [BMI] 40.0-44.9, adult
CPT/HCPCS: 99211

== ENCOUNTER → 2024-02-09 | Outpatient (CLI) | payer BC ==
[2024-02-09 16:33] VITALS: BP 110/75; PULSE 86; RESP 16; TEMP 98.2; BMI 40.1
--- NOTE | 2024-02-09 16:36 | P.BASOAP ---
Subjective Progress Note Date: 02/09/24 She reports occasional gas pain at [facility]. She reports drinking causing pain. Pain started last night. Protein shake took time to drink. She is having discomfort with warm beverages. Recommend esophagram. She is using the gasx. Objective - Vital Signs Vital signs: Vital Signs Temp 98.2 F 02/09/24 16:25 Pulse 86 02/09/24 16:25 Resp 16 02/09/24 16:25 BP 110/75 02/09/24 16:25 Pulse Ox FiO2 Intake & Output 02/08/24 02/09/24 02/09/24 18:59 06:59 18:59 Weight 104.326 kg Assessment/Plan Plan: Date: 02/09/24 Initial Weight: 101.151 kg Initial BMI: 38.9 Current Weight: 104.326 kg Current BMI: 40.1 Type of Surgery: Total Volume in Band: Previous Volume: Volume Removed: Volume Added: Band Size:
== END ==
LOC: BARWHC3 15:17
PROVIDERS: ATTEND Surgery Plastic and Reconstructive Surgery
DX: E66.01 Morbid (severe) obesity due to excess calories (principal); Z71.3 Dietary counseling and surveillance; Z88.0 Allergy status to penicillin; Z88.5 Allergy status to narcotic agent; Z88.1 Allergy status to other antibiotic agents; Z68.41 Body mass index [BMI] 40.0-44.9, adult
CPT/HCPCS: 97802; G0463; 99211

== ENCOUNTER → 2024-02-10 | Outpatient (CLI) | payer BC ==
--- NOTE | 2024-02-10 14:56 | FL ---
EXAMINATION TYPE: FL barium swallow DATE OF EXAM: 02/10/2024 CLINICAL HISTORY: Pain TECHNIQUE: A single contrast esophagram is performed utilizing barium. A total of 1 minute and 10 s econds of fluoroscopic time was utilized during procedure and 26 images obtained. Total dose area pr oduct (DAP) in uGy*m?, mGy*cm? (or similar) Not provided. COMPARISON: 02/02/2024 FINDINGS: Postsurgical changes compatible with gastric bypass. There is no evidence of obstruction or extravasation. Contrast passes into the small bowel. Small bowel is not dilated. IMPRESSION: 1. Postsurgical change with no evidence of obstruction or extravasation. [facility], , 02/10/2024 12:25 PM
== END ==
LOC: RADFLMAIN 11:13
PROVIDERS: ATTEND Surgery Plastic and Reconstructive Surgery
DX: R13.10 Dysphagia, unspecified (principal)
CPT/HCPCS: 74220

== ENCOUNTER → 2024-03-01 | Outpatient (CLI) | payer BC ==
[2024-03-01 14:42] VITALS: BP 125/85; PULSE 79; RESP 16; TEMP 98.5; BMI 38.5
--- NOTE | 2024-03-01 15:19 | P.BASOAP ---
Subjective Progress Note Date: 03/01/24 She reports GERD is better. She has rausch's. She denies reflux. She is doing very well. She lost 13 pounds in 3 weeks. Omeprazole to continue. Targerted 68 pounds. She wants to lose to 135 pounds. Recommend protein 80 to 100 grams. Goal of kcal is less than 900 kcal daily. Labs advised. Objective - Vital Signs Vital signs: Vital Signs Temp 98.5 F 03/01/24 14:36 Pulse 79 03/01/24 14:36 Resp 16 03/01/24 14:36 BP 125/85 03/01/24 14:36 Pulse Ox FiO2 Intake & Output 02/29/24 03/01/24 03/01/24 18:59 06:59 18:59 Weight 100.244 kg Assessment/Plan Plan: Date: 03/01/24 Initial Weight: 101.151 kg Initial BMI: 38.9 Current Weight: 100.244 kg Current BMI: 38.5 Type of Surgery: Total Volume in Band: Previous Volume: Volume Removed: Volume Added: Band Size:
[2024-03-02 02:28] LABS: HCT 37.7 % (37.2-46.3); HGB 12.1 g/dL (12.0-15.0); MCH 24.9 pg (27.0-32.0); MCHC 32.1 g/dL (32.0-37.0); MCV 77.6 FL (80.0-97.0); Mean Platelet Volume 11.1 FL (9.5-12.2); NRBC Per 100 WBC 0 X 10*3/uL (0.00-0.01); Platelet Count 249 X 10*3/uL (140-440); RBC 4.86 X 10*6/uL (4.10-5.20); RDW 17.4 % (11.5-14.5); WBC 6.48 X 10*3/uL (4.50-10.00)
[2024-03-02 03:31] LABS: Prealbumin 17.9 mg/dL (18.0-42.0)
[2024-03-02 03:36] LABS: % Iron Saturation 7.37 (12.00-45.00); ALT 71 U/L (8-44); AST 41 U/L (13-35); Albumin 4.4 g/dL (3.8-4.9); Albumin/Globulin Ratio 1.69 Ratio (1.60-3.17); Alkaline Phosphatase 70 U/L (41-126); BUN/Creat Ratio 17.17 Ratio (12.00-20.00); Blood Urea Nitrogen 10.3 mg/dL (9.0-27.0); Calcium 9.4 mg/dL (8.7-10.3); Carbon Dioxide 20.7 mmol/L (21.6-31.8); Chloride 104 mmol/L (96-109); Chol/HDL Ratio 3.94 Ratio; Ferritin 34.1 ng/mL (10.0-291.0); Globulin 2.6 g/dL (1.6-3.3); Glucose 101 mg/dL (70-110); Iron 25 UG/DL (50-170); LDL Cholesterol,Calculated 68.9 mg/dL (0.0-131.0); Magnesium 1.6 mg/dL (1.5-2.4); Phosphorus 3.3 mg/dL (2.4-5.1); Potassium 3.7 mmol/L (3.5-5.5); Sodium 140 mmol/L (135-145); Total Bilirubin 0.5 mg/dL (0.3-1.2); Total Iron Binding Capacity 339 UG/DL (228-460)
[2024-03-02 12:34] LABS: Zinc, Serum 93 ug/dL (60-130)
[2024-03-03 05:50] LABS: Vit B1(Thiamine) 27 ug/L (38-122)
[2024-03-03 13:00] LABS: Vitamin A 41 ug/dL (38-106)
[2024-03-09 01:42] LABS: Selenium 96 mcg/L (63-160)
== END ==
LOC: BARWHC3 14:30
PROVIDERS: ATTEND Surgery Plastic and Reconstructive Surgery
DX: E66.01 Morbid (severe) obesity due to excess calories (principal); Z68.38 Body mass index [BMI] 38.0-38.9, adult; Z71.3 Dietary counseling and surveillance
CPT/HCPCS: 80053; 80061; 82306; 82525; 82607; 82728; 82746; 83036; 83540; 83550; 83735; 83970; 84100; 84134; 84255; 84425; 84443; 84590; 84630; 85027; 85730; 97803; 99211

== ENCOUNTER → 2024-06-19 | Outpatient (CLI) | payer BC ==
[2024-06-19 16:26] LABS: INR 1.1 (<1.2); Partial Thromboplastin Time 25.4 sec (22.0-30.0); Prothrombin Time 11.6 sec (10.0-12.5)
[2024-06-19 21:01] LABS: HCT 38.4 % (37.2-46.3); HGB 12.5 g/dL (12.0-15.0); MCH 25.8 pg (27.0-32.0); MCHC 32.6 g/dL (32.0-37.0); MCV 79.2 FL (80.0-97.0); Mean Platelet Volume 10.8 FL (9.5-12.2); NRBC Per 100 WBC 0 X 10*3/uL (0.00-0.01); Platelet Count 309 X 10*3/uL (140-440); RBC 4.85 X 10*6/uL (4.10-5.20); RDW 15.5 % (11.5-14.5); WBC 7.58 X 10*3/uL (4.50-10.00)
[2024-06-19 21:12] LABS: % Iron Saturation 9.51 (12.00-45.00); ALT 27 U/L (8-44); AST 23 U/L (13-35); Albumin 4.4 g/dL (3.8-4.9); Albumin/Globulin Ratio 1.52 Ratio (1.60-3.17); Alkaline Phosphatase 79 U/L (41-126); BUN/Creat Ratio 20.88 Ratio (12.00-20.00); Blood Urea Nitrogen 16.7 mg/dL (9.0-27.0); Calcium 9.5 mg/dL (8.7-10.3); Carbon Dioxide 20.1 mmol/L (21.6-31.8); Chloride 104 mmol/L (96-109); Chol/HDL Ratio 3.86 Ratio; Globulin 2.9 g/dL (1.6-3.3); Glucose 102 mg/dL (70-110); Iron 37 UG/DL (50-170); LDL Cholesterol,Calculated 51.4 mg/dL (0.0-131.0); Magnesium 1.9 mg/dL (1.5-2.4); Phosphorus 4.2 mg/dL (2.4-5.1); Potassium 4.5 mmol/L (3.5-5.5); Sodium 137 mmol/L (135-145); Total Bilirubin 0.3 mg/dL (0.3-1.2); Total Iron Binding Capacity 389 UG/DL (228-460); Total Protein 7.3 g/dL (6.2-8.2)
[2024-06-19 21:38] LABS: Prealbumin 18.8 mg/dL (18.0-42.0)
[2024-06-20 13:01] LABS: Zinc, Serum 71 ug/dL (60-130)
[2024-06-21 08:54] LABS: Vitamin A 39 ug/dL (38-106)
== END | disposition home or self-care (01) ==
LOC: LABWHC1 15:32
PROVIDERS: ATTEND Surgery Plastic and Reconstructive Surgery
DX: K50.90 Crohn's disease, unspecified, without complications (principal); E89.1 Postprocedural hypoinsulinemia; D50.8 Other iron deficiency anemias; D50.9 Iron deficiency anemia, unspecified; K91.2 Postsurgical malabsorption, not elsewhere classified; E44.0 Moderate protein-calorie malnutrition; E55.9 Vitamin D deficiency, unspecified; K74.1 Hepatic sclerosis; N19 Unspecified kidney failure; T56.894A Toxic effect of other metals, undetermined, initial encounter
CPT/HCPCS: 36415; 80053; 80061; 82306; 82525; 82607; 82728; 82746; 83036; 83540; 83550; 83735; 83970; 84100; 84134; 84255; 84425; 84443; 84590; 84630; 85027; 85610; 85730

== ENCOUNTER 2024-07-08 04:22 | Emergency (ER) | payer BC ==
[2024-07-08 04:28] VITALS: TEMP 98.7
[2024-07-08] MEDS: LIDOCAINE 1%-EPI 1:100,000 20 ML VIAL SQ STA (05:56)
[2024-07-08] MEDS: LIDOCAINE/EPINEPHR/TETRACAINE 5 ML BOTTLE TOPICAL ONE (05:56)
[2024-07-08] MEDS: CEPHALEXIN 500 MG CAP PO STA (05:57)
[2024-07-08] MEDS: cefTRIAXone 1,000 MG VIAL (IM USE) IM STA (06:07)
[2024-07-08 06:11] VITALS: BP 118/68; PULSE 88; RESP 16
--- NOTE | 2024-07-08 06:22 | ED ---
General Adult HPI - General Chief complaint: Skin/Abscess/Foreign Body Stated complaint: boil Source: patient Mode of arrival: ambulatory Limitations: no limitations - History of Present Illness Initial comments: Patient is a pleasant 33 y/o female PMH recurrently skin abscesses, PCOS, presenting today for abscess on her abdomen. Started earlier this week as a boil on the right side of her abdomen and continued to spread w/ surrounding erythema. States she has had to be admitted previously when she became septic and abscess. States she came in at this time to address the area before she becomes septic. She currently denies systemic symptoms including nausea, vomiting, diarrhea, fevers or chills. No constipation. Endorses allergy to amoxicillin and nitrofurantoin. No history MRSA. No history diabetes or being immunocompromised. - Related Data Home Medications Medication Instructions Recorded Confirmed Escitalopram [Lexapro] 20 mg PO DAILY 07/22/23 06/07/24 Omeprazole [PriLOSEC] 40 mg PO DAILY 02/02/24 06/07/24 Calcium Citrate 3 tab PO HS 06/07/24 06/07/24 Multivit/Iron Sulf/Folic Acid 1 tab PO DAILY 06/07/24 06/07/24 [Multivitamin with Iron] Vitamin B Complex 1 cap PO DAILY 06/07/24 06/07/24 Previous Rx's Medication Instructions Recorded Cephalexin [Keflex] 500 mg PO Q6HR 1 Days #28 cap 07/08/24 Sulfamethox-Tmp 800-160Mg [Bactrim 1 each PO Q12HR 7 Days #14 tab 07/08/24 DS 800-160 mg] Allergies Allergy/AdvReac Type Severity Reaction Status Date / Time amoxicillin Allergy Mild Rash/Hives/ Verified 07/08/24 04:28 Dizziness hydromorphone [From Dilaudid] Allergy Nausea & Verified 07/08/24 04:28 Vomiting nitrofurantoin Allergy Rash/Hives/ Verified 07/08/24 04:28 [From Macrobid] Dizziness Review of Systems ROS Statement: Those systems with pertinent positive or pertinent negative responses have been documented in the HPI. ROS Other: All systems not noted in ROS Statement are negative. Past Medical History Past Medical History: GERD/Reflux Additional Past Medical History / Comment(s): PCOS. Gestational diabetes. 5 months . Barretts esophagus. History of Any Multi-Drug Resistant Organisms: None Reported Date of last positivie culture/infection: 02/26/16 MDRO Source:: abdomen Past Surgical History: Bariatric Surgery, Section, Cholecystectomy Additional Past Surgical History / Comment(s): OPEN SURGERY FOR dermoid cyst on ovary removed. EGD. Gastric Bypass 01-31-24 Past Anesthesia/Blood Transfusion Reactions: Motion Sickness, Postoperative Nausea & Vomiting (PONV) Additional Past Anesthesia/Blood Transfusion Reaction / Comment(s): sister with PONV Past Psychological History: No Psychological Hx Reported Smoking Status: Former smoker Past Alcohol Use History: Occasional Past Drug Use History: None Reported - Past Family History Father Family Medical History: Cancer Additional Family Medical History / Comment(s): July 2015 of Esophageal cancer Mother Family Medical History: Diabetes Mellitus General Exam - General Exam Comments Initial Comments: Vital signs reviewed General: Well-appearing, nontoxic, no acute distress. Head: Normocephalic, atraumatic Eyes: PERRLA, EOMI ENT: Airway patent Chest: Nonlabored breathing, equal chest rise and chest fall Abdomen: Abdomen is soft and nontender with active bowel sounds, no hernias, no masses, guarding or rebound tenderness Skin: Erythematous fluctuant, raised lesion approximately 10 cm in diameter with well-demarcated area of surrounding erythema with irregular margins approximately 20 cm in diameter, scant clear discharge from punctate lesion on top of the abscess, overlying the inferior right lower quadrant of the abdomen, this does not extend over the obliquus Neuro: Alert and oriented 3 Musculoskeletal: No gross abnormalities Limitations: no limitations Course Vital Signs 07/08/24 07/08/24 04:26 06:11 Temperature 98.7 F Pulse Rate 98 88 Respiratory 18 16 Rate Blood Pressure 112/75 118/68 O2 Sat by Pulse 96 100 Oximetry Procedures - Incision & Drainage Consent Obtained: verbal consent Site: abdomen Anesthetic Used: lidocaine 1%, with epi Amount (mLs): 5 I&D Cleaning Method: Wound Cleanser Scalpel Used: #11 Ultrasound used: Yes Needle Aspiration Performed?: No Irrigation Performed?: Yes I&D Drainage Obtained: Pus, Blood Loculation Noted: probing needed to break Insertion of drain: No Packing: Plain Culture Obtained?: No Medical Decision Making - Medical Decision Making Was pt. sent in by a medical professional or institution (, PA, ARBORICULTURE TEACHER, urgent care, hospital, or skilled nursing...) When possible be specific @ -No Did you speak to anyone other than the patient for history (EMS, parent, family, police, friend...)? What history was obtained from this source @ -No Did you review nursing and triage notes (agree or disagree)? Why? @ -I reviewed nursing and triage notes Were old charts reviewed (outside hosp., previous admission, EMS record, old EKG, old radiological studies, urgent care reports/EKG's, skilled nursing records)? Report findings @ -Medical records reviewed-reviewed discharge summary from admission in January 2024 when patient had been admitted for Vera-en-Y gastric bypass, additionally due to documented allergy to amoxicillin I reviewed patient's chart to ensure she has previously tolerated Rocephin and cephalexin ED visit from August 2023 documents that patient did receive both of these antibiotics previously Differential Diagnosis (chest pain, altered mental status, abdominal pain women, abdominal pain men, vaginal bleeding, weakness, fever, dyspnea, syncope, headache, dizziness, GI bleed, back pain, seizure, CVA, palpatations, mental health, musculoskeletal)? @Differential diagnosis remains broad however top considerations include cellulitis, abscess, ingrown hair, sebaceous cyst, this is not all-inclusive list. EKG interpreted by me (3pts min.). @ -As above X-rays interpreted by me (1pt min.). @ -None done CT interpreted by me (1pt min.). @ -None done U/S interpreted by me (1pt. min.). @ -None done What testing was considered but not performed or refused? (CT, X-rays, U/S, labs)? Why? @ -None What meds were considered but not given or refused? Why? @Tylenol, Toradol was considered however patient politely declined Did you discuss the management of the patient with other professionals (professionals i.e. , PA, ARBORICULTURE TEACHER, lab, RT, psych nurse, social insurance specialist, private wealth advisor, teacher, dog control officer, test case developer)? Give summary @ -No Was smoking cessation discussed for >3mins.? @ -No Was critical care preformed (if so, how long)? @ -No Were there social determinants of health that impacted care today? How? (Homelessness, low income, unemployed, alcoholism, drug addiction, transportation, low edu. Level, literacy, decrease access to med. care, longterm, rehab)? @ -No Was there de-escalation of care discussed even if they declined (Discuss DNR or withdrawal of care, Hospice)? @ -No What co-morbidities impacted this encounter? (DM, HTN, Smoking, COPD, CAD, Cancer, CVA, ARF, Chemo, Hep., AIDS, mental health diagnosis, sleep apnea, morbid obesity)? Recurrent skin abscesses Was patient admitted / discharged? Hospital course, mention meds given and route, prescriptions, significant lab abnormalities, going to OR and other pertinent info. @ -Discharged-this is a pleasant 33-year-old female history of recurrent absces ses right lower quadrant abdominal wall abscess cellulitis. On my assessment patient is well-appearing, rest comfortably no acute distress. Exam is without hernia or palpable masses with exception of erythematous area of on the right lower quadrant of the abdomen with surrounding erythema most concerning for abscess with surrounding cellulitis. Patient's vitals are within acceptable limits on arrival and she is afebrile and nontoxic-appearing she denies systemic symptoms. Given patient's history of bacteremia secondary to untreated abscess, patient will receive an IM dose of Rocephin, incision and drainage will be performed and she will be discharged w/ oral antibiotics. Patient was offered pain control however she politely declined. Ultrasound was used to evaluate the raised fluctuant lesion of the abdomen to confirm presence of abscess and identify fluid pocket and the site for incision. The incision and drainage was performed. Pt tolerated procedure well. The surrounding region of erythema was marked with a skin marker so that patient could monitor the area closely for any progression. Discussed w/ pt care of I &D site, importance of taking antibiotics as prescribed and strict return precautions. All questions were answered and pt was discharged in good condition. In my medical judgment there is currently no evidence of an immediate life- threatening or surgical condition. Discharge is therefore indicated at this time. Discharge treatment instructions, follow up instructions, and appropriate emergency department return precautions were discussed with the patient and/or medical decision maker. Patient and/or medical decision maker expressed understanding of and agreed with the treatment plan, follow up instructions, and emergency department return precaution. All patient's and/or medical decision maker's questions were answered. The patient was instructed to return to the ED for any changes in symptoms, persistent symptoms, inability to obtain proper follow-up or for any further concerns. Patient received verbal and written instructions for this condition. Undiagnosed new problem with uncertain prognosis? @ -No Drug Therapy requiring intensive monitoring for toxicity (Heparin, Nitro, Insulin, Cardizem)? @ -No Were any procedures done? @I& D Diagnosis/symptom? @ abscess w/ overlying cellulitis Acute, or Chronic, or Acute on Chronic? @acute Uncomplicated (without systemic symptoms) or Complicated (systemic symptoms)? @ uncomplicated Side effects of treatment? @ -No Exacerbation, Progression, or Severe Exacerbation? @ -No Poses a threat to life or bodily function? How? (Chest pain, [place], OR, pneumonia, PE, COPD, DKA, ARF, appy, cholecystitis, CVA, Diverticulitis, Homicidal, Suicidal, threat to staff... and all critical care pts) @ -No Disposition Clinical Impression: Abscess of skin of abdomen, Cellulitis Disposition: HOME SELF-CARE Condition: Good Instructions (If sedation given, give patient instructions): Cellulitis (ED), Abscess Incision and Drainage (ED) Additional Instructions: Every disease is a spectrum and a small chance still exists that a serious condition could develop, for this reason, please monitor yourself closely for new, changing or worsening symptoms, redness that spreads outside of the marked area on your skin, uncontrolled pain, worsening swelling or return of swelling or abscess was drained, nausea vomiting, diarrhea fevers or chills, should redness fail to improve in the next 24-48 hours, fever, inability to tolerate/keep down fluids or your medications, inability to follow up with outpatient providers as instructed and should you experience these symptoms or should you have any further concerns for your wellbeing please return to the ED or call 911 immediately. Please remove packing in 48 hours. If you are able to, please schedule follow up with general surgery or your PCP for re-evaluation and removal of packing. If unable to, and symptoms are improving you may remove packing yourself. You may apply warm compresses to the area to encourage continued drainage. Please take antibiotics as prescribed. PLEASE call your primary care physician as soon as possible to arrange / discuss plan for followup appointment. Appointment in the next 1-3 days is strongly encouraged if possible. PLEASE let us know here before you leave if there is anything further we can do to be of any assistance. Take care and feel Better! Prescriptions: Sulfamethox-Tmp 800-160Mg [Bactrim DS 800-160 mg] 1 each PO Q12HR 7 Days #14 tab Cephalexin [Keflex] 500 mg PO Q6HR 1 Days #28 cap Is patient prescribed a controlled substance at d/c from ED?: No Referrals: None,Stated [Primary Care Provider] - 1-2 days
== END 2024-07-08 06:24 | disposition home or self-care (01) ==
LOC: EC 04:22
DX: L02.211 Cutaneous abscess of abdominal wall (principal); L03.311 Cellulitis of abdominal wall; Z88.0 Allergy status to penicillin; Z88.1 Allergy status to other antibiotic agents; Z88.5 Allergy status to narcotic agent; Z87.891 Personal history of nicotine dependence
CPT/HCPCS: 10060; 96372; 99283; J0696